=== PATIENT | female | born 1950 | race Hispanic/Latino ===

== ENCOUNTER 2021-04-21 19:59 | Inpatient (IN) | payer MEDICARE ==
[2021-04-21] MEDS ORDERED: dexAMETHasone 4 MG/ML VIAL IV ONE (21:23)
[2021-04-21] MEDS ORDERED: SODIUM CHLORIDE 0.9% 500 ML 500 ML IV ONE (21:23)
--- NOTE | 2021-04-21 21:27 | Emergency Department Report ---
ED General Adult HPI - General Chief complaint: Weakness Stated complaint: SYNCOPE PUI?: Yes Time Seen by Provider: 04/21/21 21:23 Source: patient, EMS (Verbal report received from emergency medical services. EMS documentation not available at time of chart dictation ), RN notes reviewed, old records reviewed Mode of arrival: Stretcher Limitations: Physical Limitation - History of Present Illness Initial comments: The patient was evaluated in the emergency department for symptoms described in the history of present illness. He/she was evaluated in the context of the global COVID-19 pandemic, which necessitated consideration that the patient might be at risk for infection with the virus that causes COVID-19. [facility] protocols and algorithms that pertain to the evaluation of patients at risk for COVID-19 are in a state of rapid change based on information released by regulatory bodies including the CDC and federal and state organizations. These policies and algorithms were followed during the patient's care in the emergency department. Please note that these policies, procedures and recommendations changed on a rapid basis. Past medical history: Diabetes, hypertension, high cholesterol The patient is a 70-year-old female who is not COVID-19 vaccinated. She is brought to the hospital by emergency medical services with an EMS articulated complaint of weakness, syncope, tachypnea, and hypoxia. EMS reports that they were called for the patient having an episode of weakness, and passing out. The patient denies physical pain. The patient admits to loss of taste and smell. Patient reports that significant other/partner has recently been diagnosed with COVID. Patient denies headache, neck pain, chest pain, abdominal pain, hematemesis and bright red blood per rectum. She feels short of breath. EMS reports the patient was hypoxic in the field to 90%, and they started her on 3 L of supple mental oxygen. EMS also notes that the patient is tachypneic. Patient corroborates that she feels tachypnea -: Gradual, hour(s) Consistency: constant Improves with: none Worsens with: none - Related Data Home Medications Medication Instructions Recorded Confirmed Last Taken Insulin NPH/Regular [NovoLIN 70/30] 20 unit SQ BID 12/15/12 12/15/12 12/05/12 Tramadol HCl [Ultram ER] 100 mg PO BID 12/15/12 12/15/12 12/14/12 lisinopriL [Zestril TAB] 5 mg PO QDAY 12/15/12 12/15/12 12/14/12 metFORMIN [Glucophage] 500 mg PO BID 12/15/12 12/15/12 12/04/12 Previous Rx's Medication Instructions Recorded Last Taken Type levoFLOXacin [Levaquin TAB] 500 mg PO Q24HR #7 tablet 12/17/12 Unknown Rx Allergies Allergy/AdvReac Type Severity Reaction Status Date / Time promethazine HCl AdvReac Unknown Verified 12/15/12 09:33 [From Phenergan] ED Review of Systems ROS: Stated complaint: SYNCOPE Other details as noted in HPI Constitutional: malaise, weakness ENT: other Respiratory: shortness of breath Cardiovascular: syncope. denies: chest pain Gastrointestinal: denies: abdominal pain, hematemesis, melena, hematochezia Neurological: weakness Hematological/Lymphatic: denies: easy bleeding ED Past Medical Hx - Past Medical History Hx Congestive Heart Failure: No Hx Diabetes: Yes Hx Asthma: No Hx COPD: No Additional medical history: fibromialgia, neuropathy, - Surgical History Additional Surgical History: galbladder x 25 yrs femur fx, tubal ligation - Social History Smoking Status: Never Smoker - Medications Home Medications: Home Medications Medication Instructions Recorded Confirmed Last Taken Type Insulin NPH/Regular [NovoLIN 70/30] 20 unit SQ BID 12/15/12 12/15/12 12/05/12 History Tramadol HCl [Ultram ER] 100 mg PO BID 12/15/12 12/15/12 12/14/12 History lisinopriL [Zestril TAB] 5 mg PO QDAY 12/15/12 12/15/12 12/14/12 History metFORMIN [Glucophage] 500 mg PO BID 12/15/12 12/15/12 12/04/12 History levoFLOXacin [Levaquin TAB] 500 mg PO Q24HR #7 tablet 12/17/12 Unknown Rx ED Physical Exam - General Limitations: Physical Limitation General appearance: alert, anxious, in distress, obese - Head Head exam: Present: atraumatic, normocephalic - Eye Eye exam: Present: normal appearance, EOMI - ENT ENT exam: Present: normal exam, normal orophraynx, mucous membranes moist, normal external ear exam - Neck Neck exam: Present: normal inspection, full ROM. Absent: tenderness, meningismus - Respiratory Respiratory exam: Present: respiratory distress, stridor, other (Tachypnea is noted. Pulmonary auscultation not performed secondary to lack of disposable steps) - Cardiovascular Cardiovascular Exam: Present: regular rate (Seen on EKG. Cardiac auscultation not performed secondary to lack of disposable stethoscope), normal rhythm - GI/Abdominal GI/Abdominal exam: Present: soft. Absent: distended, tenderness, guarding, rebound, rigid, pulsatile mass - Extremities Exam Extremities exam: Present: normal inspection, full ROM, other (2+ pulses noted in the bilateral upper and lower extremities. There is no palpable cord. negative Homans sign. Muscular compartments are soft. The pelvis is stable.). Absent: pedal edema, calf tenderness - Back Exam Back exam: Present: normal inspection. Absent: tenderness, CVA tenderness (R), CVA tenderness (L), paraspinal tenderness, vertebral tenderness - Neurological Exam Neurological exam: Present: alert, other (No facial droop. Tongue midline. Extraocular movements intact bilaterally. Facial sensation intact to light touch in V1, V2, V3 distribution bilaterally. 5 and a 5 strength in 4 extremities. Sensation intact to light touch in 4 extremities.) - Psychiatric Psychiatric exam: Present: anxious - Skin Skin exam: Present: warm, dry, intact, normal color. Absent: rash ED Course Vital Signs 04/22/21 01:06 Temperature 97.9 F Pulse Rate 90 Respiratory 20 Rate Blood Pressure 149/62 O2 Sat by Pulse 98 Oximetry - Reevaluation(s) Reevaluation #1: 04/21/21 22:06 Differential diagnosis, including but not limited to: Hypoxic respiratory failure, COVID-19, pulmonary embolism, dehydration, electrolyte derangement Assessment and plan: 70-year-old female presenting during the COVID-19 pandemic, who is not COVID-19 vaccinated, presenting with multiple for typical COVID symptoms, and syncope. She is currently awake, alert, oriented, sober and of sound mind. As per EMS reports she did not fall or hit her head, her caught her. Given advanced age, medical comorbidities, place patient on threat monitoring analyst, continue 3 L of supplemental oxygen, obtain EKG, appropriate laboratory studies, CT scan of the brain given history of syncope, CT angiogram chest given history of syncope and suspicion for COVID/pulmonary embolism, start patient on Decadron, antibiotics, admit the patient to the medical service once initial diagnostics have resulted. I discussed this plan of care with the patient. She is agreeable to this plan of care. Reassess after initial data points. Anticipate admission. 04/21/21 23:07 Laboratory studies are reviewed and appreciated. Patient found to be hyperglycemic with anion gap acidosis. Arterial blood gas ordered to further delineate. Insulin ordered. CT scan is pending. 04/21/21 23:42 Arterial blood gas demonstrates normal pH, but metabolic acidosis, with respiratory compensation. This may be secondary to diabetes/hyperglycemia, COVID-19, or both 04/21/21 23:52 Received verbal report from radiologist that patient has multi lobar pneumonia which is likely COVID-pneumonia, right-sided pulmonary emboli, segmental, and subsegmental, without evidence of right heart strain. CT scan of the brain is negative. Patient reports that she weighs 200 pounds, this is approximately 90 kg. Lovenox is ordered. Patient is updated on diagnoses and plan of care. Hospital physician, Dr. Oneil to admit to [facility] ED Medical Decision Making - Lab Data Result diagrams: 04/21/21 21:39 04/21/21 21:39 Lab Results 04/21/21 04/21/21 04/21/21 Range/Units 21:39 21:39 21:39 WBC (4.5-11.0) K/mm3 RBC (3.65-5.03) M/mm3 Hgb (10.1-14.3) gm/dl Hct (30.3-42.9) % MCV (79-97) fl MCH (28-32) pg MCHC (30-34) % RDW (13.2-15.2) % Plt Count (140-440) K/mm3 Seg Neutrophils % PT 15.5 H (12.2-14.9) Sec. INR 1.11 (0.87-1.13) D-Dimer > 76926 H (0-234) ng/mlDDU Sodium (137-145) mmol/L Potassium (3.6-5.0) mmol/L Chloride (98-107) mmol/L Carbon Dioxide (22-30) mmol/L Anion Gap mmol/L BUN (7-17) mg/dL Creatinine (0.6-1.2) mg/dL Estimated GFR ml/min BUN/Creatinine Ratio % Glucose 439 H (65-100) mg/dL Lactic Acid (0.7-2.0) mmol/L Calcium (8.4-10.2) mg/dL Magnesium (1.7-2.3) mg/dL Ferritin 399.4 H (10.0-200.0) ng/mL Total Bilirubin (0.1-1.2) mg/dL AST (5-40) units/L ALT (7-56) units/L Alkaline Phosphatase (35-129) units/L Lactate Dehydrogenase 509 H (91-180) units/L Troponin T (0.00-0.029) ng/mL C-Reactive Protein 19.00 H (0.00-1.30) mg/dL Total Protein (6.3-8.2) g/dL Albumin (3.9-5) g/dL Albumin/Globulin Ratio % 04/21/21 04/21/21 04/21/21 Range/Units 21:39 21:39 21:39 WBC 10.2 (4.5-11.0) K/mm3 RBC 4.13 (3.65-5.03) M/mm3 Hgb 11.8 (10.1-14.3) gm/dl Hct 36.6 (30.3-42.9) % MCV 89 (79-97) fl MCH 29 (28-32) pg MCHC 32 (30-34) % RDW 13.7 (13.2-15.2) % Plt Count 219 (140-440) K/mm3 Seg Neutrophils % Plan Checker PT (12.2-14.9) Sec. INR (0.87-1.13) D-Dimer (0-234) ng/mlDDU Sodium 134 L (137-145) mmol/L Potassium 4.9 (3.6-5.0) mmol/L Chloride 93.8 L (98-107) mmol/L Carbon Dioxide 16 L (22-30) mmol/L Anion Gap 29 mmol/L BUN 20 H (7-17) mg/dL Creatinine 0.7 (0.6-1.2) mg/dL Estimated GFR > 60 ml/min BUN/Creatinine Ratio 29 % Glucose 430 H 428 H (65-100) mg/dL Lactic Acid (0.7-2.0) mmol/L Calcium 9.3 (8.4-10.2) mg/dL Magnesium 1.70 (1.7-2.3) mg/dL Ferritin (10.0-200.0) ng/mL Total Bilirubin 0.90 (0.1-1.2) mg/dL AST 25 (5-40) units/L ALT 18 (7-56) units/L Alkaline Phosphatase 114 (35-129) units/L Lactate Dehydrogenase 498 H (91-180) units/L Troponin T < 0.010 (0.00-0.029) ng/mL C-Reactive Protein 18.70 H (0.00-1.30) mg/dL Total Protein 7.6 (6.3-8.2) g/dL Albumin 3.5 L (3.9-5) g/dL Albumin/Globulin Ratio 0.9 % 04/21/21 Range/Units 21:39 WBC (4.5-11.0) K/mm3 RBC (3.65-5.03) M/mm3 Hgb (10.1-14.3) gm/dl Hct (30.3-42.9) % MCV (79-97) fl MCH (28-32) pg MCHC (30-34) % RDW (13.2-15.2) % Plt Count (140-440) K/mm3 Seg Neutrophils % PT (12.2-14.9) Sec. INR (0.87-1.13) D-Dimer (0-234) ng/mlDDU Sodium (137-145) mmol/L Potassium (3.6-5.0) mmol/L Chloride (98-107) mmol/L Carbon Dioxide (22-30) mmol/L Anion Gap mmol/L BUN (7-17) mg/dL Creatinine (0.6-1.2) mg/dL Estimated GFR ml/min BUN/Creatinine Ratio % Glucose (65-100) mg/dL Lactic Acid 1.80 (0.7-2.0) mmol/L Calcium (8.4-10.2) mg/dL Magnesium (1.7-2.3) mg/dL Ferritin (10.0-200.0) ng/mL Total Bilirubin (0.1-1.2) mg/dL AST (5-40) units/L ALT (7-56) units/L Alkaline Phosphatase (35-129) units/L Lactate Dehydrogenase (91-180) units/L Troponin T (0.00-0.029) ng/mL C-Reactive Protein (0.00-1.30) mg/dL Total Protein (6.3-8.2) g/dL Albumin (3.9-5) g/dL Albumin/Globulin Ratio % Lab Results 04/21/21 04/21/21 04/21/21 Range/Units 21:39 21:39 21:39 WBC (4.5-11.0) K/mm3 RBC (3.65-5.03) M/mm3 Hgb (10.1-14.3) gm/dl Hct (30.3-42.9) % MCV (79-97) fl MCH (28-32) pg MCHC (30-34) % RDW (13.2-15.2) % Plt Count (140-440) K/mm3 Seg Neutrophils % PT 15.5 H (12.2-14.9) Sec. INR 1.11 (0.87-1.13) D-Dimer > 81174 H (0-234) ng/mlDDU ABG pH (7.350-7.450) pH Units ABG pCO2 mm Hg ABG pO2 (80.0-90.0) mm Hg ABG HCO3 (20.0-26.0) mmol/L ABG O2 Saturation (95.0-99.0) % ABG O2 Content (0.0-44) ABG Base Excess (-2.0-3.0) mmol/L ABG Hemoglobin (12.0-16.0) gm/dl ABG Carboxyhemoglobin (0.0-5.0) % ABG Methemoglobin (0.0-1.5) % Oxyhemoglobin (95.0-99.0) % FiO2 % Sodium (137-145) mmol/L Potassium (3.6-5.0) mmol/L Chloride (98-107) mmol/L Carbon Dioxide (22-30) mmol/L Anion Gap mmol/L BUN (7-17) mg/dL Creatinine (0.6-1.2) mg/dL Estimated GFR ml/min BUN/Creatinine Ratio % Glucose 439 H (65-100) mg/dL Lactic Acid (0.7-2.0) mmol/L Calcium (8.4-10.2) mg/dL Magnesium (1.7-2.3) mg/dL Ferritin 399.4 H (10.0-200.0) ng/mL Total Bilirubin (0.1-1.2) mg/dL AST (5-40) units/L ALT (7-56) units/L Alkaline Phosphatase (35-129) units/L Lactate Dehydrogenase 509 H (91-180) units/L Troponin T (0.00-0.029) ng/mL C-Reactive Protein 19.00 H (0.00-1.30) mg/dL Total Protein (6.3-8.2) g/dL Albumin (3.9-5) g/dL Albumin/Globulin Ratio % 04/21/21 04/21/21 04/21/21 Range/Units 21:39 21:39 21:39 WBC 10.2 (4.5-11.0) K/mm3 RBC 4.13 (3.65-5.03) M/mm3 Hgb 11.8 (10.1-14.3) gm/dl Hct 36.6 (30.3-42.9) % MCV 89 (79-97) fl MCH 29 (28-32) pg MCHC 32 (30-34) % RDW 13.7 (13.2-15.2) % Plt Count 219 (140-440) K/mm3 Seg Neutrophils % Plan Checker PT (12.2-14.9) Sec. INR (0.87-1.13) D-Dimer (0-234) ng/mlDDU ABG pH (7.350-7.450) pH Units ABG pCO2 mm Hg ABG pO2 (80.0-90.0) mm Hg ABG HCO3 (20.0-26.0) mmol/L ABG O2 Saturation (95.0-99.0) % ABG O2 Content (0.0-44) ABG Base Excess (-2.0-3.0) mmol/L ABG Hemoglobin (12.0-16.0) gm/dl ABG Carboxyhemoglobin (0.0-5.0) % ABG Methemoglobin (0.0-1.5) % Oxyhemoglobin (95.0-99.0) % FiO2 % Sodium 134 L (137-145) mmol/L Potassium 4.9 (3.6-5.0) mmol/L Chloride 93.8 L (98-107) mmol/L Carbon Dioxide 16 L (22-30) mmol/L Anion Gap 29 mmol/L BUN 20 H (7-17) mg/dL Creatinine 0.7 (0.6-1.2) mg/dL Estimated GFR > 60 ml/min BUN/Creatinine Ratio 29 % Glucose 430 H 428 H (65-100) mg/dL Lactic Acid (0.7-2.0) mmol/L Calcium 9.3 (8.4-10.2) mg/dL Magnesium 1.70 (1.7-2.3) mg/dL Ferritin (10.0-200.0) ng/mL Total Bilirubin 0.90 (0.1-1.2) mg/dL AST 25 (5-40) units/L ALT 18 (7-56) units/L Alkaline Phosphatase 114 (35-129) units/L Lactate Dehydrogenase 498 H (91-180) units/L Troponin T < 0.010 (0.00-0.029) ng/mL C-Reactive Protein 18.70 H (0.00-1.30) mg/dL Total Protein 7.6 (6.3-8.2) g/dL Albumin 3.5 L (3.9-5) g/dL Albumin/Globulin Ratio 0.9 % 04/21/21 04/21/21 Range/Units 21:39 23:23 WBC (4.5-11.0) K/mm3 RBC (3.65-5.03) M/mm3 Hgb (10.1-14.3) gm/dl Hct (30.3-42.9) % MCV (79-97) fl MCH (28-32) pg MCHC (30-34) % RDW (13.2-15.2) % Plt Count (140-440) K/mm3 Seg Neutrophils % PT (12.2-14.9) Sec. INR (0.87-1.13) D-Dimer (0-234) ng/mlDDU ABG pH 7.358 (7.350-7.450) pH Units ABG pCO2 25.4 mm Hg ABG pO2 79.4 L (80.0-90.0) mm Hg ABG HCO3 14.0 L (20.0-26.0) mmol/L ABG O2 Saturation 95.6 (95.0-99.0) % ABG O2 Content 14.9 (0.0-44) ABG Base Excess -10.0 L (-2.0-3.0) mmol/L ABG Hemoglobin 11.2 L (12.0-16.0) gm/dl ABG Carboxyhemoglobin 0.8 (0.0-5.0) % ABG Methemoglobin 0.4 (0.0-1.5) % Oxyhemoglobin 94.4 L (95.0-99.0) % FiO2 36 % Sodium (137-145) mmol/L Potassium (3.6-5.0) mmol/L Chloride (98-107) mmol/L Carbon Dioxide (22-30) mmol/L Anion Gap mmol/L BUN (7-17) mg/dL Creatinine (0.6-1.2) mg/dL Estimated GFR ml/min BUN/Creatinine Ratio % Glucose (65-100) mg/dL Lactic Acid 1.80 (0.7-2.0) mmol/L Calcium (8.4-10.2) mg/dL Magnesium (1.7-2.3) mg/dL Ferritin (10.0-200.0) ng/mL Total Bilirubin (0.1-1.2) mg/dL AST (5-40) units/L ALT (7-56) units/L Alkaline Phosphatase (35-129) units/L Lactate Dehydrogenase (91-180) units/L Troponin T (0.00-0.029) ng/mL C-Reactive Protein (0.00-1.30) mg/dL Total Protein (6.3-8.2) g/dL Albumin (3.9-5) g/dL Albumin/Globulin Ratio % Vital Signs 04/22/21 01:06 Temperature 97.9 F Pulse Rate 90 Respiratory 20 Rate Blood Pressure 149/62 O2 Sat by Pulse 98 Oximetry - EKG Data -: EKG Interpreted by Ga EKG shows normal: sinus rhythm Rate: normal - EKG Data 04/21/21 22:05 The EKG is interpreted at 21: 32 Motion artifact. Sinus rhythm. 91 bpm. Normal axis, borderline normal P wave axis, poor R wave progression, and QTC 4 7 0 ms. Abnormal EKG. Not a STEMI. - Radiology Data Radiology results: pending, report reviewed, image reviewed interpreted by me: Portable 1 view chest x-ray, interpreted by myself, shows multilobar infiltrates, no pneumothorax, unremarkable bony anatomy. CHEST 1 VIEW 04/21/2021 9:27 PM INDICATION / CLINICAL INFORMATION: COVID-19, hypoxia, syncope. COMPARISON: One view of the chest from 12/15/2012. FINDINGS: SUPPORT DEVICES: None. HEART / MEDIASTINUM: No significant abnormality. LUNGS / PLEURA: There are multifocal bilateral airspace opacities, left greater than right. No significant pleural effusion. No pneumothorax. ADDITIONAL FINDINGS: No significant additional findings. IMPRESSION: Suspected bilateral pneumonia. Signer Name: Ras Brady MD Signed: 04/21/2021 9:[address] head without contrast INDICATION : Hypoxia, Syncope, suspected Covid. TECHNIQUE: Axial imaging performed from the skull apex through the skull base without the use of contrast. All CT scans at this location are performed using CT dose reduction for ALARA by means of automated exposure control. COMPARISON: None FINDINGS: Parenchyma: No acute intracranial hemorrhage or parenchymal abnormality. Periventricular and deep white matter hypodensities are present which most likely reflect changes of microangiopathy. Ventricles: Ventricles are normal in size and appear symmetric. Soft tissues: Soft tissues including the orbits appear normal. Bones: No acute osseous abnormality. Sinuses: Sinuses and mastoid air cells are clear. IMPRESSION: No acute abnormality. Signer Name: Tal Hopkins MD Signed: 04/21/2021 10:36 PM Workstation Name: [id number] CTA chest with contrast INDICATION : Covid suspected, Hypoxia, Syncope. TECHNIQUE: Axial imaging performed through the chest, with contrast bolus timing set to maximize opacification of the pulmonary arteries. 3-plane MIP reformatted images were obtained. All CT scans at this location are performed using CT dose reduction for ALARA by means of automated exposure control. 100 mL of intr avenous contrast administered. COMPARISON: None FINDINGS: Bolus/PTE: Contrast bolus timing is adequate. There is a tiny marginal segmental thrombus in the right upper lobe and a tiny subsegmental thrombus in the right lower lobe. Mediastinum: Normal heart size with moderate atherosclerotic disease in the coronary arteries. Several shoddy mediastinal lymph nodes are present. Lungs: There is moderate patchy multifocal groundglass airspace disease. No effusion. Upper abdomen: Limited imaging of the upper abdomen shows nothing acute. Bones: Degenerative changes in the spine with nothing acute. IMPRESSION: 1. Positive for PTE as above. 2. Findings of moderate Covid pneumonia. COMMUNICATION: Time of Communication (PUMP SERVICER HELPER/CDT): 10:46 PM Licensed Practitioner Receiving Report: Dr. Simmons Signer Name: Tal Hopkins MD Signed: 04/21/2021 10:48 PM Workstation Name: [id number] Critical Care Time: Yes Critical care time in (mins) excluding proc time.: 45 Critical care attestation.: If time is entered above; I have spent that time in minutes in the direct care of this critically ill patient, excluding procedure time. ED Disposition Clinical Impression: Acute respiratory failure with hypoxia, Syncope, Suspected COVID-19 virus infection, Hyperglycemia, Metabolic acidosis, Pulmonary emboli Disposition: ADMITTED INPATIENT Is pt being admited?: Yes Does the pt Need Aspirin: No Condition: Fair
[2021-04-21] MEDS ORDERED: cefTRIAXone/NS 1 GM/50 ML 1 GM/50 ML BAG IV ONE (22:02)
[2021-04-21] MEDS ORDERED: AZITHROMYCIN/NS 500 MG/250 ML 500 MG/250 ML BAG IV ONE (22:02)
--- NOTE | 2021-04-21 22:07 | XRay Report ---
CHEST 1 VIEW 04/21/2021 9:27 PM INDICATION / CLINICAL INFORMATION: COVID-19, hypoxia, syncope. COMPARISON: One view of the chest from 12/15/2012. FINDINGS: SUPPORT DEVICES: None. HEART / MEDIASTINUM: No significant abnormality. LUNGS / PLEURA: There are multifocal bilateral airspace opacities, left greater than right. No signif icant pleural effusion. No pneumothorax. ADDITIONAL FINDINGS: No significant additional findings. IMPRESSION: Suspected bilateral pneumonia. Signer Name: Ras Brady MD Signed: 04/21/2021 10:03 PM Workstation Name: [id number]
[2021-04-21 22:27] LABS: Hematocrit 36.6 % (30.3-42.9); Hemoglobin 11.8 gm/dl (10.1-14.3); Mean Corpuscular HGB Conc 32 % (30-34); Mean Corpuscular Volume 89 fl (79-97); Platelet Count 219 K/mm3 (140-440); Red Blood Count 4.13 M/mm3 (3.65-5.03); Red Cell Distribution Width 13.7 % (13.2-15.2)
[2021-04-21 22:28] LABS: Alanine Aminotransferase 18 units/L (7-56); Albumin 3.5 g/dL (3.9-5); Blood Urea Nitrogen 20 mg/dL (7-17); Calcium 9.3 mg/dL (8.4-10.2); Hemolysis Index 5
[2021-04-21 22:29] LABS: C-Reactive Protein 18.7 mg/dL (0.00-1.30)
[2021-04-21 22:35] LABS: INR 1.11 (0.87-1.13)
[2021-04-21 22:41] LABS: BUN/Creatinine Ratio 29
[2021-04-21] MEDS ORDERED: INSULIN REGULAR, HUMAN 100 UNITS/1 ML IV ONE (23:06)
[2021-04-21 23:39] LABS: ABG Methemoglobin 0.4 % (0.0-1.5); ABG Oxygen Saturation 95.6 % (95.0-99.0); ABG PCO2 25.4 mm Hg; ABG PH 7.358 pH Units (7.350-7.450); ABG PO2 79.4 mm Hg (80.0-90.0)
--- NOTE | 2021-04-21 23:40 | Cat Scan Report ---
CT head without contrast INDICATION : Hypoxia, Syncope, suspected Covid. TECHNIQUE: Axial imaging performed from the skull apex through the skull base without the use of con trast. All CT scans at this location are performed using CT dose reduction for ALARA by means of aut omated exposure control. COMPARISON: None FINDINGS: Parenchyma: No acute intracranial hemorrhage or parenchymal abnormality. Periventricular and deep wh ite matter hypodensities are present which most likely reflect changes of microangiopathy. Ventricles: Ventricles are normal in size and appear symmetric. Soft tissues: Soft tissues including the orbits appear normal. Bones: No acute osseous abnormality. Sinuses: Sinuses and mastoid air cells are clear. IMPRESSION: No acute abnormality. Signer Name: Tal Hopkins MD Signed: 04/21/2021 11:36 PM Workstation Name: [id number]
[2021-04-21] MEDS ORDERED: ENOXAPARIN 100 MG/1 ML INJ SUB-Q STA (23:50)
--- NOTE | 2021-04-21 23:52 | Cat Scan Report ---
CTA chest with contrast INDICATION : Covid suspected, Hypoxia, Syncope. TECHNIQUE: Axial imaging performed through the chest, with contrast bolus timing set to maximize opa cification of the pulmonary arteries. 3-plane MIP reformatted images were obtained. All CT scans at this location are performed using CT dose reduction for ALARA by means of automated exposure control. 100 mL of intravenous contrast administered. COMPARISON: None FINDINGS: Bolus/PTE: Contrast bolus timing is adequate. There is a tiny marginal segmental thrombus in the ri ght upper lobe and a tiny subsegmental thrombus in the right lower lobe. Mediastinum: Normal heart size with moderate atherosclerotic disease in the coronary arteries. Desiree ral shoddy mediastinal lymph nodes are present. Lungs: There is moderate patchy multifocal groundglass airspace disease. No effusion. Upper abdomen: Limited imaging of the upper abdomen shows nothing acute. Bones: Degenerative changes in the spine with nothing acute. IMPRESSION: 1. Positive for PTE as above. 2. Findings of moderate Covid pneumonia. COMMUNICATION: Time of Communication (BUNDLE SORTER/CDT): 10:46 PM Licensed Practitioner Receiving Report: Dr. Simmons Signer Name: Tal Hopkins MD Signed: 04/21/2021 11:48 PM Workstation Name: [id number]
[2021-04-22 00:51] LABS: Anisocytosis 1+; Basophils % (Manual) 0 % (0.0-1.8); Eosinophils % (Manual) 0 % (0.0-4.3); Total Cells Counted 100
[2021-04-22] MEDS ORDERED: DEXTROSE 50% IN WATER (25GM) 50 ML SYRINGE IV PRN (01:39)
[2021-04-22] MEDS ORDERED: MORPHINE 2 MG/1 ML INJ IV PRN (01:39)
[2021-04-22] MEDS ORDERED: ACETAMINOPHEN 325 MG TAB PO PRN (01:39)
[2021-04-22] MEDS ORDERED: HYDROmorphone 1 MG/1 ML INJ IV PRN (01:39)
[2021-04-22] MEDS ORDERED: ALBUTEROL 2.5 MG/3 ML NEBU IH PRN (01:39)
[2021-04-22] MEDS ORDERED: ONDANSETRON 4 MG/2 ML INJ IV PRN (01:39)
[2021-04-22] MEDS ORDERED: hydrALAZINE 20 MG/1 ML INJ IV PRN (01:42)
--- NOTE | 2021-04-22 01:49 | History and Physical Report ---
History of Present Illness Date of examination: 04/22/21 Date of admission: 04/21/21 23:53 Chief complaint: Weakness Syncope History of present illness: 70-year-old female with past medical history of hypertension, diabetes, hyperlipidemia, not vaccinated against COVID was brought to the emergency room by EMS because of weakness, syncope, tachypnea, and hypoxia. EMS reports that they were called for the patient having an episode of weakness, and passing out. The patient denies physical pain. The patient admits to loss of taste and smell. Patient reports that significant other/partner has recently been diagnosed with COVID. Patient denies headache, neck pain, chest pain, abdominal pain, hematemesis and bright red blood per rectum. She feels short of breath. EMS reports the patient was hypoxic in the field to 90%, and they started her on 3 L of supp lemental oxygen. EMS also notes that the patient is tachypneic. Patient corroborates that she feels tachypnea In the emergency room patient has a CT scan of the chest which shows there is a tiny marginal segmental thrombus in the right upper lobe and a tiny segmental thrombus in the right lower lobe. There is moderate patchy multifocal groundglass airspace disease. No effusion. We are going to admit the patient with the diagnosis of COVID-pneumonia and pulmonary embolism and respiratory fa ilure. We will consult infectious disease as well as pulmonary for evaluation Past History Past Medical History: diabetes, hypertension, hyperlipidemia, other (Fibromyalgia) Medications and Allergies Allergies Allergy/AdvReac Type Severity Reaction Status Date / Time promethazine HCl AdvReac Unknown Verified 12/15/12 09:33 [From Phenergan] Home Medications Medication Instructions Recorded Confirmed Last Taken Type Insulin NPH/Regular [NovoLIN 70/30] 20 unit SQ BID 12/15/12 12/15/12 12/05/12 History Tramadol HCl [Ultram ER] 100 mg PO BID 12/15/12 12/15/12 12/14/12 History lisinopriL [Zestril TAB] 5 mg PO QDAY 12/15/12 12/15/12 12/14/12 History metFORMIN [Glucophage] 500 mg PO BID 12/15/12 12/15/12 12/04/12 History levoFLOXacin [Levaquin TAB] 500 mg PO Q24HR #7 tablet 12/17/12 Unknown Rx Active Meds: Active Medications Dexamethasone (Dexamethasone 4 Mg/Ml Vial) 6 mg IV ONCE ONE Stop: 04/22/21 02:31 Azithromycin (Zithromax/Ns) 500 mg in 250 mls @ 250 mls/hr IV ONCE ONE; Protocol Stop: 04/22/21 03:29 Ceftriaxone Sodium (Rocephin/Ns 1 Gm/50 Ml) 1 gm in 50 mls @ 100 mls/hr IV ONCE ONE; Protocol Stop: 04/22/21 02:59 Sodium Chloride (Nacl 0.9% 500 Ml) 500 mls @ 999 mls/hr IV ONCE ONE Stop: 04/22/21 03:10 Insulin Human Regular (Insulin Regular, Human 100 Units/1 Ml) 6 units IV ONCE ONE Stop: 04/22/21 02:41 Review of Systems Constitutional: weakness, malaise Cardiovascular: syncope, shortness of breath, dyspnea on exertion Respiratory: shortness of breath, dyspnea on exertion Exam - Constitutional Vitals: Temp Pulse Resp BP Pulse Ox 97.9 F 90 20 149/62 98 04/22/21 01:06 04/22/21 01:06 04/22/21 01:06 04/22/21 01:06 04/22/21 01:06 General appearance: Present: no acute distress, well-nourished - EENT Eyes: Present: PERRL ENT: hearing intact, clear oral mucosa - Neck Neck: Present: supple, normal ROM - Respiratory Respiratory effort: normal Respiratory: bilateral: diminished - Cardiovascular Heart Sounds: Present: S1 & S2. Absent: rub, click - Extremities Extremities: pulses symmetrical, No edema Peripheral Pulses: within normal limits - Abdominal General gastrointestinal: Present: soft, non-tender, non-distended, normal bowel sounds Female genitourinary: Present: normal - Integumentary Integumentary: Present: clear, warm, dry - Musculoskeletal Musculoskeletal: gait normal, strength equal bilaterally - Psychiatric Psychiatric: appropriate mood/affect, intact judgment & insight - Neurologic Neurologic: CNII-XII intact, moves all extremities HEART Score - HEART Score Troponin: Troponin T < 0.010 ng/mL (0.00-0.029) 04/21/21 21:39 Results - Labs CBC & Chem 7: 04/21/21 21:39 04/21/21 21:39 Labs: Laboratory Last Values WBC 10.2 K/mm3 (4.5-11.0) 04/21/21 21:39 RBC 4.13 M/mm3 (3.65-5.03) 04/21/21 21:39 Hgb 11.8 gm/dl (10.1-14.3) 04/21/21 21:39 Hct 36.6 % (30.3-42.9) 04/21/21 21:39 MCV 89 fl (79-97) 04/21/21 21:39 MCH 29 pg (28-32) 04/21/21 21:39 MCHC 32 % (30-34) 04/21/21 21:39 RDW 13.7 % (13.2-15.2) 04/21/21 21:39 Plt Count 219 K/mm3 (140-440) 04/21/21 21:39 Add Manual Diff Complete 04/21/21 21:39 Total Counted 100 04/21/21 21:39 Seg Neutrophils % Bookkeepers Supervisor 04/21/21 21:39 Seg Neuts % (Manual) 89.0 % (40.0-70.0) H 04/21/21 21:39 Band Neutrophils % 0 % 04/21/21 21:39 Lymphocytes % (Manual) 8.0 % (13.4-35.0) L 04/21/21 21:39 Reactive Lymphs % (Man) 0 % 04/21/21 21:39 Monocytes % (Manual) 3.0 % (0.0-7.3) 04/21/21 21:39 Eosinophils % (Manual) 0 % (0.0-4.3) 04/21/21 21:39 Basophils % (Manual) 0 % (0.0-1.8) 04/21/21 21:39 Metamyelocytes % 0 % 04/21/21 21:39 Myelocytes % 0 % 04/21/21 21:39 Promyelocytes % 0 % 04/21/21 21:39 Blast Cells % 0 % 04/21/21 21:39 Nucleated RBC % Not Reportable 04/21/21 21:39 Seg Neutrophils # Man 9.1 K/mm3 (1.8-7.7) H 04/21/21 21:39 Band Neutrophils # 0.0 K/mm3 04/21/21 21:39 Lymphocytes # (Manual) 0.8 K/mm3 (1.2-5.4) L 04/21/21 21:39 Abs React Lymphs (Man) 0.0 K/mm3 04/21/21 21:39 Monocytes # (Manual) 0.3 K/mm3 (0.0-0.8) 04/21/21 21:39 Eosinophils # (Manual) 0.0 K/mm3 (0.0-0.4) 04/21/21 21:39 Basophils # (Manual) 0.0 K/mm3 (0.0-0.1) 04/21/21 21:39 Metamyelocytes # 0.0 K/mm3 04/21/21 21:39 Myelocytes # 0.0 K/mm3 04/21/21 21:39 Promyelocytes # 0.0 K/mm3 04/21/21 21:39 Blast Cells # 0.0 K/mm3 04/21/21 21:39 WBC Morphology Not Reportable 04/21/21 21:39 Hypersegmented Neuts Not Reportable 04/21/21 21:39 Hyposegmented Neuts Not Reportable 04/21/21 21:39 Hypogranular Neuts Not Reportable 04/21/21 21:39 Smudge Cells Not Reportable 04/21/21 21:39 Toxic Granulation Not Reportable 04/21/21 21:39 Toxic Vacuolation Not Reportable 04/21/21 21:39 Dohle Bodies Not Reportable 04/21/21 21:39 Pelger-Huet Anomaly Not Reportable 04/21/21 21:39 Florentino Rods Not Reportable 04/21/21 21:39 Platelet Estimate Not Reportable 04/21/21 21:39 Clumped Platelets Not Reportable 04/21/21 21:39 Plt Clumps, EDTA Not Reportable 04/21/21 21:39 Large Platelets Not Reportable 04/21/21 21:39 Giant Platelets Not Reportable 04/21/21 21:39 Platelet Satelliting Not Reportable 04/21/21 21:39 Plt Morphology Comment Not Reportable 04/21/21 21:39 RBC Morphology Not Reportable 04/21/21 21:39 Dimorphic RBCs Not Reportable 04/21/21 21:39 Polychromasia Not Reportable 04/21/21 21:39 Hypochromasia Not Reportable 04/21/21 21:39 Poikilocytosis Not Reportable 04/21/21 21:39 Anisocytosis 1+ 04/21/21 21:39 Microcytosis Not Reportable 04/21/21 21:39 Macrocytosis Not Reportable 04/21/21 21:39 Spherocytes Not Reportable 04/21/21 21:39 Pappenheimer Bodies Not Reportable 04/21/21 21:39 Sickle Cells Not Reportable 04/21/21 21:39 Target Cells Not Reportable 04/21/21 21:39 Tear Drop Cells Not Reportable 04/21/21 21:39 Ovalocytes Not Reportable 04/21/21 21:39 Helmet Cells Not Reportable 04/21/21 21:39 [place] Bodies Not Reportable 04/21/21 21:39 [place] Rings Not Reportable 04/21/21 21:39 [place] Cells Not Reportable 04/21/21 21:39 Bite Cells Not Reportable 04/21/21 21:39 Crenated Cell Not Reportable 04/21/21 21:39 Elliptocytes Not Reportable 04/21/21 21:39 Acanthocytes (Spur) Not Reportable 04/21/21 21:39 Rouleaux Not Reportable 04/21/21 21:39 Hemoglobin C Crystals Not Reportable 04/21/21 21:39 Schistocytes Not Reportable 04/21/21 21:39 Malaria parasites Not Reportable 04/21/21 21:39 Alex Bodies Not Reportable 04/21/21 21:39 Hem Pathologist Commnt No 04/21/21 21:39 PT 15.5 Sec. (12.2-14.9) H 04/21/21 21:39 INR 1.11 (0.87-1.13) 04/21/21 21:39 D-Dimer > 59037 ng/mlDDU (0-234) H 04/21/21 21:39 ABG pH 7.358 pH Units (7.350-7.450) 04/21/21 23:23 ABG pCO2 25.4 mm Hg 04/21/21 23:23 ABG pO2 79.4 mm Hg (80.0-90.0) L 04/21/21 23:23 ABG HCO3 14.0 mmol/L (20.0-26.0) L 04/21/21 23:23 ABG O2 Saturation 95.6 % (95.0-99.0) 04/21/21 23:23 ABG O2 Content 14.9 (0.0-44) 04/21/21 23:23 ABG Base Excess -10.0 mmol/L (-2.0-3.0) L 04/21/21 23:23 ABG Hemoglobin 11.2 gm/dl (12.0-16.0) L 04/21/21 23: ABG Carboxyhemoglobin 0.8 % (0.0-5.0) 04/21/21 23: ABG Methemoglobin 0.4 % (0.0-1.5) 04/21/21 23: Oxyhemoglobin 94.4 % (95.0-99.0) L 04/21/21 23: FiO2 36 % 04/21/21 23:23 Sodium 134 mmol/L (137-145) L 04/21/21 21:39 Potassium 4.9 mmol/L (3.6-5.0) 04/21/21 21:39 Chloride 93.8 mmol/L (98-107) L 04/21/21 21:39 Carbon Dioxide 16 mmol/L (22-30) L 04/21/21 21:39 Anion Gap 29 mmol/L 04/21/21 21:39 BUN 20 mg/dL (7-17) H 04/21/21 21:39 Creatinine 0.7 mg/dL (0.6-1.2) 04/21/21 21:39 Estimated GFR > 60 ml/min 04/21/21 21:39 BUN/Creatinine Ratio 29 % 04/21/21 21:39 Glucose 428 mg/dL (65-100) H 04/21/21 21:39 Glucose 430 mg/dL (65-100) H 04/21/21 21:39 Glucose 439 mg/dL (65-100) H 04/21/21 21:39 Lactic Acid 1.80 mmol/L (0.7-2.0) 04/21/21 21:39 Calcium 9.3 mg/dL (8.4-10.2) 04/21/21 21:39 Magnesium 1.70 mg/dL (1.7-2.3) 04/21/21 21:39 Ferritin 399.4 ng/mL (10.0-200.0) H 04/21/21 21:39 Total Bilirubin 0.90 mg/dL (0.1-1.2) 04/21/21 21:39 AST 25 units/L (5-40) 04/21/21 21:39 ALT 18 units/L (7-56) 04/21/21 21:39 Alkaline Phosphatase 114 units/L (35-129) 04/21/21 21:39 Lactate Dehydrogenase 498 units/L (91-180) H 04/21/21 21:39 Lactate Dehydrogenase 509 units/L (91-180) H 04/21/21 21:39 Troponin T < 0.010 ng/mL (0.00-0.029) 04/21/21 21:39 C-Reactive Protein 18.70 mg/dL (0.00-1.30) H 04/21/21 21:39 C-Reactive Protein 19.00 mg/dL (0.00-1.30) H 04/21/21 21:39 Total Protein 7.6 g/dL (6.3-8.2) 04/21/21 21:39 Albumin 3.5 g/dL (3.9-5) L 04/21/21 21:39 Albumin/Globulin Ratio 0.9 % 04/21/21 21:39 Urine RBC (Auto) 3.0 /HPF (0.0-6.0) 04/22/21 01:15 U Epithel Cells (Auto) 2.0 /HPF (0-13.0) 04/22/21 01:15 - Imaging and Cardiology Chest x-ray: report reviewed CT scan - chest: report reviewed Assessment and Plan VTE prophylaxis?: Chemical Plan of care discussed with patient/family: Yes - Patient Problems (1) Acute respiratory failure with hypoxia Current Visit: Yes Status: Acute Plan to address problem: Admit the patient to the medical floor. Oxygen via nasal cannula 3 to permit. DuoNeb nebulizer every 4 hours. Albuterol via nebulizer every 4 hours as needed. Rocephin 2 g IV daily. Zithromax 500 mg IV daily. Decadron 6 mg IV daily. We will do the blood cultures and sputum culture. We sent COVID PCR. Follow COVID inflammatory marker. We will consult pulmonary as well as infectious disease evaluation (2) Suspected COVID-19 virus infection Current Visit: Yes Status: Acute Plan to address problem: Oxygen via nasal cannula 3 to permit. DuoNeb nebulizer every 4 hours. Albuterol via nebulizer every 4 hours as needed. Rocephin 2 g IV daily. Zithromax 500 mg IV daily. Decadron 6 mg IV daily. We will do the blood cul tures and sputum culture. We sent COVID PCR. Follow COVID inflammatory marker. We will consult pulmonary as well as infectious disease evaluation (3) Diabetes Current Visit: Yes Status: Acute Plan to address problem: 1800 kcal ADA diet. Humalog sliding scale moderate dose with Accu-Chek before meals and at bedtime. Diabetic education (4) Hypertension Current Visit: Yes Status: Acute Plan to address problem: Hydralazine 10 mg IV every 6 hours as needed. We continue the home medication. We monitor the blood pressure closely (5) Hyperlipidemia Current Visit: Yes Status: Acute Plan to address problem: Stable. We continue the home medication (6) Metabolic acidosis Current Visit: Yes Status: Acute Plan to address problem: Half-normal saline at the rate of 100 cc/h. Recheck BMP in the morning (7) Pulmonary emboli Current Visit: Yes Status: Acute Plan to address problem: Lovenox 1 mg/kg subcu every 12 hours. Oxygen by nasal catheter per minute. We consult pulmonary for evaluation (8) Syncope Current Visit: Yes Status: Acute Plan to address problem: Initial cardiac enzyme is negative troponin is 0.010. We will follow the echocardiogram. Consult cardiology if needed (9) DVT prophylaxis Current Visit: Yes Status: Acute Plan to address problem: Lovenox 1 mg/kg subcu every 12 hours for DVT prophylaxis. Pepcid 20 mg p.o. twice daily for GI prophylaxis. Patient is a full code
[2021-04-22] MEDS ORDERED: AZITHROMYCIN/NS 500 MG/250 ML 500 MG/250 ML BAG IV ONE (02:30)
[2021-04-22] MEDS ORDERED: dexAMETHasone 4 MG/ML VIAL IV ONE (02:30)
[2021-04-22] MEDS ORDERED: cefTRIAXone/NS 1 GM/50 ML 1 GM/50 ML BAG IV ONE (02:30)
[2021-04-22] MEDS ORDERED: INSULIN REGULAR, HUMAN 100 UNITS/1 ML IV ONE (02:40)
[2021-04-22] MEDS ORDERED: SODIUM CHLORIDE 0.9% 500 ML 500 ML IV ONE (02:40)
[2021-04-22 02:57] LABS: Bacteria,Urine 3+ /HPF (Negative); Bilirubin,Urine NEG (Negative); Blood,Urine NEG (Negative); Color,Urine Yellow (Yellow); Urobilinogen,Urine < 2.0 mg/dL (<2.0)
[2021-04-22] MEDS: IPRATROPIUM/ALBUTEROL SULFATE 3 ML AMPUL.NEB IH SCH ×4 (04:14→20:27)
[2021-04-22] MEDS: metFORMIN 500 MG TAB PO SCH ×2 (09:08→16:40)
[2021-04-22] MEDS ORDERED: dexAMETHasone 4 MG/ML VIAL IV SCH (10:00)
[2021-04-22] MEDS ORDERED: ENOXAPARIN 100 MG/1 ML INJ SUB-Q SCH (10:00)
[2021-04-22] MEDS ORDERED: AZITHROMYCIN/NS 500 MG/250 ML 500 MG/250 ML BAG IV SCH (10:00)
[2021-04-22] MEDS: INSULIN LISPRO 100 UNIT/ML SUB-Q SCH ×4 (10:02→23:02)
--- NOTE | 2021-04-22 10:59 | Electrocardiograph Report ---
[facility] Test Date: 2021-04-21 Test Time: 21:32:25 Pat Name: IRMA JAFFE Department: Room: [place] [address] Gender: F Doubler Operator: YULISSA : 1950 Requested By: RIKKI MOCTEZUMA Order Number: [id number] Reading MD: Ziyad Mazariegos Measurements Intervals [place] Rate: 91 P: 79 [place]: 164 QRS: 31 QRSD: 86 T: 45 QT: 382 QTc: 470 Interpretive Statements Sinus rhythm Low voltage, precordial leads Consider anteroseptal infarct No previous ECG available for comparison Electronically Signed On 04-22-2021 10:58:42 EST by Ziyad Mazariegos
--- NOTE | 2021-04-22 11:50 | Consultation ---
History of Present Illness Consult date: 04/22/21 Requesting physician: ALYSON CLEMENT Reason for consult: pneumonia (COVID-19 infection) History of present illness: PULMONARY/CCM CONSULT NOTE (Full dictation # ) Please see dictated notes for full details Past History Past Medical History: diabetes, hypertension, hyperlipidemia, other (Fibromyalgia) Medications and Allergies Allergies Allergy/AdvReac Type Severity Reaction Status Date / Time promethazine HCl AdvReac Unknown Verified 12/15/12 09:33 [From Phenergan] Home Medications Medication Instructions Recorded Confirmed Last Taken Type Insulin NPH/Regular [NovoLIN 70/30] 20 unit SQ BID 12/15/12 12/15/12 12/05/12 History Tramadol HCl [Ultram ER] 100 mg PO BID 12/15/12 12/15/12 12/14/12 History lisinopriL [Zestril TAB] 5 mg PO QDAY 12/15/12 12/15/12 12/14/12 History metFORMIN [Glucophage] 500 mg PO BID 12/15/12 12/15/12 12/04/12 History levoFLOXacin [Levaquin TAB] 500 mg PO Q24HR #7 tablet 12/17/12 Unknown Rx Active Meds: Active Medications Acetaminophen (Acetaminophen 325 Mg Tab) 650 mg PO Q4H PRN PRN Reason: Pain MILD(1-3)/Fever >100.5/YUSUF Albuterol (Albuterol 2.5 Mg/3 Ml Nebu) 2.5 mg IH Q4HRT PRN PRN Reason: Shortness Of Breath Albuterol/Ipratropium (Ipratropium/Albuterol Sulfate 3 Ml Ampul.Neb) 1 ampul IH Q6HRT [facility] Last Admin: 04/22/21 09:49 Dose: Not Given Azithromycin (Azithromycin 250 Mg Tab) 500 mg PO QHS [facility] Stop: 04/25/21 22:01 Dexamethasone (Dexamethasone 4 Mg/Ml Vial) 6 mg IV DAILY [facility] Stop: 05/01/21 10:01 Dextrose (Dextrose 50% In Water (25gm) 50 Ml Syringe) 0 ml IV Q30MIN PRN; Protocol PRN Reason: Hypoglycemia Enoxaparin Sodium (Enoxaparin 100 Mg/1 Ml Inj) 100 mg SUB-Q Q12HR [facility]; Protocol Famotidine (Famotidine 20 Mg Tab) 20 mg PO BID [facility] Hydralazine HCl (Hydralazine 20 Mg/1 Ml Inj) 10 mg IV Q6H PRN PRN Reason: Blood Pressure Hydromorphone HCl (Hydromorphone 1 Mg/1 Ml Inj) 0.5 mg IV Q3H PRN PRN Reason: Pain , Severe (7-10) Ceftriaxone Sodium (Rocephin/Ns 2 Gm/100 Ml) 2 gm in 100 mls @ 200 mls/hr IV Q24HR@2200 [facility]; Protocol Stop: 04/25/21 22:29 Insulin Human Lispro (Insulin Lispro 100 Unit/Ml) 0 unit SUB-Q ACHS [facility]; Protocol Last Admin: 04/22/21 10:02 Dose: 8 unit Lisinopril (Lisinopril 5 Mg Tab) 5 mg PO QDAY [facility] Metformin HCl (Metformin 500 Mg Tab) 500 mg PO BIDDIAB [facility] Last Admin: 04/22/21 09:08 Dose: Not Given Morphine Sulfate (Morphine 2 Mg/1 Ml Inj) 2 mg IV Q4H PRN PRN Reason: Pain, Moderate (4-6) Ondansetron HCl (Ondansetron 4 Mg/2 Ml Inj) 4 mg IV Q8H PRN PRN Reason: Nausea And Vomiting Sodium Chloride (Sodium Chloride 0.9% 10 Ml Flush Syringe) 10 ml IV BID [facility] Sodium Chloride (Sodium Chloride 0.9% 10 Ml Flush Syringe) 10 ml IV PRN PRN PRN Reason: LINE FLUSH Physical Examination Vital signs: Vital Signs Temp Pulse Resp BP Pulse Ox 97.9 F 90 20 149/62 98 04/22/21 01:06 04/22/21 01:06 04/22/21 01:06 04/22/21 01:06 04/22/21 01:06 Results - Laboratory Findings CBC and BMP: 04/21/21 21:39 04/21/21 21:39 ABG ABG pH 7.358 pH Units (7.350-7.450) 04/21/21 23:23 ABG pCO2 25.4 mm Hg 04/21/21 23:23 ABG pO2 79.4 mm Hg (80.0-90.0) L 04/21/21 23:23 ABG O2 Saturation 95.6 % (95.0-99.0) 04/21/21 23:23 PT/INR, D-dimer PT 15.5 Sec. (12.2-14.9) H 04/21/21 21:39 INR 1.11 (0.87-1.13) 04/21/21 21:39 D-Dimer > 22744 ng/mlDDU (0-234) H 04/21/21 21:39 Abnormal lab findings: Abnormal Labs 04/21/21 04/21/21 04/21/21 21:39 21:39 21:39 Seg Neuts % (Manual) Lymphocytes % (Manual) Seg Neutrophils # Man Lymphocytes # (Manual) PT 15.5 H D-Dimer > 48066 H ABG pO2 ABG HCO3 ABG Base Excess ABG Hemoglobin Oxyhemoglobin Sodium Chloride Carbon Dioxide BUN Glucose 439 H POC Glucose Ferritin 399.4 H Lactate Dehydrogenase 509 H C-Reactive Protein 19.00 H Albumin Ur Specific [place] Urine WBC (Auto) 04/21/21 04/21/21 04/21/21 21:39 21:39 21:39 Seg Neuts % (Manual) 89.0 H Lymphocytes % (Manual) 8.0 L Seg Neutrophils # Man 9.1 H Lymphocytes # (Manual) 0.8 L PT D-Dimer ABG pO2 ABG HCO3 ABG Base Excess ABG Hemoglobin Oxyhemoglobin Sodium 134 L Chloride 93.8 L Carbon Dioxide 16 L BUN 20 H Glucose 430 H 428 H POC Glucose Ferritin Lactate Dehydrogenase 498 H C-Reactive Protein 18.70 H Albumin 3.5 L Ur Specific [place] Urine WBC (Auto) 04/21/21 04/22/21 04/22/21 23:23 01:15 09:16 Seg Neuts % (Manual) Lymphocytes % (Manual) Seg Neutrophils # Man Lymphocytes # (Manual) PT D-Dimer ABG pO2 79.4 L ABG HCO3 14.0 L ABG Base Excess -10.0 L ABG Hemoglobin 11.2 L Oxyhemoglobin 94.4 L Sodium Chloride Carbon Dioxide BUN Glucose POC Glucose 532 H Ferritin Lactate Dehydrogenase C-Reactive Protein Albumin Ur Specific [place] 1.054 H Urine WBC (Auto) 20.0 H
[2021-04-22] MEDS ORDERED: SODIUM CHLORIDE 0.9% 1000 ML 1,000 ML IV ONE ×2 (12:30→14:00)
[2021-04-22 13:30] LABS: Calcium 8.6 mg/dL (8.4-10.2)
[2021-04-22] MEDS ORDERED: REMDESIVIR 200 MG in SODIUM CHLORIDE 0.9% 250ML 250 ML IV ONE (14:24)
--- NOTE | 2021-04-22 14:24 | Consultation ---
History of Present Illness - Reason for Consult Consult date: 04/22/21 COVID-19 Requesting physician: ALYSON CLEMENT - History of Present Illness The patient is a 70-year-old female with hypertension, diabetes, hyperlipidemia, unvaccinated against COVID-19 was admitted with weakness, syncope, shortness of breath. She recently had a known COVID exposure. CT scan of her chest revealed pulmonary embolism, patient was noted to be hypoxic requiring supplemental oxygen. Afebrile. Currently on nasal cannula. Ferritin 399, LDH 498, CRP 18.7. COVID-19 PCR is pending. Review of Systems: reviewed in the chart, unable to obtain, minimize risk of transmission Past History Past Medical History: diabetes, hypertension, hyperlipidemia, other (Fibromyalgia) Medications and Allergies Allergies Allergy/AdvReac Type Severity Reaction Status Date / Time promethazine HCl AdvReac Unknown Verified 12/15/12 09:33 [From Phenergan] Home Medications Medication Instructions Recorded Confirmed Last Taken Type Insulin NPH/Regular [NovoLIN 70/30] 20 unit SQ BID 12/15/12 12/15/12 12/05/12 History Tramadol HCl [Ultram ER] 100 mg PO BID 12/15/12 12/15/12 12/14/12 History lisinopriL [Zestril TAB] 5 mg PO QDAY 12/15/12 12/15/12 12/14/12 History metFORMIN [Glucophage] 500 mg PO BID 12/15/12 12/15/12 12/04/12 History levoFLOXacin [Levaquin TAB] 500 mg PO Q24HR #7 tablet 12/17/12 Unknown Rx Active Meds: Active Medications Acetaminophen (Acetaminophen 325 Mg Tab) 650 mg PO Q4H PRN PRN Reason: Pain MILD(1-3)/Fever >100.5/YUSUF Albuterol (Albuterol 2.5 Mg/3 Ml Nebu) 2.5 mg IH Q4HRT PRN PRN Reason: Shortness Of Breath Albuterol/Ipratropium (Ipratropium/Albuterol Sulfate 3 Ml Ampul.Neb) 1 ampul IH Q6HRT TRAY Last Admin: 04/22/21 09:49 Dose: Not Given Azithromycin (Azithromycin 250 Mg Tab) 500 mg PO QHS TRAY Stop: 04/25/21 22:01 Dexamethasone (Dexamethasone 4 Mg/Ml Vial) 6 mg IV DAILY [facility] Stop: 05/01/21 10:01 Dextrose (Dextrose 50% In Water (25gm) 50 Ml Syringe) 0 ml IV Q30MIN PRN; Protocol PRN Reason: Hypoglycemia Enoxaparin Sodium (Enoxaparin 100 Mg/1 Ml Inj) 100 mg SUB-Q Q12HR [facility]; Protocol Famotidine (Famotidine 20 Mg Tab) 20 mg PO BID [facility] Hydralazine HCl (Hydralazine 20 Mg/1 Ml Inj) 10 mg IV Q6H PRN PRN Reason: Blood Pressure Hydromorphone HCl (Hydromorphone 1 Mg/1 Ml Inj) 0.5 mg IV Q3H PRN PRN Reason: Pain , Severe (7-10) Ceftriaxone Sodium (Rocephin/Ns 2 Gm/100 Ml) 2 gm in 100 mls @ 200 mls/hr IV Q24HR@2200 [facility]; Protocol Stop: 04/25/21 22:29 Insulin Human Regular 100 (units/ Sodium Chloride) 100 mls @ 1 mls/hr IV TITR S ; Protocol Potassium Chloride (Kcl 10meq/100ml) 10 meq in 100 mls @ 100 mls/hr IV Q1H [facility] Stop: 04/22/21 16:59 Potassium Chloride (Kcl 20meq/100ml) 20 meq in 100 mls @ 100 mls/hr IV Q1H [facility] Stop: 04/22/21 14:59 Potassium Chloride (Kcl 10meq/100ml) 10 meq in 100 mls @ 100 mls/hr IV Q1H [facility] Stop: 04/22/21 18:59 Potassium Chloride (Kcl 20meq/100ml) 20 meq in 100 mls @ 100 mls/hr IV Q1H [facility] Stop: 04/22/21 15:59 Sodium Chloride (Nacl 0.9% 1000 Ml) 1,000 mls @ 999 mls/hr IV BOLUS ONE Stop: 04/22/21 15:00 Insulin Human Lispro (Insulin Lispro 100 Unit/Ml) 0 unit SUB-Q ACHS [facility]; Protocol Last Admin: 04/22/21 10:02 Dose: 8 unit Lisinopril (Lisinopril 5 Mg Tab) 5 mg PO QDAY [facility] Metformin HCl (Metformin 500 Mg Tab) 500 mg PO BIDDIAB [facility] Last Admin: 04/22/21 09:08 Dose: Not Given Morphine Sulfate (Morphine 2 Mg/1 Ml Inj) 2 mg IV Q4H PRN PRN Reason: Pain, Moderate (4-6) Ondansetron HCl (Ondansetron 4 Mg/2 Ml Inj) 4 mg IV Q8H PRN PRN Reason: Nausea And Vomiting Sodium Chloride (Sodium Chloride 0.9% 10 Ml Flush Syringe) 10 ml IV BID TRAY Sodium Chloride (Sodium Chloride 0.9% 10 Ml Flush Syringe) 10 ml IV PRN PRN PRN Reason: LINE FLUSH Physical Examination - Physical Exam Narrative exam: Physical Exam (reviewed in chart to minimize risk of transmission) Constitutional: deferred Head, Ears, Nose: deferred Eyes: deferred Neck: deferred Oral: deferred Cardiovascular: deferred Respiratory: deferred GI: deferred Musculoskeletal: deferred Skin: deferred Hem/Lymphatic: deferred Psych: deferred Neurological: deferred - Constitutional Vitals: Vital Signs Temp Pulse Resp BP Pulse Ox 97.9 F 87 20 145/67 98 04/22/21 05:00 04/22/21 05:00 04/22/21 05:00 04/22/21 05:00 04/22/21 05:00 Temperature -Last 24 Hours Temperature 97.9 F Temperature 97.9 F Results - Labs CBC & Chem 7: 04/21/21 21:39 04/22/21 13:05 Labs: Abnormal lab results 04/21/21 04/21/21 04/21/21 Range/Units 21:39 21:39 21:39 Seg Neuts % (Manual) (40.0-70.0) % Lymphocytes % (Manual) (13.4-35.0) % Seg Neutrophils # Man (1.8-7.7) K/mm3 Lymphocytes # (Manual) (1.2-5.4) K/mm3 PT 15.5 H (12.2-14.9) Sec. D-Dimer > 36094 H (0-234) ng/mlDDU ABG pO2 (80.0-90.0) mm Hg ABG HCO3 (20.0-26.0) mmol/L ABG Base Excess (-2.0-3.0) mmol/L ABG Hemoglobin (12.0-16.0) gm/dl Oxyhemoglobin (95.0-99.0) % Sodium (137-145) mmol/L Chloride (98-107) mmol/L Carbon Dioxide (22-30) mmol/L BUN (7-17) mg/dL Glucose 439 H (65-100) mg/dL POC Glucose (70-105) mg/dL Hemoglobin A1c (4-6) % Ferritin 399.4 H (10.0-200.0) ng/mL Lactate Dehydrogenase 509 H (91-180) units/L C-Reactive Protein 19.00 H (0.00-1.30) mg/dL Albumin (3.9-5) g/dL Ur Specific [place] (1.003-1.030) Urine WBC (Auto) (0.0-6.0) /HPF 04/21/21 04/21/21 04/21/21 Range/Units 21:39 21:39 21:39 Seg Neuts % (Manual) 89.0 H (40.0-70.0) % Lymphocytes % (Manual) 8.0 L (13.4-35.0) % Seg Neutrophils # Man 9.1 H (1.8-7.7) K/mm3 Lymphocytes # (Manual) 0.8 L (1.2-5.4) K/mm3 PT (12.2-14.9) Sec. D-Dimer (0-234) ng/mlDDU ABG pO2 (80.0-90.0) mm Hg ABG HCO3 (20.0-26.0) mmol/L ABG Base Excess (-2.0-3.0) mmol/L ABG Hemoglobin (12.0-16.0) gm/dl Oxyhemoglobin (95.0-99.0) % Sodium 134 L (137-145) mmol/L Chloride 93.8 L (98-107) mmol/L Carbon Dioxide 16 L (22-30) mmol/L BUN 20 H (7-17) mg/dL Glucose 430 H 428 H (65-100) mg/dL POC Glucose (70-105) mg/dL Hemoglobin A1c (4-6) % Ferritin (10.0-200.0) ng/mL Lactate Dehydrogenase 498 H (91-180) units/L C-Reactive Protein 18.70 H (0.00-1.30) mg/dL Albumin 3.5 L (3.9-5) g/dL Ur Specific [place] (1.003-1.030) Urine WBC (Auto) (0.0-6.0) /HPF 04/21/21 04/22/21 04/22/21 Range/Units 23:23 01:15 09:16 Seg Neuts % (Manual) (40.0-70.0) % Lymphocytes % (Manual) (13.4-35.0) % Seg Neutrophils # Man (1.8-7.7) K/mm3 Lymphocytes # (Manual) (1.2-5.4) K/mm3 PT (12.2-14.9) Sec. D-Dimer (0-234) ng/mlDDU ABG pO2 79.4 L (80.0-90.0) mm Hg ABG HCO3 14.0 L (20.0-26.0) mmol/L ABG Base Excess -10.0 L (-2.0-3.0) mmol/L ABG Hemoglobin 11.2 L (12.0-16.0) gm/dl Oxyhemoglobin 94.4 L (95.0-99.0) % Sodium (137-145) mmol/L Chloride (98-107) mmol/L Carbon Dioxide (22-30) mmol/L BUN (7-17) mg/dL Glucose (65-100) mg/dL POC Glucose 532 H (70-105) mg/dL Hemoglobin A1c (4-6) % Ferritin (10.0-200.0) ng/mL Lactate Dehydrogenase (91-180) units/L C-Reactive Protein (0.00-1.30) mg/dL Albumin (3.9-5) g/dL Ur Specific [place] 1.054 H (1.003-1.030) Urine WBC (Auto) 20.0 H (0.0-6.0) /HPF 04/22/21 04/22/21 04/22/21 Range/Units 12:07 13:05 13:05 Seg Neuts % (Manual) (40.0-70.0) % Lymphocytes % (Manual) (13.4-35.0) % Seg Neutrophils # Man (1.8-7.7) K/mm3 Lymphocytes # (Manual) (1.2-5.4) K/mm3 PT (12.2-14.9) Sec. D-Dimer (0-234) ng/mlDDU ABG pO2 (80.0-90.0) mm Hg ABG HCO3 (20.0-26.0) mmol/L ABG Base Excess (-2.0-3.0) mmol/L ABG Hemoglobin (12.0-16.0) gm/dl Oxyhemoglobin (95.0-99.0) % Sodium 132 L (137-145) mmol/L Chloride 92.7 L (98-107) mmol/L Carbon Dioxide 8 L* D (22-30) mmol/L BUN 28 H (7-17) mg/dL Glucose 624 H* (65-100) mg/dL POC Glucose > 600 H (70-105) mg/dL Hemoglobin A1c 9.7 H (4-6) % Ferritin (10.0-200.0) ng/mL Lactate Dehydrogenase (91-180) units/L C-Reactive Protein (0.00-1.30) mg/dL Albumin (3.9-5) g/dL Ur Specific [place] (1.003-1.030) Urine WBC (Auto) (0.0-6.0) /HPF - Imaging and Cardiology Chest x-ray: report reviewed, image reviewed (b/l pna) CT scan - chest: report reviewed Assessment and Plan Cultures: SARS CoV2 PCR: Pending 04/21/2021 blood culture: In process A/P: 70-year-old female with hypertension, diabetes, hyperlipidemia, unvaccinated against COVID-19 was admitted with weakness, syncope, shortness of breath: #Bilateral pneumonia: High suspicion for COVID-19. Elevated inflammatory markers. Procalcitonin 0.08. #Acute pulmonary embolism: On anticoagulation. #Acute hypoxic respiratory failure: On nasal cannula. Likely secondary to above #Diabetes, uncontrolled #Obesity Recs: -IV/PO Dexamethasone x 10 days -IV remdesivir x 5 days -if requiring HFNC >30 L/min, CRP >7.5, candidate for Actemra (depending on availability) -Anticoagulation for PE -procalcitonin is low, abx not needed -trend ferritin, d-dimer, CRP every 2-3 days Baldomero Hong MD, FACP, [facility] ([facility] O: [phone] F: [phone]
[2021-04-22 15:43] LABS: Albumin 3.2 g/dL (3.9-5)
[2021-04-22] MEDS: INSULIN REGULAR, HUMAN 100 UNITS in SODIUM CHLORIDE 0.9% 99 ML IV SCH (16:30)
--- NOTE | 2021-04-22 16:33 | Event Note ---
Date: 04/22/21 The patient was evaluated this morning and found to be hemodynamically stable. She was saturating at 94% on nonrebreather 15L. The patient was found to be COVID-19 negative. As a result, remdesivir and steroids were discontinued. The patient was restarted on IV azithromycin 500mg daily and ceftriaxone 2g daily for presumed community acquired pneumonia. The patient was also found to have a poc glucose >600 x2. This prompted the initiation of DKA protocol.
[2021-04-22] MEDS: LISINOPRIL 5 MG TAB PO SCH (16:39)
[2021-04-22] MEDS: FAMOTIDINE 20 MG TAB PO SCH (16:39)
--- NOTE | 2021-04-22 17:40 | Event Note ---
Date: 04/22/21 Came bye to see patient in consult GWEN ERICKSON-19 unfortunately she is now in DKA on IV insulin and needs ICU admission. She is hemodynamically stable, A&O X 3 and I have discussed care plan with attending
[2021-04-22 18:33] LABS: Calcium 8.7 mg/dL (8.4-10.2)
[2021-04-22] MEDS ORDERED: SODIUM CHLORIDE 0.9% 50 ML IVPB IV SCH (21:00)
[2021-04-22] MEDS ORDERED: AZITHROMYCIN 250 MG TAB PO SCH (22:00)
[2021-04-22] MEDS ORDERED: cefTRIAXone/NS 2 GM/100 ML 2 GM/100 ML BAG IV SCH (22:00)
[2021-04-22] MEDS: ENOXAPARIN 100 MG/1 ML INJ SUB-Q SCH (22:58)
[2021-04-22 23:47] LABS: Blood Urea Nitrogen 24 mg/dL (7-17); Calcium 8.6 mg/dL (8.4-10.2); Hemolysis Index 0
[2021-04-22 23:48] LABS: BUN/Creatinine Ratio 34
[2021-04-23] MEDS ORDERED: cefTRIAXone/NS 2 GM/100 ML 2 GM/100 ML BAG IV SCH (02:30)
[2021-04-23] MEDS ORDERED: AZITHROMYCIN/NS 500 MG/250 ML 500 MG/250 ML BAG IV SCH (02:30)
[2021-04-23] MEDS: IPRATROPIUM/ALBUTEROL SULFATE 3 ML AMPUL.NEB IH SCH ×4 (04:42→20:06)
[2021-04-23 05:59] LABS: Hematocrit 35.6 % (30.3-42.9); Hemoglobin 11.1 gm/dl (10.1-14.3); Mean Corpuscular HGB Conc 31 % (30-34); Mean Corpuscular Volume 88 fl (79-97); Platelet Count 274 K/mm3 (140-440); Red Blood Count 4.05 M/mm3 (3.65-5.03); Red Cell Distribution Width 13.7 % (13.2-15.2)
[2021-04-23 06:20] LABS: Alanine Aminotransferase 14 units/L (7-56); Albumin 3.2 g/dL (3.9-5); Blood Urea Nitrogen 23 mg/dL (7-17); Calcium 8.9 mg/dL (8.4-10.2); Hemolysis Index 3
[2021-04-23 06:22] LABS: BUN/Creatinine Ratio 38
[2021-04-23] MEDS: POTASSIUM CHLORIDE 10 MEQ 10 MEQ/100 ML BAG IV SCH ×4 (07:51→07:53)
[2021-04-23] MEDS: POTASSIUM CHLORIDE 20 MEQ 20 MEQ/100 ML BAG IV SCH ×2 (07:53)
[2021-04-23] MEDS: FAMOTIDINE 20 MG TAB PO SCH ×3 (07:54→23:37)
[2021-04-23] MEDS: INSULIN REGULAR, HUMAN 100 UNITS in SODIUM CHLORIDE 0.9% 99 ML IV SCH (08:51)
[2021-04-23] MEDS: INSULIN LISPRO 100 UNIT/ML SUB-Q SCH ×4 (11:35→23:02)
--- NOTE | 2021-04-23 13:20 | Progress Note ---
Assessment and Plan Assessment and plan: #Acute respiratory failure with hypoxia Multifactorial between pulmonary embolism and suspected COVID-19 pneumonia -COVID PCR re ordered -CTA chest demonstrates pulmonary embolism, patchy multifocal infiltrates noted. Currently on supplemental oxygen nasal cannula 4 L/min PCCM consulted ID consulted #Pulmonary embolism -No prior history of VTE. Possibly due to underlying COVID disease process -Anticoagulation with therapeutic Lovenox -Supplemental oxygen #Bilateral Pneumonia - CTA findings as above - suspect viral etiology with high suspicion for covid - hold off on abx for now due to low procal - supplemental O2 as above - may restart decadron and consider experimental therapies if repeat covid is negative as well. - pulm consulted - ID consulted #Severe sepsis - bcx/ucx/scx - empiric abx for cap coverage d/c due to normal procal. - decadron d/c, will resume if repeat covid + - ID consulted on admission #Person under investigation for COVID 19 PNA -elevated inflammatory markers -CTA chest highly suspicious for findings consistent with COVID-19 pneumonia COVID-19 RT-PCR negative on 04/22, suspect this was a false negative. repeat covid 19 rt pcr ordered #Diabetic ketoacidosis -Likely precipitated by Decadron/underlying infection - gap: 17 -Currently on insulin gtt. - Fluids with d5-1/2 NS - serial bmp q4hr. - CCM consult #Type 2 diabetes with hyperglycemia -home regimen: 20 units insulin N qAM, INsulin R 10 units with meals +SSI. patient makes adjustments based on CGM readings - A1c: 9.7 - management as above. May need adjustment of PM insulin due to elevated BG in evenings. - can recommend optimization of home regimen on discharge. #Syncope -Could be explained by pulmonary embolism, initial cardiac troponin 0.01 -echocardiogram pending -Cardiology was consulted on admission Dispo: ICU. Can likely be stepped down to floor once anion gap closed and BG under better controlled. The high probability of a clinically significant, sudden or life threatening d eterioration of the [multi] system(s) required my full and direct attention, intervention and personal management. The aggregate critical care time was [60] minutes. This time is in addition to time spent performing reported procedures but includes the following: [x] Data Review and interpretation [x] Patient assessment and monitoring of vital signs [x] Documentation [x] Medication orders and management History Interval history: Patient is resting comfortably on encounter. She has no new complaints today. She states that she has been a longstanding diabetic and has been taking insulin N 20 units in the morning as well as insulin R 10 units with meals as well as sliding scale. She has a CGM implant and her device showed fasting AM sugars in 150's typically with higher readings in the evening in 250's. Hospitalist Physical - Physical exam Narrative exam: Physical Exam: VITAL SIGNS: Reviewed. GENERAL: The patient appears normally developed, Vital signs as documented. NAD, on 4l/min nc HEAD: No signs of head trauma. EYES: Pupils are equal. Extraocular motions intact. EARS: Hearing grossly intact. MOUTH: Oropharynx is normal. NECK: No adenopathy, no JVD. CHEST: bl rhonchi CARDIAC: Regular rate and rhythm. S1 and S2, without murmurs, gallops, or rubs. VASCULAR: No Edema. Peripheral pulses normal and equal in all extremities. ABDOMEN: Soft, non tender and non distended. No rebound or guarding, and no masses palpated. Bowel Sounds normal. MUSCULOSKELETAL: Good range of motion of all major joints. Extremities without clubbing, cyanosis or edema. NEUROLOGIC EXAM: Alert and oriented x 4. no focal sensory or strength deficits. PSYCHIATRIC: Mood normal. SKIN: Left arm cgm implant. detail exam as documented in skin assessment - Constitutional Vitals: Temp Pulse Resp BP Pulse Ox 98.7 F 96 H 22 153/59 98 04/23/21 00:05 04/23/21 11:00 04/23/21 11:28 04/23/21 11:16 04/23/21 11:28 General appearance: Present: no acute distress, well-nourished HEART Score - HEART Score Troponin: Troponin T < 0.010 ng/mL (0.00-0.029) 04/21/21 21:39 Results - Labs CBC & Chem 7: 04/23/21 05:18 04/23/21 05:18 Labs: Laboratory Last Values WBC 10.6 K/mm3 (4.5-11.0) 04/23/21 05:18 RBC 4.05 M/mm3 (3.65-5.03) 04/23/21 05:18 Hgb 11.1 gm/dl (10.1-14.3) 04/23/21 05:18 Hct 35.6 % (30.3-42.9) 04/23/21 05:18 MCV 88 fl (79-97) 04/23/21 05:18 MCH 27 pg (28-32) L 04/23/21 05:18 MCHC 31 % (30-34) 04/23/21 05:18 RDW 13.7 % (13.2-15.2) 04/23/21 05:18 Plt Count 274 K/mm3 (140-440) 04/23/21 05:18 Add Manual Diff Complete 04/21/21 21:39 Total Counted 100 04/21/21 21:39 Seg Neutrophils % [place] [employer] 04/23/21 05:18 Seg Neuts % (Manual) 89.0 % (40.0-70.0) H 04/21/21 21:39 Band Neutrophils % 0 % 04/21/21 21:39 Lymphocytes % (Manual) 8.0 % (13.4-35.0) L 04/21/21 21:39 Reactive Lymphs % (Man) 0 % 04/21/21 21:39 Monocytes % (Manual) 3.0 % (0.0-7.3) 04/21/21 21:39 Eosinophils % (Manual) 0 % (0.0-4.3) 04/21/21 21:39 Basophils % (Manual) 0 % (0.0-1.8) 04/21/21 21:39 Metamyelocytes % 0 % 04/21/21 21:39 Myelocytes % 0 % 04/21/21 21:39 Promyelocytes % 0 % 04/21/21 21:39 Blast Cells % 0 % 04/21/21 21:39 Nucleated RBC % Not Reportable 04/21/21 21:39 Seg Neutrophils # Man 9.1 K/mm3 (1.8-7.7) H 04/21/21 21:39 Band Neutrophils # 0.0 K/mm3 04/21/21 21:39 Lymphocytes # (Manual) 0.8 K/mm3 (1.2-5.4) L 04/21/21 21:39 Abs React Lymphs (Man) 0.0 K/mm3 04/21/21 21:39 Monocytes # (Manual) 0.3 K/mm3 (0.0-0.8) 04/21/21 21:39 Eosinophils # (Manual) 0.0 K/mm3 (0.0-0.4) 04/21/21 21:39 Basophils # (Manual) 0.0 K/mm3 (0.0-0.1) 04/21/21 21:39 Metamyelocytes # 0.0 K/mm3 04/21/21 21:39 Myelocytes # 0.0 K/mm3 04/21/21 21:39 Promyelocytes # 0.0 K/mm3 04/21/21 21:39 Blast Cells # 0.0 K/mm3 04/21/21 21:39 WBC Morphology Not Reportable 04/21/21 21:39 Hypersegmented Neuts Not Reportable 04/21/21 21:39 Hyposegmented Neuts Not Reportable 04/21/21 21:39 Hypogranular Neuts Not Reportable 04/21/21 21:39 Smudge Cells Not Reportable 04/21/21 21:39 Toxic Granulation Not Reportable 04/21/21 21:39 Toxic Vacuolation Not Reportable 04/21/21 21:39 Dohle Bodies Not Reportable 04/21/21 21:39 Pelger-Huet Anomaly Not Reportable 04/21/21 21:39 Florentino Rods Not Reportable 04/21/21 21:39 Platelet Estimate Not Reportable 04/21/21 21:39 Clumped Platelets Not Reportable 04/21/21 21:39 Plt Clumps, EDTA Not Reportable 04/21/21 21:39 Large Platelets Not Reportable 04/21/21 21:39 Giant Platelets Not Reportable 04/21/21 21:39 Platelet Satelliting Not Reportable 04/21/21 21:39 Plt Morphology Comment Not Reportable 04/21/21 21:39 RBC Morphology Not Reportable 04/21/21 21:39 Dimorphic RBCs Not Reportable 04/21/21 21:39 Polychromasia Not Reportable 04/21/21 21:39 Hypochromasia Not Reportable 04/21/21 21:39 Poikilocytosis Not Reportable 04/21/21 21:39 Anisocytosis 1+ 04/21/21 21:39 Microcytosis Not Reportable 04/21/21 21:39 Macrocytosis Not Reportable 04/21/21 21:39 Spherocytes Not Reportable 04/21/21 21:39 Pappenheimer Bodies Not Reportable 04/21/21 21:39 Sickle Cells Not Reportable 04/21/21 21:39 Target Cells Not Reportable 04/21/21 21:39 Tear Drop Cells Not Reportable 04/21/21 21:39 Ovalocytes Not Reportable 04/21/21 21:39 Helmet Cells Not Reportable 04/21/21 21:39 [place] Bodies Not Reportable 04/21/21 21:39 [place] Rings Not Reportable 04/21/21 21:39 [place] Cells Not Reportable 04/21/21 21:39 Bite Cells Not Reportable 04/21/21 21:39 Crenated Cell Not Reportable 04/21/21 21:39 Elliptocytes Not Reportable 04/21/21 21:39 Acanthocytes (Spur) Not Reportable 04/21/21 21:39 Rouleaux Not Reportable 04/21/21 21:39 Hemoglobin C Crystals Not Reportable 04/21/21 21:39 Schistocytes Not Reportable 04/21/21 21:39 Malaria parasites Not Reportable 04/21/21 21:39 Alex Bodies Not Reportable 04/21/21 21:39 Hem Pathologist Commnt No 04/21/21 21:39 PT 15.5 Sec. (12.2-14.9) H 04/21/21 21:39 INR 1.11 (0.87-1.13) 04/21/21 21:39 D-Dimer > 40178 ng/mlDDU (0-234) H 04/21/21 21:39 ABG pH 7.358 pH Units (7.350-7.450) 04/21/21 23: ABG pCO2 25.4 mm Hg 04/21/21 23: ABG pO2 79.4 mm Hg (80.0-90.0) L 04/21/21 23: ABG HCO3 14.0 mmol/L (20.0-26.0) L 04/21/21 23: ABG O2 Saturation 95.6 % (95.0-99.0) 04/21/21 23: ABG O2 Content 14.9 (0.0-44) 04/21/21 23: ABG Base Excess -10.0 mmol/L (-2.0-3.0) L 04/21/21 23:23 ABG Hemoglobin 11.2 gm/dl (12.0-16.0) L 04/21/21 23:23 ABG Carboxyhemoglobin 0.8 % (0.0-5.0) 04/21/21 23:23 ABG Methemoglobin 0.4 % (0.0-1.5) 04/21/21 23:23 Oxyhemoglobin 94.4 % (95.0-99.0) L 04/21/21 23:23 FiO2 36 % 04/21/21 23:23 Sodium 141 mmol/L (137-145) 04/23/21 05:18 Potassium 4.6 mmol/L (3.6-5.0) 04/23/21 05:18 Chloride 106.6 mmol/L (98-107) 04/23/21 05:18 Carbon Dioxide 17 mmol/L (22-30) L 04/23/21 05:18 Anion Gap 22 mmol/L 04/23/21 05:18 BUN 23 mg/dL (7-17) H 04/23/21 05:18 Creatinine 0.6 mg/dL (0.6-1.2) 04/23/21 05:18 Estimated GFR > 60 ml/min 04/23/21 05:18 BUN/Creatinine Ratio 38 % 04/23/21 05:18 Glucose 240 mg/dL (65-100) H 04/23/21 05:18 POC Glucose 324 mg/dL (70-105) H 04/23/21 11:26 Hemoglobin A1c 9.7 % (4-6) H 04/22/21 13:05 Lactic Acid 1.80 mmol/L (0.7-2.0) 04/21/21 21:39 Calcium 8.9 mg/dL (8.4-10.2) 04/23/21 05:18 Phosphorus 4.20 mg/dL (2.5-4.5) 04/22/21 13:05 Magnesium 1.90 mg/dL (1.7-2.3) 04/22/21 13:05 Ferritin 399.4 ng/mL (10.0-200.0) H 04/21/21 21:39 Total Bilirubin 0.40 mg/dL (0.1-1.2) 04/23/21 05:18 AST 16 units/L (5-40) 04/23/21 05:18 ALT 14 units/L (7-56) 04/23/21 05:18 Alkaline Phosphatase 101 units/L (35-129) 04/23/21 05:18 Lactate Dehydrogenase 498 units/L (91-180) H 04/21/21 21:39 Lactate Dehydrogenase 509 units/L (91-180) H 04/21/21 21:39 Troponin T < 0.010 ng/mL (0.00-0.029) 04/21/21 21:39 C-Reactive Protein 18.70 mg/dL (0.00-1.30) H 04/21/21 21:39 C-Reactive Protein 19.00 mg/dL (0.00-1.30) H 04/21/21 21:39 Total Protein 6.6 g/dL (6.3-8.2) 04/23/21 05:18 Albumin 3.2 g/dL (3.9-5) L 04/23/21 05:18 Albumin/Globulin Ratio 0.9 % 04/23/21 05:18 Procalcitonin 0.08 ng/mL (<0.15) 04/21/21 21:39 Urine Color Yellow (Yellow) 04/22/21 01:15 Urine Turbidity Clear (Clear) 04/22/21 01:15 Urine pH 5.0 (5.0-7.0) 04/22/21 01:15 Ur Specific [place] 1.054 (1.003-1.030) H 04/22/21 01:15 Urine Protein 30 mg/dl mg/dL (Negative) 04/22/21 01:15 Urine Glucose (UA) >=500 mg/dL (Negative) 04/22/21 01:15 Urine Ketones 80 mg/dL (Negative) 04/22/21 01:15 Urine Blood Neg (Negative) 04/22/21 01:15 Urine Nitrite Neg (Negative) 04/22/21 01:15 Ur Reducing Substances Not Reportable 04/22/21 01:15 Urine Bilirubin Neg (Negative) 04/22/21 01:15 Urine Ictotest Not Reportable 04/22/21 01:15 Urine Urobilinogen < 2.0 mg/dL (<2.0) 04/22/21 01:15 Ur Leukocyte Esterase Sm (Negative) 04/22/21 01:15 Urine WBC (Auto) 20.0 /HPF (0.0-6.0) H 04/22/21 01:15 Urine RBC (Auto) 4.0 /HPF (0.0-6.0) 04/22/21 01:15 U Epithel Cells (Auto) 2.0 /HPF (0-13.0) 04/22/21 01:15 Urine Bacteria (Auto) 3+ /HPF (Negative) 04/22/21 01:15 Urine Yeast (Budding) Few /HPF 04/22/21 01:15 Coronavirus (PCR) Negative (Negative) 04/22/21 08:00 Microbiology: Microbiology 04/21/21 21:39 Peripheral/Venous Blood Culture - Preliminary NO GROWTH AFTER 24 HOURS 04/21/21 21:54 Peripheral/Venous Blood Culture - Preliminary NO GROWTH AFTER 24 HOURS Active Medications - Current Medications Current Medications: Generic Name Dose Route Start Last Admin Trade Name Freq PRN Reason Stop Dose Admin Acetaminophen 650 mg 04/22/21 01:39 Acetaminophen 325 Mg Tab PO Q4H PRN Pain MILD(1-3)/Fever >100.5/YUSUF Albuterol 2.5 mg 04/22/21 01:39 Albuterol 2.5 Mg/3 Ml Nebu IH Q4HRT PRN Shortness Of Breath Albuterol/Ipratropium 1 ampul 04/22/21 02:00 04/23/21 10:00 Ipratropium/Albuterol Sulfate 3 Ml Ampul.Neb IH 1 ampul Q6HRT TRAY Administration Dextrose 0 ml 04/22/21 01:39 Dextrose 50% In Water (25gm) 50 Ml Syringe IV Q30MIN PRN Hypoglycemia Protocol Enoxaparin Sodium 90 mg 04/22/21 20:00 04/22/21 22:58 Enoxaparin 100 Mg/1 Ml Inj SUB-Q 90 mg Q12H TRAY Administration Protocol Famotidine 20 mg 04/22/21 10:00 04/23/21 07:54 Famotidine 20 Mg Tab PO Not Given BID TRAY Hydralazine HCl 10 mg 04/22/21 01:42 Hydralazine 20 Mg/1 Ml Inj IV Q6H PRN Blood Pressure Hydromorphone HCl 0.5 mg 04/22/21 01:39 Hydromorphone 1 Mg/1 Ml Inj IV Q3H PRN Pain , Severe (7-10) Insulin Human Regular 100 100 mls @ 1 mls/hr 04/22/21 14:00 04/23/21 08:51 units/ Sodium Chloride IV 6 units/hr TITR TRAY 6 mls/hr Administration Protocol 1 UNITS/HR Insulin Human Lispro 0 unit 04/22/21 07:30 04/23/21 11:35 Insulin Lispro 100 Unit/Ml SUB-Q Not Given ACHS TRAY Protocol Lisinopril 5 mg 04/22/21 10:00 04/22/21 16:39 Lisinopril 5 Mg Tab PO 5 mg QDAY TRAY Administration Morphine Sulfate 2 mg 04/22/21 01:39 Morphine 2 Mg/1 Ml Inj IV Q4H PRN Pain, Moderate (4-6) Ondansetron HCl 4 mg 04/22/21 01:39 Ondansetron 4 Mg/2 Ml Inj IV Q8H PRN Nausea And Vomiting Sodium Chloride 10 ml 04/22/21 10:00 04/23/21 07:54 Sodium Chloride 0.9% 10 Ml Flush Syringe IV Not Given BID TRAY Sodium Chloride 10 ml 04/22/21 01:39 Sodium Chloride 0.9% 10 Ml Flush Syringe IV PRN PRN LINE FLUSH Nutrition/Malnutrition Assess - Dietary Evaluation Nutrition/Malnutrition Findings: Nutrition Notes Start: 04/22/21 08:44 Freq: Status: Active Protocol: Document 04/22/21 08:44 JOSE (Rec: 04/22/21 08:48 JOSE [id number]) Nutrition Notes Need for Assessment generated from: MD Order,Education Initial or Follow up Brief Note Current Diet Cardiac/Consistent Carbohydrates Diet (since B ). Height 5 ft 6 in Weight 90.718 kg [place] Body Weight (kg) 59.09 BMI 32.3 Weight change and time frame None reported at admission. Weight Status Obese Subjective/Other Information RD consult for Nutrition Education. Pt still on ED, not a candidate for Nutrition Education at the time, will assess feasibility on F/U. Percent of energy/protein needs met: Prescribed Cardiac/Consistent Carbohydrates Diet provides for energy/protein needs (1, 977 Kcal/86 g) during LOS. Nutrition Intervention Follow-Up By: 04/29/21 Additional Comments Nutrition education will be provided on F/U if feasible. Continue monitoring food tolerance, %PO intake of meals , and BM.
[2021-04-23] MEDS: LISINOPRIL 5 MG TAB PO SCH (13:28)
[2021-04-23] MEDS: ENOXAPARIN 100 MG/1 ML INJ SUB-Q SCH ×2 (13:29→23:35)
[2021-04-23] MEDS: metFORMIN 500 MG TAB PO SCH (13:58)
--- NOTE | 2021-04-23 14:42 | Progress Note ---
Assessment and Plan Cultures: SARS CoV2 PCR: negative 04/21/2021 blood culture: no growth A/P: 70-year-old female with hypertension, diabetes, hyperlipidemia, unvaccinated against COVID-19 was admitted with weakness, syncope, shortness of breath: #Bilateral pneumonia: High suspicion for COVID-19. Elevated inflammatory markers. Procalcitonin 0.08. #Acute pulmonary embolism: On anticoagulation. #Acute hypoxic respiratory failure: On nasal cannula. Likely secondary to above #Diabetes, uncontrolled, DKA #Obesity Recs: -given high suspicion, repeat COVID-19 PCR -Anticoagulation for PE -procalcitonin is low, if COVID PCR comes back positive, d/c abx and restart steroids + remdesivir. Baldomero Hong MD, FACP, [facility] ([facility]) O: [phone] F: [phone] Subjective Date of service: 04/23/21 Interval history: No fever. COVID-19 PCR came back negative. On 2 L nasal cannula. Objective - Exam Narrative Exam: Physical Exam (reviewed in chart to minimize risk of transmission) Constitutional: deferred Head, Ears, Nose: deferred Eyes: deferred Neck: deferred Oral: deferred Cardiovascular: deferred Respiratory: deferred GI: deferred Musculoskeletal: deferred Skin: deferred Hem/Lymphatic: deferred Psych: deferred Neurological: deferred - Constitutional Vitals: Vital Signs Temp Pulse Resp BP Pulse Ox 98.4 F 96 H 24 162/68 97 04/23/21 13:26 04/23/21 13:28 04/23/21 13:26 04/23/21 13:28 04/23/21 13:26 Temperature -Last 24 Hours Temperature 98.4 F Temperature 98.7 F Temperature 98.1 F - Labs CBC & Chem 7: 04/23/21 05:18 04/23/21 05:18 Labs: Abnormal lab results 04/22/21 04/22/21 04/22/21 Range/Units 15:01 17:59 20:10 MCH (28-32) pg Sodium 131 L 136 L (137-145) mmol/L Chloride 95.8 L (98-107) mmol/L Carbon Dioxide 9 L* 11 L (22-30) mmol/L BUN 27 H 24 H (7-17) mg/dL Glucose 558 H* 435 H (65-100) mg/dL POC Glucose 317 H (70-105) mg/dL Albumin 3.2 L (3.9-5) g/dL 04/22/21 04/23/21 04/23/21 Range/Units 23:16 02:32 05:18 MCH 27 L (28-32) pg Sodium (137-145) mmol/L Chloride (98-107) mmol/L Carbon Dioxide 18 L D (22-30) mmol/L BUN 24 H (7-17) mg/dL Glucose 252 H (65-100) mg/dL POC Glucose 131 H (70-105) mg/dL Albumin (3.9-5) g/dL 04/23/21 04/23/21 04/23/21 Range/Units 05:18 06:18 07:38 MCH (28-32) pg Sodium (137-145) mmol/L Chloride (98-107) mmol/L Carbon Dioxide 17 L (22-30) mmol/L BUN 23 H (7-17) mg/dL Glucose 240 H (65-100) mg/dL POC Glucose 285 H 325 H (70-105) mg/dL Albumin 3.2 L (3.9-5) g/dL 04/23/21 04/23/21 04/23/21 Range/Units 09:51 11:26 13:23 MCH (28-32) pg Sodium (137-145) mmol/L Chloride (98-107) mmol/L Carbon Dioxide (22-30) mmol/L BUN (7-17) mg/dL Glucose (65-100) mg/dL POC Glucose 348 H 324 H 257 H (70-105) mg/dL Albumin (3.9-5) g/dL 04/23/21 Range/Units 14:31 MCH (28-32) pg Sodium (137-145) mmol/L Chloride (98-107) mmol/L Carbon Dioxide (22-30) mmol/L BUN (7-17) mg/dL Glucose (65-100) mg/dL POC Glucose 220 H (70-105) mg/dL Albumin (3.9-5) g/dL
[2021-04-23 15:35] LABS: Basophils % (Manual) 0 % (0.0-1.8); Eosinophils % (Manual) 0 % (0.0-4.3); Platelet Estimate Consistent w Auto; RBC Morphology Normal; Total Cells Counted 100
[2021-04-23] MEDS ORDERED: D5W/0.45% NACL 1,000 ML IV SCH ×3 (16:00)
[2021-04-23 16:08] LABS: Blood Urea Nitrogen 25 mg/dL (7-17); Calcium 8.6 mg/dL (8.4-10.2); Hemolysis Index 2
[2021-04-23 16:10] LABS: BUN/Creatinine Ratio 42
--- NOTE | 2021-04-23 17:51 | Consultation ---
History of Present Illness Consult date: 04/23/21 Requesting physician: CLAY PUENTES Reason for consult: hypoxemia History of present illness: 70 y/o female with acute respiratory failure and DKA. DKA now resolved and on 3 liters NC. Found to have pulmonary embolism, exact etiology unknown. First COVID was negative but a repeat test is pending. Past History Past Medical History: diabetes, hypertension, hyperlipidemia, other (Fibromyalgia) Medications and Allergies Allergies Allergy/AdvReac Type Severity Reaction Status Date / Time promethazine HCl AdvReac Unknown Verified 12/15/12 09:33 [From Phenergan] Home Medications Medication Instructions Recorded Confirmed Last Taken Type Insulin NPH/Regular [NovoLIN 70/30] 20 unit SQ DAILY 12/15/12 04/23/21 12/05/12 History Insulin Regular, Human [HumuLIN R] 10 unit SUB-Q ONCE 04/23/21 04/23/21 Unknown History Insulin Regular, Human [Novolin R See Protocol SQ DAILY 04/23/21 04/23/21 Unknown History Flexpen] Levothyroxine [Synthroid] 125 mcg PO DAILY 04/23/21 04/23/21 Unknown History Losartan [Cozaar] 25 mg PO DAILY 04/23/21 04/23/21 Unknown History Metoclopramide [Reglan TAB] 10 mg PO BID 04/23/21 04/23/21 Unknown History Potassium 99 mg PO DAILY 04/23/21 04/23/21 Unknown History Pravastatin [Pravachol] 40 mg PO QHS 04/23/21 04/23/21 Unknown History amLODIPine [Norvasc] 5 mg PO DAILY 04/23/21 04/23/21 Unknown History Active Meds: Active Medications Acetaminophen (Acetaminophen 325 Mg Tab) 650 mg PO Q4H PRN PRN Reason: Pain MILD(1-3)/Fever >100.5/YUSUF Albuterol (Albuterol 2.5 Mg/3 Ml Nebu) 2.5 mg IH Q4HRT PRN PRN Reason: Shortness Of Breath Albuterol/Ipratropium (Ipratropium/Albuterol Sulfate 3 Ml Ampul.Neb) 1 ampul IH Q6HRT TRAY Last Admin: 04/23/21 15:09 Dose: 1 ampul Dextrose (Dextrose 50% In Water (25gm) 50 Ml Syringe) 0 ml IV Q30MIN PRN; Protocol PRN Reason: Hypoglycemia Enoxaparin Sodium (Enoxaparin 100 Mg/1 Ml Inj) 90 mg SUB-Q Q12H [facility]; Protocol Last Admin: 04/23/21 13:29 Dose: 90 mg Famotidine (Famotidine 20 Mg Tab) 20 mg PO BID [facility] Last Admin: 04/23/21 13:29 Dose: 20 mg Hydralazine HCl (Hydralazine 20 Mg/1 Ml Inj) 10 mg IV Q6H PRN PRN Reason: Blood Pressure Hydromorphone HCl (Hydromorphone 1 Mg/1 Ml Inj) 0.5 mg IV Q3H PRN PRN Reason: Pain , Severe (7-10) Insulin Human Regular 100 (units/ Sodium Chloride) 100 mls @ 1 mls/hr IV TITR [facility]; Protocol Last Titration: 04/23/21 16:19 Dose: 3 units/hr, 3 mls/hr Dextrose/Sodium Chloride (D5/0.45ns) 1,000 mls @ 125 mls/hr IV DIRECT TRAY Last Admin: 04/23/21 15:45 Dose: 125 mls/hr Insulin Human Lispro (Insulin Lispro 100 Unit/Ml) 0 unit SUB-Q ACHS [facility]; Protocol Last Admin: 04/23/21 16:21 Dose: Not Given Lisinopril (Lisinopril 5 Mg Tab) 5 mg PO QDAY [facility] Last Admin: 04/23/21 13:28 Dose: 5 mg Morphine Sulfate (Morphine 2 Mg/1 Ml Inj) 2 mg IV Q4H PRN PRN Reason: Pain, Moderate (4-6) Ondansetron HCl (Ondansetron 4 Mg/2 Ml Inj) 4 mg IV Q8H PRN PRN Reason: Nausea And Vomiting Sodium Chloride (Sodium Chloride 0.9% 10 Ml Flush Syringe) 10 ml IV BID [facility] Last Admin: 04/23/21 13:29 Dose: 10 ml Sodium Chloride (Sodium Chloride 0.9% 10 Ml Flush Syringe) 10 ml IV PRN PRN PRN Reason: LINE FLUSH Review of Systems All systems: negative Physical Examination Vital signs: Vital Signs Temp Pulse Resp BP Pulse Ox 97.9 F 90 20 149/62 98 04/22/21 01:06 04/22/21 01:06 04/22/21 01:06 04/22/21 01:06 04/22/21 01:06 Results - Laboratory Findings CBC and BMP: 04/23/21 05:18 04/23/21 15:27 ABG ABG pH 7.358 pH Units (7.350-7.450) 04/21/21 23:23 ABG pCO2 25.4 mm Hg 04/21/21 23:23 ABG pO2 79.4 mm Hg (80.0-90.0) L 04/21/21 23:23 ABG O2 Saturation 95.6 % (95.0-99.0) 04/21/21 23:23 PT/INR, D-dimer PT 15.5 Sec. (12.2-14.9) H 04/21/21 21:39 INR 1.11 (0.87-1.13) 04/21/21 21:39 D-Dimer > 69007 ng/mlDDU (0-234) H 04/21/21 21:39 Abnormal lab findings: Abnormal Labs 04/21/21 04/21/21 04/21/21 21:39 21:39 21:39 MCH Seg Neuts % (Manual) Lymphocytes % (Manual) Seg Neutrophils # Man Lymphocytes # (Manual) PT 15.5 H D-Dimer > 99336 H ABG pO2 ABG HCO3 ABG Base Excess ABG Hemoglobin Oxyhemoglobin Sodium Chloride Carbon Dioxide BUN Glucose 439 H POC Glucose Hemoglobin A1c Ferritin 399.4 H Lactate Dehydrogenase 509 H C-Reactive Protein 19.00 H Albumin Ur Specific [place] Urine WBC (Auto) 04/21/21 04/21/21 04/21/21 21:39 21:39 21:39 MCH Seg Neuts % (Manual) 89.0 H Lymphocytes % (Manual) 8.0 L Seg Neutrophils # Man 9.1 H Lymphocytes # (Manual) 0.8 L PT D-Dimer ABG pO2 ABG HCO3 ABG Base Excess ABG Hemoglobin Oxyhemoglobin Sodium 134 L Chloride 93.8 L Carbon Dioxide 16 L BUN 20 H Glucose 430 H 428 H POC Glucose Hemoglobin A1c Ferritin Lactate Dehydrogenase 498 H C-Reactive Protein 18.70 H Albumin 3.5 L Ur Specific [place] Urine WBC (Auto) 04/21/21 04/22/21 04/22/21 23:23 01:15 09:16 MCH Seg Neuts % (Manual) Lymphocytes % (Manual) Seg Neutrophils # Man Lymphocytes # (Manual) PT D-Dimer ABG pO2 79.4 L ABG HCO3 14.0 L ABG Base Excess -10.0 L ABG Hemoglobin 11.2 L Oxyhemoglobin 94.4 L Sodium Chloride Carbon Dioxide BUN Glucose POC Glucose 532 H Hemoglobin A1c Ferritin Lactate Dehydrogenase C-Reactive Protein Albumin Ur Specific [place] 1.054 H Urine WBC (Auto) 20.0 H 04/22/21 04/22/21 04/22/21 12:07 13:05 13:05 MCH Seg Neuts % (Manual) Lymphocytes % (Manual) Seg Neutrophils # Man Lymphocytes # (Manual) PT D-Dimer ABG pO2 ABG HCO3 ABG Base Excess ABG Hemoglobin Oxyhemoglobin Sodium 132 L Chloride 92.7 L Carbon Dioxide 8 L* D BUN 28 H Glucose 624 H* POC Glucose > 600 H Hemoglobin A1c 9.7 H Ferritin Lactate Dehydrogenase C-Reactive Protein Albumin Ur Specific [place] Urine WBC (Auto) 04/22/21 04/22/21 04/22/21 15:01 17:59 20:10 MCH Seg Neuts % (Manual) Lymphocytes % (Manual) Seg Neutrophils # Man Lymphocytes # (Manual) PT D-Dimer ABG pO2 ABG HCO3 ABG Base Excess ABG Hemoglobin Oxyhemoglobin Sodium 131 L 136 L Chloride 95.8 L Carbon Dioxide 9 L* 11 L BUN 27 H 24 H Glucose 558 H* 435 H POC Glucose 317 H Hemoglobin A1c Ferritin Lactate Dehydrogenase C-Reactive Protein Albumin 3.2 L Ur Specific [place] Urine WBC (Auto) 04/22/21 04/23/21 04/23/21 23:16 02:32 05:18 MCH 27 L Seg Neuts % (Manual) 99.0 H Lymphocytes % (Manual) 0 L Seg Neutrophils # Man 10.5 H Lymphocytes # (Manual) 0.0 L PT D-Dimer ABG pO2 ABG HCO3 ABG Base Excess ABG Hemoglobin Oxyhemoglobin Sodium Chloride Carbon Dioxide 18 L D BUN 24 H Glucose 252 H POC Glucose 131 H Hemoglobin A1c Ferritin Lactate Dehydrogenase C-Reactive Protein Albumin Ur Specific [place] Urine WBC (Auto) 04/23/21 04/23/21 04/23/21 05:18 06:18 07:38 MCH Seg Neuts % (Manual) Lymphocytes % (Manual) Seg Neutrophils # Man Lymphocytes # (Manual) PT D-Dimer ABG pO2 ABG HCO3 ABG Base Excess ABG Hemoglobin Oxyhemoglobin Sodium Chloride Carbon Dioxide 17 L BUN 23 H Glucose 240 H POC Glucose 285 H 325 H Hemoglobin A1c Ferritin Lactate Dehydrogenase C-Reactive Protein Albumin 3.2 L Ur Specific [place] Urine WBC (Auto) 04/23/21 04/23/21 04/23/21 09:51 11:26 13:23 MCH Seg Neuts % (Manual) Lymphocytes % (Manual) Seg Neutrophils # Man Lymphocytes # (Manual) PT D-Dimer ABG pO2 ABG HCO3 ABG Base Excess ABG Hemoglobin Oxyhemoglobin Sodium Chloride Carbon Dioxide BUN Glucose POC Glucose 348 H 324 H 257 H Hemoglobin A1c Ferritin Lactate Dehydrogenase C-Reactive Protein Albumin Ur Specific [place] Urine WBC (Auto) 04/23/21 04/23/21 04/23/21 14:31 15:27 16:18 MCH Seg Neuts % (Manual) Lymphocytes % (Manual) Seg Neutrophils # Man Lymphocytes # (Manual) PT D-Dimer ABG pO2 ABG HCO3 ABG Base Excess ABG Hemoglobin Oxyhemoglobin Sodium Chloride 107.3 H Carbon Dioxide 20 L BUN 25 H Glucose 214 H POC Glucose 220 H 203 H Hemoglobin A1c Ferritin Lactate Dehydrogenase C-Reactive Protein Albumin Ur Specific [place] Urine WBC (Auto) Assessment and Plan 70 y/o female with acute respiratory failure secondary to pulmonary embolism and DKA resolved. Gap is 20 measured and 16 when calculated. Anticoagulation for PE. If COVID negative needs hypercoag work up. LE dopplers Should be able to downgrade to floor, which one pending COVID testing.
[2021-04-23] MEDS: D5W/0.45% NACL/KCL 20 MEQ 20 MEQ/1,000 ML BAG IV SCH (19:04)
[2021-04-23 19:17] LABS: BUN/Creatinine Ratio 42; Blood Urea Nitrogen 25 mg/dL (7-17); Calcium 8.5 mg/dL (8.4-10.2); Hemolysis Index 1
[2021-04-23] MEDS ORDERED: REMDESIVIR 100 MG in SODIUM CHLORIDE 0.9% 250ML 250 ML IV SCH (21:00)
[2021-04-24 00:27] LABS: Blood Urea Nitrogen 24 mg/dL (7-17); Calcium 8.3 mg/dL (8.4-10.2); Hemolysis Index 3
[2021-04-24 00:29] LABS: BUN/Creatinine Ratio 48
[2021-04-24 05:34] LABS: Alanine Aminotransferase 14 units/L (7-56); Albumin 3.1 g/dL (3.9-5); Blood Urea Nitrogen 22 mg/dL (7-17); Calcium 8.4 mg/dL (8.4-10.2); Hemolysis Index 8
[2021-04-24 05:35] LABS: BUN/Creatinine Ratio 37
--- NOTE | 2021-04-24 08:57 | Progress Note ---
Assessment and Plan Assessment and plan: History of present illness: 70-year-old female with past medical history of hypertension, diabetes, hyp erlipidemia, not vaccinated against COVID was brought to the emergency room by EMS because of weakness, syncope, tachypnea, and hypoxia. EMS reports that they were called for the patient having an episode of weakness, and passing out. The patient denies physical pain. The patient admits to loss of taste and smell. Patient reports that significant other/partner has recently been diagnosed with COVID. Patient denies headache, neck pain, chest pain, abdominal pain, hematemesis and bright red blood per rectum. She feels short of breath. EMS reports the patient was hypoxic in the field to 90%, and they started her on 3 L of supplemental oxygen. EMS also notes that the patient is tachypneic. Patient corroborates that she feels tachypnea Hospital Course: 04/23/2021: Continue insulin gtt, high suspicion for covid, repeat rt-pcr. 04/24/2021: Lantus 10 subq qhs once. Will start on basal bolus regimen. Start diabetic diet. Transfer to med/surg floor bed. Awaiting rpt covid pcr. Assessment and Plan #Acute respiratory failure with hypoxia Multifactorial between pulmonary embolism and suspected COVID-19 pneumonia -COVID PCR re ordered -CTA chest demonstrates pulmonary embolism, patchy multifocal infiltrates noted. Currently on supplemental oxygen nasal cannula 4 L/min PCCM consulted ID consulted #Pulmonary embolism -No prior history of VTE. Possibly due to underlying COVID disease process -Anticoagulation with therapeutic Lovenox -Supplemental oxygen #Bilateral Pneumonia - CTA findings as above - suspect viral etiology with high suspicion for covid - hold off on abx for now due to low procal - supplemental O2 as above - may restart decadron and consider experimental therapies if repeat covid is negative as well. - pulm consulted - ID consulted #Severe sepsis - bcx/ucx/scx - empiric abx for cap coverage d/c due to normal procal. - decadron d/c, will resume if repeat covid + - ID consulted on admission #Person under investigation for COVID 19 PNA -elevated inflammatory markers -CTA chest highly suspicious for findings consistent with COVID-19 pneumonia COVID-19 RT-PCR negative on 04/22, suspect this was a false negative. repeat covid 19 rt pcr ordered #Diabetic ketoacidosis -Likely precipitated by Decadron/underlying infection - gap: 17 -Currently on insulin gtt. - Fluids with d5-1/2 NS - serial bmp q4hr. - CCM consult #Type 2 diabetes with hyperglycemia -home regimen: 20 units insulin N qAM, INsulin R 10 units with meals +SSI. patient makes adjustments based on CGM readings - A1c: 9.7 - management as above. May need adjustment of PM insulin due to elevated BG in evenings. - can recommend optimization of home regimen on discharge. #Syncope -Could be explained by pulmonary embolism, initial cardiac troponin 0.01 Dispo: ICU. Can likely be stepped down to floor once anion gap closed and BG under better controlled. The high probability of a clinically significant, sudden or life threatening deterioration of the [multi] system(s) required my full and direct attention, intervention and personal management. The aggregate critical care time was [60] minutes. This time is in addition to time spent performing reported procedures but includes the following: [x] Data Review and interpretation [x] Patient assessment and monitoring of vital signs [x] Documentation [x] Medication orders and management History Interval history: No acute complaints on encounter. on 2 l/min nc. Hospitalist Physical - Physical exam Narrative exam: Physical Exam: VITAL SIGNS: Reviewed. GENERAL: The patient appears normally developed, Vital signs as documented. NAD, on 4l/min nc HEAD: No signs of head trauma. EYES: Pupils are equal. Extraocular motions intact. EARS: Hearing grossly intact. MOUTH: Oropharynx is normal. NECK: No adenopathy, no JVD. CHEST: bl rhonchi CARDIAC: Regular rate and rhythm. S1 and S2, without murmurs, gallops, or rubs. VASCULAR: No Edema. Peripheral pulses normal and equal in all extremities. ABDOMEN: Soft, non tender and non distended. No rebound or guarding, and no masses palpated. Bowel Sounds normal. MUSCULOSKELETAL: Good range of motion of all major joints. Extremities without clubbing, cyanosis or edema. NEUROLOGIC EXAM: Alert and oriented x 4. no focal sensory or strength deficits. PSYCHIATRIC: Mood normal. SKIN: Left arm cgm implant. detail exam as documented in skin assessment - Constitutional Vitals: Temp Pulse Resp BP Pulse Ox 97.9 F 82 19 158/81 94 04/23/21 20:20 04/24/21 06:46 04/24/21 06:46 04/24/21 06:46 04/24/21 06:46 General appearance: Present: no acute distress, well-nourished HEART Score - HEART Score Troponin: Troponin T < 0.010 ng/mL (0.00-0.029) 04/21/21 21:39 Results - Labs CBC & Chem 7: 04/23/21 05:18 04/24/21 11:53 Labs: Laboratory Last Values WBC 10.6 K/mm3 (4.5-11.0) 04/23/21 05:18 RBC 4.05 M/mm3 (3.65-5.03) 04/23/21 05:18 Hgb 11.1 gm/dl (10.1-14.3) 04/23/21 05:18 Hct 35.6 % (30.3-42.9) 04/23/21 05:18 MCV 88 fl (79-97) 04/23/21 05:18 MCH 27 pg (28-32) L 04/23/21 05:18 MCHC 31 % (30-34) 04/23/21 05:18 RDW 13.7 % (13.2-15.2) 04/23/21 05:18 Plt Count 274 K/mm3 (140-440) 04/23/21 05:18 Add Manual Diff Complete 04/23/21 05:18 Total Counted 100 04/23/21 05:18 Seg Neutrophils % Crossing Tender 04/23/21 05:18 Seg Neuts % (Manual) 99.0 % (40.0-70.0) H 04/23/21 05:18 Band Neutrophils % 0 % 04/23/21 05:18 Lymphocytes % (Manual) 0 % (13.4-35.0) L 04/23/21 05:18 Reactive Lymphs % (Man) 0 % 04/23/21 05:18 Monocytes % (Manual) 1.0 % (0.0-7.3) 04/23/21 05:18 Eosinophils % (Manual) 0 % (0.0-4.3) 04/23/21 05:18 Basophils % (Manual) 0 % (0.0-1.8) 04/23/21 05:18 Metamyelocytes % 0 % 04/23/21 05:18 Myelocytes % 0 % 04/23/21 05:18 Promyelocytes % 0 % 04/23/21 05:18 Blast Cells % 0 % 04/23/21 05:18 Nucleated RBC % Not Reportable 04/23/21 05:18 Seg Neutrophils # Man 10.5 K/mm3 (1.8-7.7) H 04/23/21 05:18 Band Neutrophils # 0.0 K/mm3 04/23/21 05:18 Lymphocytes # (Manual) 0.0 K/mm3 (1.2-5.4) L 04/23/21 05:18 Abs React Lymphs (Man) 0.0 K/mm3 04/23/21 05:18 Monocytes # (Manual) 0.1 K/mm3 (0.0-0.8) 04/23/21 05:18 Eosinophils # (Manual) 0.0 K/mm3 (0.0-0.4) 04/23/21 05:18 Basophils # (Manual) 0.0 K/mm3 (0.0-0.1) 04/23/21 05:18 Metamyelocytes # 0.0 K/mm3 04/23/21 05:18 Myelocytes # 0.0 K/mm3 04/23/21 05:18 Promyelocytes # 0.0 K/mm3 04/23/21 05:18 Blast Cells # 0.0 K/mm3 04/23/21 05:18 WBC Morphology Not Reportable 04/23/21 05:18 Hypersegmented Neuts Not Reportable 04/23/21 05:18 Hyposegmented Neuts Not Reportable 04/23/21 05:18 Hypogranular Neuts Not Reportable 04/23/21 05:18 Smudge Cells Not Reportable 04/23/21 05:18 Toxic Granulation Not Reportable 04/23/21 05:18 Toxic Vacuolation Not Reportable 04/23/21 05:18 Dohle Bodies Not Reportable 04/23/21 05:18 Pelger-Huet Anomaly Not Reportable 04/23/21 05:18 Florentino Rods Not Reportable 04/23/21 05:18 Platelet Estimate Consistent w auto 04/23/21 05:18 Clumped Platelets Not Reportable 04/23/21 05:18 Plt Clumps, EDTA Not Reportable 04/23/21 05:18 Large Platelets Not Reportable 04/23/21 05:18 Giant Platelets Not Reportable 04/23/21 05:18 Platelet Satelliting Not Reportable 04/23/21 05:18 Plt Morphology Comment Not Reportable 04/23/21 05:18 RBC Morphology Normal 04/23/21 05:18 Dimorphic RBCs Not Reportable 04/23/21 05:18 Polychromasia Not Reportable 04/23/21 05:18 Hypochromasia Not Reportable 04/23/21 05:18 Poikilocytosis Not Reportable 04/23/21 05:18 Anisocytosis Not Reportable 04/23/21 05:18 Microcytosis Not Reportable 04/23/21 05:18 Macrocytosis Not Reportable 04/23/21 05:18 Spherocytes Not Reportable 04/23/21 05:18 Pappenheimer Bodies Not Reportable 04/23/21 05:18 Sickle Cells Not Reportable 04/23/21 05:18 Target Cells Not Reportable 04/23/21 05:18 Tear Drop Cells Not Reportable 04/23/21 05:18 Ovalocytes Not Reportable 04/23/21 05:18 Helmet Cells Not Reportable 04/23/21 05:18 [place] Bodies Not Reportable 04/23/21 05:18 [place] Rings Not Reportable 04/23/21 05:18 Tr[place]ble Cells Not Reportable 04/23/21 05:18 Bite Cells Not Reportable 04/23/21 05:18 Crenated Cell Not Reportable 04/23/21 05:18 Elliptocytes Not Reportable 04/23/21 05:18 Acanthocytes (Spur) Not Reportable 04/23/21 05:18 Rouleaux Not Reportable 04/23/21 05:18 Hemoglobin C Crystals Not Reportable 04/23/21 05:18 Schistocytes Not Reportable 04/23/21 05:18 Malaria parasites Not Reportable 04/23/21 05:18 Alex Bodies Not Reportable 04/23/21 05:18 Hem Pathologist Commnt No 04/23/21 05:18 PT 15.5 Sec. (12.2-14.9) H 04/21/21 21:39 INR 1.11 (0.87-1.13) 04/21/21 21:39 D-Dimer > 99684 ng/mlDDU (0-234) H 04/21/21 21:39 ABG pH 7.358 pH Units (7.350-7.450) 04/21/21 23:23 ABG pCO2 25.4 mm Hg 04/21/21 23:23 ABG pO2 79.4 mm Hg (80.0-90.0) L 04/21/21 23:23 ABG HCO3 14.0 mmol/L (20.0-26.0) L 04/21/21 23:23 ABG O2 Saturation 95.6 % (95.0-99.0) 04/21/21 23: ABG O2 Content 14.9 (0.0-44) 04/21/21 23: ABG Base Excess -10.0 mmol/L (-2.0-3.0) L 04/21/21 23: ABG Hemoglobin 11.2 gm/dl (12.0-16.0) L 04/21/21 23: ABG Carboxyhemoglobin 0.8 % (0.0-5.0) 04/21/21 23: ABG Methemoglobin 0.4 % (0.0-1.5) 04/21/21 23: Oxyhemoglobin 94.4 % (95.0-99.0) L 04/21/21 23: FiO2 36 % 04/21/21 23:23 Sodium 144 mmol/L (137-145) 04/24/21 04:08 Potassium 3.9 mmol/L (3.6-5.0) 04/24/21 04:08 Chloride 108.9 mmol/L (98-107) H 04/24/21 04:08 Carbon Dioxide 21 mmol/L (22-30) L 04/24/21 04:08 Anion Gap 18 mmol/L 04/24/21 04:08 BUN 22 mg/dL (7-17) H 04/24/21 04:08 Creatinine 0.6 mg/dL (0.6-1.2) 04/24/21 04:08 Estimated GFR > 60 ml/min 04/24/21 04:08 BUN/Creatinine Ratio 37 % 04/24/21 04:08 Glucose 114 mg/dL (65-100) H 04/24/21 04:08 POC Glucose 129 mg/dL (70-105) H 04/24/21 06:28 Hemoglobin A1c 9.7 % (4-6) H 04/22/21 13:05 Lactic Acid 1.80 mmol/L (0.7-2.0) 04/21/21 21:39 Calcium 8.4 mg/dL (8.4-10.2) 04/24/21 04:08 Phosphorus 4.20 mg/dL (2.5-4.5) 04/22/21 13:05 Magnesium 1.90 mg/dL (1.7-2.3) 04/22/21 13:05 Ferritin 399.4 ng/mL (10.0-200.0) H 04/21/21 21:39 Total Bilirubin 0.50 mg/dL (0.1-1.2) 04/24/21 04:08 AST 22 units/L (5-40) 04/24/21 04:08 ALT 14 units/L (7-56) 04/24/21 04:08 Alkaline Phosphatase 97 units/L (35-129) 04/24/21 04:08 Lactate Dehydrogenase 498 units/L (91-180) H 04/21/21 21:39 Lactate Dehydrogenase 509 units/L (91-180) H 04/21/21 21:39 Troponin T < 0.010 ng/mL (0.00-0.029) 04/21/21 21:39 C-Reactive Protein 18.70 mg/dL (0.00-1.30) H 04/21/21 21:39 C-Reactive Protein 19.00 mg/dL (0.00-1.30) H 04/21/21 21:39 Total Protein 5.9 g/dL (6.3-8.2) L 04/24/21 04:08 Albumin 3.1 g/dL (3.9-5) L 04/24/21 04:08 Albumin/Globulin Ratio 1.1 % 04/24/21 04:08 Procalcitonin 0.08 ng/mL (<0.15) 04/21/21 21:39 Urine Color Yellow (Yellow) 04/22/21 01:15 Urine Turbidity Clear (Clear) 04/22/21 01:15 Urine pH 5.0 (5.0-7.0) 04/22/21 01:15 Ur Specific [place] 1.054 (1.003-1.030) H 04/22/21 01:15 Urine Protein 30 mg/dl mg/dL (Negative) 04/22/21 01:15 Urine Glucose (UA) >=500 mg/dL (Negative) 04/22/21 01:15 Urine Ketones 80 mg/dL (Negative) 04/22/21 01:15 Urine Blood Neg (Negative) 04/22/21 01:15 Urine Nitrite Neg (Negative) 04/22/21 01:15 Ur Reducing Substances Not Reportable 04/22/21 01:15 Urine Bilirubin Neg (Negative) 04/22/21 01:15 Urine Ictotest Not Reportable 04/22/21 01:15 Urine Urobilinogen < 2.0 mg/dL (<2.0) 04/22/21 01:15 Ur Leukocyte Esterase Sm (Negative) 04/22/21 01:15 Urine WBC (Auto) 20.0 /HPF (0.0-6.0) H 04/22/21 01:15 Urine RBC (Auto) 4.0 /HPF (0.0-6.0) 04/22/21 01:15 U Epithel Cells (Auto) 2.0 /HPF (0-13.0) 04/22/21 01:15 Urine Bacteria (Auto) 3+ /HPF (Negative) 04/22/21 01:15 Urine Yeast (Budding) Few /HPF 04/22/21 01:15 Coronavirus (PCR) Negative (Negative) 04/22/21 08:00 Microbiology: Microbiology 04/21/21 21:39 Peripheral/Venous Blood Culture - Preliminary NO GROWTH AFTER 48 HOURS 04/21/21 21:54 Peripheral/Venous Blood Culture - Preliminary NO GROWTH AFTER 48 HOURS 04/22/21 01:15 Urine,Clean Catch Urine Culture - Preliminary Active Medications - Current Medications Current Medications: Generic Name Dose Route Start Last Admin Trade Name Freq PRN Reason Stop Dose Admin Acetaminophen 650 mg 04/22/21 01:39 Acetaminophen 325 Mg Tab PO Q4H PRN Pain MILD(1-3)/Fever >100.5/YUSUF Albuterol 2.5 mg 04/22/21 01:39 Albuterol 2.5 Mg/3 Ml Nebu IH Q4HRT PRN Shortness Of Breath Albuterol/Ipratropium 1 ampul 04/24/21 08:00 Ipratropium/Albuterol Sulfate 3 Ml Ampul.Neb IH TIDRT TRAY Dextrose 0 ml 04/22/21 01:39 Dextrose 50% In Water (25gm) 50 Ml Syringe IV Q30MIN PRN Hypoglycemia Protocol Enoxaparin Sodium 90 mg 04/22/21 20:00 04/23/21 23:35 Enoxaparin 100 Mg/1 Ml Inj SUB-Q 90 mg Q12H TRAY Administration Protocol Famotidine 20 mg 04/22/21 10:00 04/23/21 23:37 Famotidine 20 Mg Tab PO Not Given BID TRAY Hydralazine HCl 10 mg 04/22/21 01:42 Hydralazine 20 Mg/1 Ml Inj IV Q6H PRN Blood Pressure Hydromorphone HCl 0.5 mg 04/22/21 01:39 Hydromorphone 1 Mg/1 Ml Inj IV Q3H PRN Pain , Severe (7-10) Insulin Human Regular 100 100 mls @ 1 mls/hr 04/22/21 14:00 04/24/21 06:35 units/ Sodium Chloride IV 1.5 units/hr TITR TRAY 1.5 mls/hr Titration Protocol 1 UNITS/HR Potassium Chloride/Dextrose/Sod Cl 20 meq in 1,000 mls @ 125 mls/hr 04/23/21 19:00 04/23/21 19:04 D5w/0.45% Nacl/Kcl 20 Meq IV 125 mls/hr DIRECT TRAY Administration Insulin Human Lispro 0 unit 04/22/21 07:30 04/23/21 23:02 Insulin Lispro 100 Unit/Ml SUB-Q Not Given A[facility]S [facility] Protocol Lisinopril 5 mg 04/22/21 10:00 04/23/21 13:28 Lisinopril 5 Mg Tab PO 5 mg QDAY TRAY Administration Morphine Sulfate 2 mg 04/22/21 01:39 Morphine 2 Mg/1 Ml Inj IV Q4H PRN Pain, Moderate (4-6) Ondansetron HCl 4 mg 04/22/21 01:39 Ondansetron 4 Mg/2 Ml Inj IV Q8H PRN Nausea And Vomiting Sodium Chloride 10 ml 04/22/21 10:00 04/23/21 23:02 Sodium Chloride 0.9% 10 Ml Flush Syringe IV 10 ml BID TRAY Administration Sodium Chloride 10 ml 04/22/21 01:39 Sodium Chloride 0.9% 10 Ml Flush Syringe IV PRN PRN LINE FLUSH Nutrition/Malnutrition Assess - Dietary Evaluation Nutrition/Malnutrition Findings: Nutrition Notes Start: 04/22/21 08:44 Freq: Status: Active Protocol: Document 04/22/21 08:44 JOSE (Rec: 04/22/21 08:48 JOSE [id number]) Nutrition Notes Need for Assessment generated from: MD Order,Education Initial or Follow up Brief Note Current Diet Cardiac/Consistent Carbohydrates Diet (since B ). Height 5 ft 6 in Weight 90.718 kg [place] Body Weight (kg) 59.09 BMI 32.3 Weight change and time frame None reported at admission. Weight Status Obese Subjective/Other Information RD consult for Nutrition Education. Pt still on ED, not a candidate for Nutrition Education at the time, will assess feasibility on F/U. Percent of energy/protein needs met: Prescribed Cardiac/Consistent Carbohydrates Diet provides for energy/protein needs (1, 977 Kcal/86 g) during LOS. Nutrition Intervention Follow-Up By: 04/29/21 Additional Comments Nutrition education will be provided on F/U if feasible. Continue monitoring food tolerance, %PO intake of meals , and BM.
--- NOTE | 2021-04-24 09:23 | Progress Note ---
Assessment and Plan 70 y/o female with acute respiratory failure secondary to pulmonary embolism and DKA resolved. 04/24/21: If not repeat covid testing needs hypercoaguable work up. Suggest sending the following now: Anti thrombin 3, Prothombin gene mutation, factor V leiden and homocysteine levels. Cannot send Protein C and S during acute VTE. Also need to make sure she has had the proper FISHER TRAP and age appropriate related health screening for malignancy (pap, colonoscopy, mammogram, etc). Wean FiO2 as tolerated for sats >88%. Will need ambulatory test prior to discharge. Will continue to follow. Gap is 20 measured and 16 when calculated. Anticoagulation for PE. If COVID negative needs hypercoag work up. LE dopplers Should be able to downgrade to floor, which one pending COVID testing. Subjective Date of service: 04/24/21 Interval history: Off insulin drip. Pulm status is stable to improving. On BID lovenox. I only see one covid test completed. Objective Vital Signs - 12hr 04/23/21 04/23/21 04/23/21 21:30 21:46 22:00 Pulse Rate 83 90 95 H Respiratory 20 23 19 Rate Blood Pressure 155/59 155/59 137/68 O2 Sat by Pulse 96 96 97 Oximetry 04/23/21 04/23/21 04/23/21 22:16 22:30 22:46 Pulse Rate 82 83 81 Respiratory 20 21 20 Rate Blood Pressure 137/68 137/68 137/68 O2 Sat by Pulse 98 97 98 Oximetry 04/23/21 04/24/21 04/24/21 23:00 01:00 01:16 Pulse Rate 81 82 89 Respiratory 20 13 15 Rate Blood Pressure 137/68 137/60 144/60 O2 Sat by Pulse 98 96 94 Oximetry 04/24/21 04/24/21 04/24/21 01:30 01:46 02:00 Pulse Rate 86 82 81 Respiratory 25 H 22 20 Rate Blood Pressure 143/64 143/64 168/76 O2 Sat by Pulse 94 98 97 Oximetry 04/24/21 04/24/21 04/24/21 02:16 02:30 02:46 Pulse Rate 84 82 82 Respiratory 23 20 21 Rate Blood Pressure 168/76 150/61 150/61 O2 Sat by Pulse 97 98 96 Oximetry 04/24/21 04/24/21 04/24/21 03:00 03:16 03:30 Pulse Rate 82 79 80 Respiratory 21 22 14 Rate Blood Pressure 150/69 150/69 161/82 O2 Sat by Pulse 96 97 98 Oximetry 04/24/21 04/24/21 04/24/21 03:46 04:00 04:16 Pulse Rate 75 83 82 Respiratory 17 20 19 Rate Blood Pressure 161/82 160/76 160/76 O2 Sat by Pulse 97 98 98 Oximetry 04/24/21 04/24/21 04/24/21 04:30 04:46 05:00 Pulse Rate 79 77 82 Respiratory 10 L 11 L 16 Rate Blood Pressure 160/76 160/76 160/76 O2 Sat by Pulse 97 98 98 Oximetry 04/24/21 04/24/21 04/24/21 05:16 05:30 05:46 Pulse Rate 83 79 80 Respiratory 21 21 18 Rate Blood Pressure 160/76 160/76 160/76 O2 Sat by Pulse 96 97 95 Oximetry 04/24/21 04/24/21 04/24/21 06:00 06:16 06:30 Pulse Rate 79 73 81 Respiratory 19 19 21 Rate Blood Pressure 160/76 160/76 158/81 O2 Sat by Pulse 96 97 97 Oximetry 04/24/21 06:46 Pulse Rate 82 Respiratory 19 Rate Blood Pressure 158/81 O2 Sat by Pulse 94 Oximetry CBC and BMP: 04/23/21 05:18 04/24/21 04:08 ABG, PT/INR, D-dimer: ABG ABG pH 7.358 pH Units (7.350-7.450) 04/21/21 23:23 ABG pCO2 25.4 mm Hg 04/21/21 23:23 ABG pO2 79.4 mm Hg (80.0-90.0) L 04/21/21 23:23 ABG O2 Saturation 95.6 % (95.0-99.0) 04/21/21 23:23 PT/INR, D-dimer PT 15.5 Sec. (12.2-14.9) H 04/21/21 21:39 INR 1.11 (0.87-1.13) 04/21/21 21:39 D-Dimer > 05755 ng/mlDDU (0-234) H 04/21/21 21:39 Abnormal lab findings: Abnormal Labs 04/21/21 04/21/2104/21/22 21:39 21:39 21:39 MCH Seg Neuts % (Manual) Lymphocytes % (Manual) Seg Neutrophils # Man Lymphocytes # (Manual) PT 15.5 H D-Dimer > 24871 H ABG pO2 ABG HCO3 ABG Base Excess ABG Hemoglobin Oxyhemoglobin Sodium Chloride Carbon Dioxide BUN Creatinine Glucose 439 H POC Glucose Hemoglobin A1c Calcium Ferritin 399.4 H Lactate Dehydrogenase 509 H C-Reactive Protein 19.00 H Total Protein Albumin Ur Specific [place] Urine WBC (Auto) 04/21/21 04/21/21 04/21/21 21:39 21:39 21:39 MCH Seg Neuts % (Manual) 89.0 H Lymphocytes % (Manual) 8.0 L Seg Neutrophils # Man 9.1 H Lymphocytes # (Manual) 0.8 L PT D-Dimer ABG pO2 ABG HCO3 ABG Base Excess ABG Hemoglobin Oxyhemoglobin Sodium 134 L Chloride 93.8 L Carbon Dioxide 16 L BUN 20 H Creatinine Glucose 430 H 428 H POC Glucose Hemoglobin A1c Calcium Ferritin Lactate Dehydrogenase 498 H C-Reactive Protein 18.70 H Total Protein Albumin 3.5 L Ur Specific [place] Urine WBC (Auto) 04/21/21 04/22/21 04/22/21 23:23 01:15 09:16 MCH Seg Neuts % (Manual) Lymphocytes % (Manual) Seg Neutrophils # Man Lymphocytes # (Manual) PT D-Dimer ABG pO2 79.4 L ABG HCO3 14.0 L ABG Base Excess -10.0 L ABG Hemoglobin 11.2 L Oxyhemoglobin 94.4 L Sodium Chloride Carbon Dioxide BUN Creatinine Glucose POC Glucose 532 H Hemoglobin A1c Calcium Ferritin Lactate Dehydrogenase C-Reactive Protein Total Protein Albumin Ur Specific [place] 1.054 H Urine WBC (Auto) 20.0 H 04/22/21 04/22/21 04/22/21 12:07 13:05 13:05 MCH Seg Neuts % (Manual) Lymphocytes % (Manual) Seg Neutrophils # Man Lymphocytes # (Manual) PT D-Dimer ABG pO2 ABG HCO3 ABG Base Excess ABG Hemoglobin Oxyhemoglobin Sodium 132 L Chloride 92.7 L Carbon Dioxide 8 L* D BUN 28 H Creatinine Glucose 624 H* POC Glucose > 600 H Hemoglobin A1c 9.7 H Calcium Ferritin Lactate Dehydrogenase C-Reactive Protein Total Protein Albumin Ur Specific [place] Urine WBC (Auto) 04/22/21 04/22/2104/22/22 15:01 17:59 20:10 MCH Seg Neuts % (Manual) Lymphocytes % (Manual) Seg Neutrophils # Man Lymphocytes # (Manual) PT D-Dimer ABG pO2 ABG HCO3 ABG Base Excess ABG Hemoglobin Oxyhemoglobin Sodium 131 L 136 L Chloride 95.8 L Carbon Dioxide 9 L* 11 L BUN 27 H 24 H Creatinine Glucose 558 H* 435 H POC Glucose 317 H Hemoglobin A1c Calcium Ferritin Lactate Dehydrogenase C-Reactive Protein Total Protein Albumin 3.2 L Ur Specific [place] Urine WBC (Auto) 04/22/21 04/23/21 04/23/21 23:16 02:32 05:18 MCH 27 L Seg Neuts % (Manual) 99.0 H Lymphocytes % (Manual) 0 L Seg Neutrophils # Man 10.5 H Lymphocytes # (Manual) 0.0 L PT D-Dimer ABG pO2 ABG HCO3 ABG Base Excess ABG Hemoglobin Oxyhemoglobin Sodium Chloride Carbon Dioxide 18 L D BUN 24 H Creatinine Glucose 252 H POC Glucose 131 H Hemoglobin A1c Calcium Ferritin Lactate Dehydrogenase C-Reactive Protein Total Protein Albumin Ur Specific [place] Urine WBC (Auto) 04/23/21 04/23/21 04/23/21 05:18 06:18 07:38 MCH Seg Neuts % (Manual) Lymphocytes % (Manual) Seg Neutrophils # Man Lymphocytes # (Manual) PT D-Dimer ABG pO2 ABG HCO3 ABG Base Excess ABG Hemoglobin Oxyhemoglobin Sodium Chloride Carbon Dioxide 17 L BUN 23 H Creatinine Glucose 240 H POC Glucose 285 H 325 H Hemoglobin A1c Calcium Ferritin Lactate Dehydrogenase C-Reactive Protein Total Protein Albumin 3.2 L Ur Specific [place] Urine WBC (Auto) 04/23/21 04/23/21 04/23/21 09:51 11:26 13:23 MCH Seg Neuts % (Manual) Lymphocytes % (Manual) Seg Neutrophils # Man Lymphocytes # (Manual) PT D-Dimer ABG pO2 ABG HCO3 ABG Base Excess ABG Hemoglobin Oxyhemoglobin Sodium Chloride Carbon Dioxide BUN Creatinine Glucose POC Glucose 348 H 324 H 257 H Hemoglobin A1c Calcium Ferritin Lactate Dehydrogenase C-Reactive Protein Total Protein Albumin Ur Specific [place] Urine WBC (Auto) 04/23/21 04/23/21 04/23/21 14:31 15:27 16:18 MCH Seg Neuts % (Manual) Lymphocytes % (Manual) Seg Neutrophils # Man Lymphocytes # (Manual) PT D-Dimer ABG pO2 ABG HCO3 ABG Base Excess ABG Hemoglobin Oxyhemoglobin Sodium Chloride 107.3 H Carbon Dioxide 20 L BUN 25 H Creatinine Glucose 214 H POC Glucose 220 H 203 H Hemoglobin A1c Calcium Ferritin Lactate Dehydrogenase C-Reactive Protein Total Protein Albumin Ur Specific [place] Urine WBC (Auto) 04/23/21 04/23/21 04/23/21 18:22 18:33 20:10 MCH Seg Neuts % (Manual) Lymphocytes % (Manual) Seg Neutrophils # Man Lymphocytes # (Manual) PT D-Dimer ABG pO2 ABG HCO3 ABG Base Excess ABG Hemoglobin Oxyhemoglobin Sodium Chloride 109.8 H Carbon Dioxide 20 L BUN 25 H Creatinine Glucose 215 H POC Glucose 178 H 211 H Hemoglobin A1c Calcium Ferritin Lactate Dehydrogenase C-Reactive Protein Total Protein Albumin Ur Specific [place] Urine WBC (Auto) 04/23/21 04/23/21 04/23/21 21:19 22:27 23:32 MCH Seg Neuts % (Manual) Lymphocytes % (Manual) Seg Neutrophils # Man Lymphocytes # (Manual) PT D-Dimer ABG pO2 ABG HCO3 ABG Base Excess ABG Hemoglobin Oxyhemoglobin Sodium Chloride Carbon Dioxide BUN Creatinine Glucose POC Glucose 215 H 186 H 152 H Hemoglobin A1c Calcium Ferritin Lactate Dehydrogenase C-Reactive Protein Total Protein Albumin Ur Specific [place] Urine WBC (Auto) 04/23/21 04/24/21 04/24/21 23:53 02:37 03:55 [facility] Seg Neuts % (Manual) Lymphocytes % (Manual) Seg Neutrophils # Man Lymphocytes # (Manual) PT D-Dimer ABG pO2 ABG HCO3 ABG Base Excess ABG Hemoglobin Oxyhemoglobin Sodium Chloride 111.0 H Carbon Dioxide 20 L BUN 24 H Creatinine 0.5 L Glucose 156 H POC Glucose 111 H 111 H Hemoglobin A1c Calcium 8.3 L Ferritin Lactate Dehydrogenase C-Reactive Protein Total Protein Albumin Ur Specific Avery Urine WBC (Auto) 04/24/21 04/24/21 04:08 06:28 [facility] Seg Neuts % (Manual) Lymphocytes % (Manual) Seg Neutrophils # Man Lymphocytes # (Manual) PT D-Dimer ABG pO2 ABG HCO3 ABG Base Excess ABG Hemoglobin Oxyhemoglobin Sodium Chloride 108.9 H Carbon Dioxide 21 L BUN 22 H Creatinine Glucose 114 H POC Glucose 129 H Hemoglobin A1c Calcium Ferritin Lactate Dehydrogenase C-Reactive Protein Total Protein 5.9 L Albumin 3.1 L Ur Specific Avery Urine WBC (Auto)
[2021-04-24] MEDS: ENOXAPARIN 100 MG/1 ML INJ SUB-Q SCH ×2 (09:34→20:00)
[2021-04-24] MEDS: INSULIN LISPRO 100 UNIT/ML SUB-Q SCH ×4 (09:43→22:43)
[2021-04-24 10:08] LABS: Blood Urea Nitrogen 19 mg/dL (7-17); Calcium 8.5 mg/dL (8.4-10.2); Hemolysis Index 4
[2021-04-24 10:11] LABS: BUN/Creatinine Ratio 38
[2021-04-24] MEDS: D5W/0.45% NACL/KCL 20 MEQ 20 MEQ/1,000 ML BAG IV SCH (10:27)
[2021-04-24] MEDS: FAMOTIDINE 20 MG TAB PO SCH ×2 (10:36→22:45)
[2021-04-24 12:35] LABS: Blood Urea Nitrogen 17 mg/dL (7-17); Calcium 8.3 mg/dL (8.4-10.2); Hemolysis Index 3
[2021-04-24 12:37] LABS: BUN/Creatinine Ratio 34
[2021-04-24] MEDS: LISINOPRIL 5 MG TAB PO SCH (13:02)
[2021-04-24] MEDS ORDERED: INSULIN GLARGINE 100 UNITS/ML SUB-Q ONE (13:30)
[2021-04-24 15:30] LABS: Blood Urea Nitrogen 17 mg/dL (7-17); Calcium 8.4 mg/dL (8.4-10.2); Hemolysis Index 2
[2021-04-24 15:31] LABS: BUN/Creatinine Ratio 34
[2021-04-24] MEDS: INSULIN REGULAR, HUMAN 100 UNITS/1 ML SUB-Q SCH ×2 (18:46→22:38)
[2021-04-24] MEDS: INSULIN GLARGINE 100 UNITS/ML SUB-Q SCH (22:00)
[2021-04-24] MEDS: IPRATROPIUM/ALBUTEROL SULFATE 3 ML AMPUL.NEB IH SCH (22:44)
[2021-04-25 05:33] LABS: Alanine Aminotransferase 17 units/L (7-56); Albumin 2.9 g/dL (3.9-5); Blood Urea Nitrogen 16 mg/dL (7-17); Calcium 8.6 mg/dL (8.4-10.2); Hemolysis Index 5
[2021-04-25 05:42] LABS: BUN/Creatinine Ratio 32
--- NOTE | 2021-04-25 07:46 | Progress Note ---
Assessment and Plan Assessment and plan: History of present illness: 70-year-old female with past medical history of hypertension, diabetes, hyp erlipidemia, not vaccinated against COVID was brought to the emergency room by EMS because of weakness, syncope, tachypnea, and hypoxia. EMS reports that they were called for the patient having an episode of weakness, and passing out. The patient denies physical pain. The patient admits to loss of taste and smell. Patient reports that significant other/partner has recently been diagnosed with COVID. Patient denies headache, neck pain, chest pain, abdominal pain, hematemesis and bright red blood per rectum. She feels short of breath. EMS reports the patient was hypoxic in the field to 90%, and they started her on 3 L of supplemental oxygen. EMS also notes that the patient is tachypneic. Patient corroborates that she feels tachypnea Hospital Course: 04/23/2021: Continue insulin gtt, high suspicion for covid, repeat rt-pcr. 04/24/2021: Lantus 10 subq qhs once. Will start on basal bolus regimen. Start diabetic diet. Transfer to med/surg floor bed. Awaiting rpt covid pcr. 04/25/2021: repeat covid test negative . AG is closed now. resumed subcutaneous insulin but apparently this was not given overnight. Blood sugars as a result were in 300's. Ordered additional lantus dose for today and instructed RN to admin. ok to start diabetic diet. CM consult for oxygen and Pt consulted to assess patient for weakness.Anticipate d/c in next 24-48 hrs. Assessment and Plan #Acute respiratory failure with hypoxia Multifactorial between pulmonary embolism and suspected COVID-19 pneumonia -COVID PCR re ordered -CTA chest demonstrates pulmonary embolism, patchy multifocal infiltrates noted. Currently on supplemental oxygen nasal cannula 4 L/min PCCM consulted ID consulted #Pulmonary embolism -No prior history of VTE. Possibly due to underlying COVID disease process -Anticoagulation with therapeutic Lovenox -Supplemental oxygen #Bilateral Pneumonia - CTA findings as above - suspect viral etiology with high suspicion for covid - hold off on abx for now due to low procal - supplemental O2 as above - may restart decadron and consider experimental therapies if repeat covid is negative as well. - pulm consulted - ID consulted #Severe sepsis - bcx/ucx/scx - empiric abx for cap coverage d/c due to normal procal. - decadron d/c, will resume if repeat covid + - ID consulted on admission #Person under investigation for COVID 19 PNA -elevated inflammatory markers -CTA chest highly suspicious for findings consistent with COVID-19 pneumonia COVID-19 RT-PCR negative on 04/22, suspect this was a false negative. repeat covid 19 rt pcr ordered #Diabetic ketoacidosis -Likely precipitated by Decadron/underlying infection - gap: 17 -Currently on insulin gtt. - Fluids with d5-1/2 NS - serial bmp q4hr. - CCM consult #Type 2 diabetes with hyperglycemia -home regimen: 20 units insulin N qAM, INsulin R 10 units with meals +SSI. patient makes adjustments based on CGM readings - A1c: 9.7 - management as above. May need adjustment of PM insulin due to elevated BG in evenings. - can recommend optimization of home regimen on discharge. #Syncope -Could be explained by pulmonary embolism, initial cardiac troponin 0.01 History Interval history: NO complaints. resting comfortably. Hospitalist Physical - Physical exam Narrative exam: Physical Exam: VITAL SIGNS: Reviewed. GENERAL: The patient appears normally developed, Vital signs as documented. NAD, on 4l/min nc HEAD: No signs of head trauma. EYES: Pupils are equal. Extraocular motions intact. EARS: Hearing grossly intact. MOUTH: Oropharynx is normal. NECK: No adenopathy, no JVD. CHEST: bl rhonchi CARDIAC: Regular rate and rhythm. S1 and S2, without murmurs, gallops, or rubs. VASCULAR: No Edema. Peripheral pulses normal and equal in all extremities. ABDOMEN: Soft, non tender and non distended. No rebound or guarding, and no masses palpated. Bowel Sounds normal. MUSCULOSKELETAL: Good range of motion of all major joints. Extremities without clubbing, cyanosis or edema. NEUROLOGIC EXAM: Alert and oriented x 4. no focal sensory or strength deficits. PSYCHIATRIC: Mood normal. SKIN: Left arm cgm implant. detail exam as documented in skin assessment - Constitutional Vitals: Temp Pulse Resp BP Pulse Ox 97.9 F 71 18 138/65 95 04/23/21 20:20 04/25/21 03:45 04/25/21 03:45 04/25/21 03:45 04/25/21 03:45 General appearance: Present: no acute distress, well-nourished HEART Score - HEART Score Troponin: Troponin T < 0.010 ng/mL (0.00-0.029) 04/21/21 21:39 Results - Labs CBC & Chem 7: 04/23/21 05:18 04/25/21 04:45 Labs: Laboratory Last Values WBC 10.6 K/mm3 (4.5-11.0) 04/23/21 05:18 RBC 4.05 M/mm3 (3.65-5.03) 04/23/21 05:18 Hgb 11.1 gm/dl (10.1-14.3) 04/23/21 05:18 Hct 35.6 % (30.3-42.9) 04/23/21 05:18 MCV 88 fl (79-97) 04/23/21 05:18 MCH 27 pg (28-32) L 04/23/21 05:18 MCHC 31 % (30-34) 04/23/21 05:18 RDW 13.7 % (13.2-15.2) 04/23/21 05:18 Plt Count 274 K/mm3 (140-440) 04/23/21 05:18 Add Manual Diff Complete 04/23/21 05:18 Total Counted 100 04/23/21 05:18 Seg Neutrophils % Cafe Attendant 04/23/21 05:18 Seg Neuts % (Manual) 99.0 % (40.0-70.0) H 04/23/21 05:18 Band Neutrophils % 0 % 04/23/21 05:18 Lymphocytes % (Manual) 0 % (13.4-35.0) L 04/23/21 05:18 Reactive Lymphs % (Man) 0 % 04/23/21 05:18 Monocytes % (Manual) 1.0 % (0.0-7.3) 04/23/21 05:18 Eosinophils % (Manual) 0 % (0.0-4.3) 04/23/21 05:18 Basophils % (Manual) 0 % (0.0-1.8) 04/23/21 05:18 Metamyelocytes % 0 % 04/23/21 05:18 Myelocytes % 0 % 04/23/21 05:18 Promyelocytes % 0 % 04/23/21 05:18 Blast Cells % 0 % 04/23/21 05:18 Nucleated RBC % Not Reportable 04/23/21 05:18 Seg Neutrophils # Man 10.5 K/mm3 (1.8-7.7) H 04/23/21 05:18 Band Neutrophils # 0.0 K/mm3 04/23/21 05:18 Lymphocytes # (Manual) 0.0 K/mm3 (1.2-5.4) L 04/23/21 05:18 Abs React Lymphs (Man) 0.0 K/mm3 04/23/21 05:18 Monocytes # (Manual) 0.1 K/mm3 (0.0-0.8) 04/23/21 05:18 Eosinophils # (Manual) 0.0 K/mm3 (0.0-0.4) 04/23/21 05:18 Basophils # (Manual) 0.0 K/mm3 (0.0-0.1) 04/23/21 05:18 Metamyelocytes # 0.0 K/mm3 04/23/21 05:18 Myelocytes # 0.0 K/mm3 04/23/21 05:18 Promyelocytes # 0.0 K/mm3 04/23/21 05:18 Blast Cells # 0.0 K/mm3 04/23/21 05:18 WBC Morphology Not Reportable 04/23/21 05:18 Hypersegmented Neuts Not Reportable 04/23/21 05:18 Hyposegmented Neuts Not Reportable 04/23/21 05:18 Hypogranular Neuts Not Reportable 04/23/21 05:18 Smudge Cells Not Reportable 04/23/21 05:18 Toxic Granulation Not Reportable 04/23/21 05:18 Toxic Vacuolation Not Reportable 04/23/21 05:18 Dohle Bodies Not Reportable 04/23/21 05:18 Pelger-Huet Anomaly Not Reportable 04/23/21 05:18 Florentino Rods Not Reportable 04/23/21 05:18 Platelet Estimate Consistent w auto 04/23/21 05:18 Clumped Platelets Not Reportable 04/23/21 05:18 Plt Clumps, EDTA Not Reportable 04/23/21 05:18 Large Platelets Not Reportable 04/23/21 05:18 Giant Platelets Not Reportable 04/23/21 05:18 Platelet Satelliting Not Reportable 04/23/21 05:18 Plt Morphology Comment Not Reportable 04/23/21 05:18 RBC Morphology Normal 04/23/21 05:18 Dimorphic RBCs Not Reportable 04/23/21 05:18 Polychromasia Not Reportable 04/23/21 05:18 Hypochromasia Not Reportable 04/23/21 05:18 Poikilocytosis Not Reportable 04/23/21 05:18 Anisocytosis Not Reportable 04/23/21 05:18 Microcytosis Not Reportable 04/23/21 05:18 Macrocytosis Not Reportable 04/23/21 05:18 Spherocytes Not Reportable 04/23/21 05:18 Pappenheimer Bodies Not Reportable 04/23/21 05:18 Sickle Cells Not Reportable 04/23/21 05:18 Target Cells Not Reportable 04/23/21 05:18 Tear Drop Cells Not Reportable 04/23/21 05:18 Ovalocytes Not Reportable 04/23/21 05:18 Helmet Cells Not Reportable 04/23/21 05:18 [place] Bodies Not Reportable 04/23/21 05:18 [place] Rings Not Reportable 04/23/21 05:18 Felipa Cells Not Reportable 04/23/21 05:18 Bite Cells Not Reportable 04/23/21 05:18 Crenated Cell Not Reportable 04/23/21 05:18 Elliptocytes Not Reportable 04/23/21 05:18 Acanthocytes (Spur) Not Reportable 04/23/21 05:18 Rouleaux Not Reportable 04/23/21 05:18 Hemoglobin C Crystals Not Reportable 04/23/21 05:18 Schistocytes Not Reportable 04/23/21 05:18 Malaria parasites Not Reportable 04/23/21 05:18 Alex Bodies Not Reportable 04/23/21 05:18 Hem Pathologist Commnt No 04/23/21 05:18 PT 15.5 Sec. (12.2-14.9) H 04/21/21 21:39 INR 1.11 (0.87-1.13) 04/21/21 21:39 D-Dimer > 46266 ng/mlDDU (0-234) H 04/21/21 21:39 ABG pH 7.358 pH Units (7.350-7.450) 04/21/21 23:23 ABG pCO2 25.4 mm Hg 04/21/21 23:23 ABG pO2 79.4 mm Hg (80.0-90.0) L 04/21/21 23:23 ABG HCO3 14.0 mmol/L (20.0-26.0) L 04/21/21 23:23 ABG O2 Saturation 95.6 % (95.0-99.0) 04/21/21 23: ABG O2 Content 14.9 (0.0-44) 04/21/21 23: ABG Base Excess -10.0 mmol/L (-2.0-3.0) L 04/21/21 23: ABG Hemoglobin 11.2 gm/dl (12.0-16.0) L 04/21/21 23: ABG Carboxyhemoglobin 0.8 % (0.0-5.0) 04/21/21 23: ABG Methemoglobin 0.4 % (0.0-1.5) 04/21/21 23: Oxyhemoglobin 94.4 % (95.0-99.0) L 04/21/21 23:23 FiO2 36 % 04/21/21 23:23 Sodium 140 mmol/L (137-145) 04/25/21 04:45 Potassium 4.2 mmol/L (3.6-5.0) 04/25/21 04:45 Chloride 105.2 mmol/L (98-107) 04/25/21 04:45 Carbon Dioxide 21 mmol/L (22-30) L 04/25/21 04:45 Anion Gap 18 mmol/L 04/25/21 04:45 BUN 16 mg/dL (7-17) 04/25/21 04:45 Creatinine 0.5 mg/dL (0.6-1.2) L 04/25/21 04:45 Estimated GFR > 60 ml/min 04/25/21 04:45 BUN/Creatinine Ratio 32 % 04/25/21 04:45 Glucose 322 mg/dL (65-100) H 04/25/21 04:45 POC Glucose 146 mg/dL (70-105) H 04/24/21 22:34 Hemoglobin A1c 9.7 % (4-6) H 04/22/21 13:05 Lactic Acid 1.80 mmol/L (0.7-2.0) 04/21/21 21:39 Calcium 8.6 mg/dL (8.4-10.2) 04/25/21 04:45 Phosphorus 4.20 mg/dL (2.5-4.5) 04/22/21 13:05 Magnesium 1.90 mg/dL (1.7-2.3) 04/22/21 13:05 Ferritin 399.4 ng/mL (10.0-200.0) H 04/21/21 21:39 Total Bilirubin 0.70 mg/dL (0.1-1.2) 04/25/21 04:45 AST 21 units/L (5-40) 04/25/21 04:45 ALT 17 units/L (7-56) 04/25/21 04:45 Alkaline Phosphatase 89 units/L (35-129) 04/25/21 04:45 Lactate Dehydrogenase 498 units/L (91-180) H 04/21/21 21:39 Lactate Dehydrogenase 509 units/L (91-180) H 04/21/21 21:39 Troponin T < 0.010 ng/mL (0.00-0.029) 04/21/21 21:39 C-Reactive Protein 18.70 mg/dL (0.00-1.30) H 04/21/21 21:39 C-Reactive Protein 19.00 mg/dL (0.00-1.30) H 04/21/21 21:39 Total Protein 6.0 g/dL (6.3-8.2) L 04/25/21 04:45 Albumin 2.9 g/dL (3.9-5) L 04/25/21 04:45 Albumin/Globulin Ratio 0.9 % 04/25/21 04:45 Procalcitonin 0.08 ng/mL (<0.15) 04/21/21 21:39 Urine Color Yellow (Yellow) 04/22/21 01:15 Urine Turbidity Clear (Clear) 04/22/21 01:15 Urine pH 5.0 (5.0-7.0) 04/22/21 01:15 Ur Specific [place] 1.054 (1.003-1.030) H 04/22/21 01:15 Urine Protein 30 mg/dl mg/dL (Negative) 04/22/21 01:15 Urine Glucose (UA) >=500 mg/dL (Negative) 04/22/21 01:15 Urine Ketones 80 mg/dL (Negative) 04/22/21 01:15 Urine Blood Neg (Negative) 04/22/21 01:15 Urine Nitrite Neg (Negative) 04/22/21 01:15 Ur Reducing Substances Not Reportable 04/22/21 01:15 Urine Bilirubin Neg (Negative) 04/22/21 01:15 Urine Ictotest Not Reportable 04/22/21 01:15 Urine Urobilinogen < 2.0 mg/dL (<2.0) 04/22/21 01:15 Ur Leukocyte Esterase Sm (Negative) 04/22/21 01:15 Urine WBC (Auto) 20.0 /HPF (0.0-6.0) H 04/22/21 01:15 Urine RBC (Auto) 4.0 /HPF (0.0-6.0) 04/22/21 01:15 U Epithel Cells (Auto) 2.0 /HPF (0-13.0) 04/22/21 01:15 Urine Bacteria (Auto) 3+ /HPF (Negative) 04/22/21 01:15 Urine Yeast (Budding) Few /HPF 04/22/21 01:15 Coronavirus (PCR) Negative (Negative) 04/24/21 09:25 Microbiology: Microbiology 04/21/21 21:39 Peripheral/Venous Blood Culture - Preliminary NO GROWTH AFTER 72 HOURS 04/21/21 21:54 Peripheral/Venous Blood Culture - Preliminary NO GROWTH AFTER 72 HOURS 04/22/21 01:15 Urine,Clean Catch Urine Culture - Final Active Medications - Current Medications Current Medications: Generic Name Dose Route Start Last Admin Trade Name Freq PRN Reason Stop Dose Admin Acetaminophen 650 mg 04/22/21 01:39 Acetaminophen 325 Mg Tab PO Q4H PRN Pain MILD(1-3)/Fever >100.5/YUSUF Albuterol 2.5 mg 04/22/21 01:39 Albuterol 2.5 Mg/3 Ml Nebu IH Q4HRT PRN Shortness Of Breath Albuterol/Ipratropium 1 ampul 04/24/21 08:00 04/24/21 22:44 Ipratropium/Albuterol Sulfate 3 Ml Ampul.Neb IH Not Given TIDRT TRAY Dextrose 0 ml 04/22/21 01:39 Dextrose 50% In Water (25gm) 50 Ml Syringe IV Q30MIN PRN Hypoglycemia Protocol Enoxaparin Sodium 90 mg 04/22/21 20:00 04/24/21 20:00 Enoxaparin 100 Mg/1 Ml Inj SUB-Q 90 mg Q12H TRAY Administration Protocol Famotidine 20 mg 04/22/21 10:00 04/24/21 22:45 Famotidine 20 Mg Tab PO Not Given BID [facility] Hydralazine HCl 10 mg 04/22/21 01:42 Hydralazine 20 Mg/1 Ml Inj IV Q6H PRN Blood Pressure Hydromorphone HCl 0.5 mg 04/22/21 01:39 Hydromorphone 1 Mg/1 Ml Inj IV Q3H PRN Pain , Severe (7-10) Insulin Human Regular 100 100 mls @ 1 mls/hr 04/22/21 14:00 04/24/21 10:37 units/ Sodium Chloride IV 2 units/hr TITR TRAY 2 mls/hr Titration Protocol 1 UNITS/HR Potassium Chloride/Dextrose/Sod Cl 20 meq in 1,000 mls @ 125 mls/hr 04/23/21 19:00 04/24/21 14:30 D5w/0.45% Nacl/Kcl 20 Meq IV 125 mls/hr DIRECT [facility] Infusion Insulin Glargine 10 units 04/24/21 22:00 04/24/21 22:00 Insulin Glargine 100 Units/Ml SUB-Q Not Given QHS [facility] Insulin Human Lispro 0 unit 04/22/21 07:30 04/24/21 22:43 Insulin Lispro 100 Unit/Ml SUB-Q Not Given ACHS [facility] Protocol Insulin Human Regular 5 units 04/24/21 16:30 04/24/21 22:38 Insulin Regular, Human 100 Units/1 Ml SUB-Q Not Given ACHS [facility] Lisinopril 5 mg 04/22/21 10:00 04/24/21 13:02 Lisinopril 5 Mg Tab PO 5 mg QDAY [facility] Administration Morphine Sulfate 2 mg 04/22/21 01:39 Morphine 2 Mg/1 Ml Inj IV Q4H PRN Pain, Moderate (4-6) Ondansetron HCl 4 mg 04/22/21 01:39 Ondansetron 4 Mg/2 Ml Inj IV Q8H PRN Nausea And Vomiting Sodium Chloride 10 ml 04/22/21 10:00 04/24/21 22:00 Sodium Chloride 0.9% 10 Ml Flush Syringe IV 10 ml BID TRAY Administration Sodium Chloride 10 ml 04/22/21 01:39 Sodium Chloride 0.9% 10 Ml Flush Syringe IV PRN PRN LINE FLUSH Nutrition/Malnutrition Assess - Dietary Evaluation Nutrition/Malnutrition Findings: Nutrition Notes Start: 04/22/21 08:44 Freq: Status: Active Protocol: Document 04/22/21 08:44 JOSE (Rec: 04/22/21 08:48 JOSE [id number]) Nutrition Notes Need for Assessment generated from: MD Order,Education Initial or Follow up Brief Note Current Diet Cardiac/Consistent Carbohydrates Diet (since B ). Height 5 ft 6 in Weight 90.718 kg [place] Body Weight (kg) 59.09 BMI 32.3 Weight change and time frame None reported at admission. Weight Status Obese Subjective/Other Information RD consult for Nutrition Education. Pt still on ED, not a candidate for Nutrition Education at the time, will assess feasibility on F/U. Percent of energy/protein needs met: Prescribed Cardiac/Consistent Carbohydrates Diet provides for energy/protein needs (1, 977 Kcal/86 g) during LOS. Nutrition Intervention Follow-Up By: 04/29/21 Additional Comments Nutrition education will be provided on F/U if feasible. Continue monitoring food tolerance, %PO intake of meals , and BM.
[2021-04-25] MEDS ORDERED: INSULIN GLARGINE 100 UNITS/ML SUB-Q ONE (08:30)
[2021-04-25] MEDS: IPRATROPIUM/ALBUTEROL SULFATE 3 ML AMPUL.NEB IH SCH ×5 (09:00→21:18)
--- NOTE | 2021-04-25 10:57 | Progress Note ---
Assessment and Plan 70 y/o female with acute respiratory failure secondary to pulmonary embolism and DKA resolved. 04/25/21: Per patient had been in a car for more than 4 hours. Denies pain or swelling in legs. Need to check doppler studies. If DVT present then this is likely the cause of PE and patient can have definitive time line for anticoagulation. If not, then see recs below from 04/24. Wean FiO2 as tolerated. 04/24/21: If not repeat covid testing needs hypercoaguable work up. Suggest sending the following now: Anti thrombin 3, Prothombin gene mutation, factor V leiden and homocysteine levels. Cannot send Protein C and S during acute VTE. Also need to make sure she has had the proper [employer]PUT[employer] SYSTEM[employer] INFORMATION [employer] and age appropriate related health screening for malignancy (pap, colonoscopy, mammogram, etc). Wean FiO2 as tolerated for sats >88%. Will need ambulatory test prior to discharge. Will continue to follow. Gap is 20 measured and 16 when calculated. Anticoagulation for PE. If COVID negative needs hypercoag work up. LE dopplers Should be able to downgrade to floor, which one pending COVID testing. Subjective Date of service: 04/25/21 Interval history: No acute events. Finally got a floor bed. Objective Vital Signs - 12hr 04/24/21 04/24/21 04/24/21 23:01 23:15 23:31 Pulse Rate 82 80 81 Pulse Rate [ Anterior] Respiratory 15 18 20 Rate Respiratory Rate [Anterior] Blood Pressure 149/77 149/77 149/77 O2 Sat by Pulse 97 99 99 Oximetry 04/24/21 04/25/21 04/25/21 23:45 00:01 00:15 Pulse Rate 80 78 79 Pulse Rate [ Anterior] Respiratory 16 18 24 Rate Respiratory Rate [Anterior] Blood Pressure 149/77 155/72 155/72 O2 Sat by Pulse 99 98 97 Oximetry 04/25/21 04/25/21 04/25/21 00:31 00:45 01:01 Pulse Rate 73 73 73 Pulse Rate [ Anterior] Respiratory 16 20 17 Rate Respiratory Rate [Anterior] Blood Pressure 155/72 155/72 168/78 O2 Sat by Pulse 99 98 98 Oximetry 04/25/21 04/25/21 04/25/21 01:15 01:31 01:45 Pulse Rate 70 71 71 Pulse Rate [ Anterior] Respiratory 18 20 19 Rate Respiratory Rate [Anterior] Blood Pressure 168/78 168/78 168/78 O2 Sat by Pulse 97 97 97 Oximetry 04/25/21 04/25/21 04/25/21 02:01 02:15 02:31 Pulse Rate 73 70 69 Pulse Rate [ Anterior] Respiratory 20 17 17 Rate Respiratory Rate [Anterior] Blood Pressure 151/69 151/69 151/69 O2 Sat by Pulse 97 97 97 Oximetry 04/25/21 04/25/21 04/25/21 02:45 03:01 03:15 Pulse Rate 68 67 69 Pulse Rate [ Anterior] Respiratory 17 17 17 Rate Respiratory Rate [Anterior] Blood Pressure 151/69 138/65 138/65 O2 Sat by Pulse 97 98 98 Oximetry 04/25/21 04/25/21 04/25/21 03:31 03:45 04:00 Pulse Rate 66 71 72 Pulse Rate [ Anterior] Respiratory 16 18 22 Rate Respiratory Rate [Anterior] Blood Pressure 138/65 138/65 182/83 O2 Sat by Pulse 97 95 95 Oximetry 04/25/21 04/25/21 04/25/21 06:00 06:15 06:31 Pulse Rate Pulse Rate [ Anterior] Respiratory Rate Respiratory Rate [Anterior] Blood Pressure 153/71 153/71 153/71 O2 Sat by Pulse 98 98 98 Oximetry 04/25/21 04/25/21 04/25/21 06:45 07:00 07:01 Pulse Rate Pulse Rate [ Anterior] Respiratory Rate Respiratory Rate [Anterior] Blood Pressure 153/71 155/80 O2 Sat by Pulse 98 98 98 Oximetry 04/25/21 04/25/21 04/25/21 07:15 07:31 07:45 Pulse Rate Pulse Rate [ Anterior] Respiratory Rate Respiratory Rate [Anterior] Blood Pressure 155/80 155/80 155/80 O2 Sat by Pulse 98 98 98 Oximetry 04/25/21 04/25/21 08:59 09:01 Pulse Rate Pulse Rate [ 83 Anterior] Respiratory Rate Respiratory 18 Rate [Anterior] Blood Pressure O2 Sat by Pulse 98 Oximetry CBC and BMP: 04/26/21 03:59 04/26/21 03:59 ABG, PT/INR, D-dimer: ABG ABG pH 7.358 pH Units (7.350-7.450) 04/21/21 23:23 ABG pCO2 25.4 mm Hg 04/21/21 23:23 ABG pO2 79.4 mm Hg (80.0-90.0) L 04/21/21 23:23 ABG O2 Saturation 95.6 % (95.0-99.0) 04/21/21 23:23 PT/INR, D-dimer PT 15.5 Sec. (12.2-14.9) H 04/21/21 21:39 INR 1.11 (0.87-1.13) 04/21/21 21:39 D-Dimer > 28075 ng/mlDDU (0-234) H 04/21/21 21:39 Abnormal lab findings: Abnormal Labs 04/21/21 04/21/21 04/21/21 21:39 21:39 21:39 MCH Seg Neuts % (Manual) Lymphocytes % (Manual) Seg Neutrophils # Man Lymphocytes # (Manual) PT 15.5 H D-Dimer > 37807 H ABG pO2 ABG HCO3 ABG Base Excess ABG Hemoglobin Oxyhemoglobin Sodium Chloride Carbon Dioxide BUN Creatinine Glucose 439 H POC Glucose Hemoglobin A1c Calcium Ferritin 399.4 H Lactate Dehydrogenase 509 H C-Reactive Protein 19.00 H Total Protein Albumin Ur Specific [place] Urine WBC (Auto) 04/21/21 04/21/21 04/21/21 21:39 21:39 21:39 MCH Seg Neuts % (Manual) 89.0 H Lymphocytes % (Manual) 8.0 L Seg Neutrophils # Man 9.1 H Lymphocytes # (Manual) 0.8 L PT D-Dimer ABG pO2 ABG HCO3 ABG Base Excess ABG Hemoglobin Oxyhemoglobin Sodium 134 L Chloride 93.8 L Carbon Dioxide 16 L BUN 20 H Creatinine Glucose 430 H 428 H POC Glucose Hemoglobin A1c Calcium Ferritin Lactate Dehydrogenase 498 H C-Reactive Protein 18.70 H Total Protein Albumin 3.5 L Ur Specific [place] Urine WBC (Auto) 04/21/21 04/22/21 04/22/21 23:23 01:15 09:16 MCH Seg Neuts % (Manual) Lymphocytes % (Manual) Seg Neutrophils # Man Lymphocytes # (Manual) PT D-Dimer ABG pO2 79.4 L ABG HCO3 14.0 L ABG Base Excess -10.0 L ABG Hemoglobin 11.2 L Oxyhemoglobin 94.4 L Sodium Chloride Carbon Dioxide BUN Creatinine Glucose POC Glucose 532 H Hemoglobin A1c Calcium Ferritin Lactate Dehydrogenase C-Reactive Protein Total Protein Albumin Ur Specific [place] 1.054 H Urine WBC (Auto) 20.0 H 04/22/21 04/22/21 04/22/21 12:07 13:05 13:05 MCH Seg Neuts % (Manual) Lymphocytes % (Manual) Seg Neutrophils # Man Lymphocytes # (Manual) PT D-Dimer ABG pO2 ABG HCO3 ABG Base Excess ABG Hemoglobin Oxyhemoglobin Sodium 132 L Chloride 92.7 L Carbon Dioxide 8 L* D BUN 28 H Creatinine Glucose 624 H* POC Glucose > 600 H Hemoglobin A1c 9.7 H Calcium Ferritin Lactate Dehydrogenase C-Reactive Protein Total Protein Albumin Ur Specific [place] Urine WBC (Auto) 04/22/21 04/22/21 04/22/21 15:01 17:59 20:10 MCH Seg Neuts % (Manual) Lymphocytes % (Manual) Seg Neutrophils # Man Lymphocytes # (Manual) PT D-Dimer ABG pO2 ABG HCO3 ABG Base Excess ABG Hemoglobin Oxyhemoglobin Sodium 131 L 136 L Chloride 95.8 L Carbon Dioxide 9 L* 11 L BUN 27 H 24 H Creatinine Glucose 558 H* 435 H POC Glucose 317 H Hemoglobin A1c Calcium Ferritin Lactate Dehydrogenase C-Reactive Protein Total Protein Albumin 3.2 L Ur Specific [place] Urine WBC (Auto) 04/22/21 04/23/21 04/23/21 23:16 02:32 05:18 MCH 27 L Seg Neuts % (Manual) 99.0 H Lymphocytes % (Manual) 0 L Seg Neutrophils # Man 10.5 H Lymphocytes # (Manual) 0.0 L PT D-Dimer ABG pO2 ABG HCO3 ABG Base Excess ABG Hemoglobin Oxyhemoglobin Sodium Chloride Carbon Dioxide 18 L D BUN 24 H Creatinine Glucose 252 H POC Glucose 131 H Hemoglobin A1c Calcium Ferritin Lactate Dehydrogenase C-Reactive Protein Total Protein Albumin Ur Specific [place] Urine WBC (Auto) 04/23/21 04/23/21 04/23/21 05:18 06:18 07:38 MCH Seg Neuts % (Manual) Lymphocytes % (Manual) Seg Neutrophils # Man Lymphocytes # (Manual) PT D-Dimer ABG pO2 ABG HCO3 ABG Base Excess ABG Hemoglobin Oxyhemoglobin Sodium Chloride Carbon Dioxide 17 L BUN 23 H Creatinine Glucose 240 H POC Glucose 285 H 325 H Hemoglobin A1c Calcium Ferritin Lactate Dehydrogenase C-Reactive Protein Total Protein Albumin 3.2 L Ur Specific [place] Urine WBC (Auto) 04/23/21 04/23/2104/23/22 09:51 11:26 13:23 MCH Seg Neuts % (Manual) Lymphocytes % (Manual) Seg Neutrophils # Man Lymphocytes # (Manual) PT D-Dimer ABG pO2 ABG HCO3 ABG Base Excess ABG Hemoglobin Oxyhemoglobin Sodium Chloride Carbon Dioxide BUN Creatinine Glucose POC Glucose 348 H 324 H 257 H Hemoglobin A1c Calcium Ferritin Lactate Dehydrogenase C-Reactive Protein Total Protein Albumin Ur Specific [place] Urine WBC (Auto) 04/23/21 04/23/21 04/23/21 14:31 15:27 16:18 MCH Seg Neuts % (Manual) Lymphocytes % (Manual) Seg Neutrophils # Man Lymphocytes # (Manual) PT D-Dimer ABG pO2 ABG HCO3 ABG Base Excess ABG Hemoglobin Oxyhemoglobin Sodium Chloride 107.3 H Carbon Dioxide 20 L BUN 25 H Creatinine Glucose 214 H POC Glucose 220 H 203 H Hemoglobin A1c Calcium Ferritin Lactate Dehydrogenase C-Reactive Protein Total Protein Albumin Ur Specific [place] Urine WBC (Auto) 04/23/21 04/23/21 04/23/21 18:22 18:33 20:10 MCH Seg Neuts % (Manual) Lymphocytes % (Manual) Seg Neutrophils # Man Lymphocytes # (Manual) PT D-Dimer ABG pO2 ABG HCO3 ABG Base Excess ABG Hemoglobin Oxyhemoglobin Sodium Chloride 109.8 H Carbon Dioxide 20 L BUN 25 H Creatinine Glucose 215 H POC Glucose 178 H 211 H Hemoglobin A1c Calcium Ferritin Lactate Dehydrogenase C-Reactive Protein Total Protein Albumin Ur Specific [place] Urine WBC (Auto) 04/23/21 04/23/21 04/23/21 21:19 22:27 23:32 MCH Seg Neuts % (Manual) Lymphocytes % (Manual) Seg Neutrophils # Man Lymphocytes # (Manual) PT D-Dimer ABG pO2 ABG HCO3 ABG Base Excess ABG Hemoglobin Oxyhemoglobin Sodium Chloride Carbon Dioxide BUN Creatinine Glucose POC Glucose 215 H 186 H 152 H Hemoglobin A1c Calcium Ferritin Lactate Dehydrogenase C-Reactive Protein Total Protein Albumin Ur Specific [place] Urine WBC (Auto) 04/23/21 04/24/21 04/24/21 23:53 02:37 03:55 MCH Seg Neuts % (Manual) Lymphocytes % (Manual) Seg Neutrophils # Man Lymphocytes # (Manual) PT D-Dimer ABG pO2 ABG HCO3 ABG Base Excess ABG Hemoglobin Oxyhemoglobin Sodium Chloride 111.0 H Carbon Dioxide 20 L BUN 24 H Creatinine 0.5 L Glucose 156 H POC Glucose 111 H 111 H Hemoglobin A1c Calcium 8.3 L Ferritin Lactate Dehydrogenase C-Reactive Protein Total Protein Albumin Ur Specific [place] Urine WBC (Auto) 04/24/21 04/24/21 04/24/21 04:08 06:28 09:16 MCH Seg Neuts % (Manual) Lymphocytes % (Manual) Seg Neutrophils # Man Lymphocytes # (Manual) PT D-Dimer ABG pO2 ABG HCO3 ABG Base Excess ABG Hemoglobin Oxyhemoglobin Sodium Chloride 108.9 H 111.1 H Carbon Dioxide 21 L BUN 22 H 19 H Creatinine 0.5 L Glucose 114 H 153 H POC Glucose 129 H Hemoglobin A1c Calcium Ferritin Lactate Dehydrogenase C-Reactive Protein Total Protein 5.9 L Albumin 3.1 L Ur Specific [place] Urine WBC (Auto) 04/24/21 04/24/21 04/24/21 09:36 10:30 11:53 MCH Seg Neuts % (Manual) Lymphocytes % (Manual) Seg Neutrophils # Man Lymphocytes # (Manual) PT D-Dimer ABG pO2 ABG HCO3 ABG Base Excess ABG Hemoglobin Oxyhemoglobin Sodium Chloride 111.0 H Carbon Dioxide 21 L BUN Creatinine 0.5 L Glucose 190 H POC Glucose 134 H 122 H Hemoglobin A1c Calcium 8.3 L Ferritin Lactate Dehydrogenase C-Reactive Protein Total Protein Albumin Ur Specific [place] Urine WBC (Auto) 04/24/21 04/24/21 04/24/21 12:43 14:34 18:30 MCH Seg Neuts % (Manual) Lymphocytes % (Manual) Seg Neutrophils # Man Lymphocytes # (Manual) PT D-Dimer ABG pO2 ABG HCO3 ABG Base Excess ABG Hemoglobin Oxyhemoglobin Sodium Chloride 107.7 H Carbon Dioxide BUN Creatinine 0.5 L Glucose 201 H POC Glucose 141 H 352 H Hemoglobin A1c Calcium Ferritin Lactate Dehydrogenase C-Reactive Protein Total Protein Albumin Ur Specific [place] Urine WBC (Auto) 04/24/21 04/25/21 04/25/21 22:34 04:45 10:16 MCH Seg Neuts % (Manual) Lymphocytes % (Manual) Seg Neutrophils # Man Lymphocytes # (Manual) PT D-Dimer ABG pO2 ABG HCO3 ABG Base Excess ABG Hemoglobin Oxyhemoglobin Sodium Chloride Carbon Dioxide 21 L BUN Creatinine 0.5 L Glucose 322 H POC Glucose 146 H 394 H Hemoglobin A1c Calcium Ferritin Lactate Dehydrogenase C-Reactive Protein Total Protein 6.0 L Albumin 2.9 L Ur Specific [place] Urine WBC (Auto)
[2021-04-25] MEDS: INSULIN LISPRO 100 UNIT/ML SUB-Q SCH ×4 (11:16→22:00)
[2021-04-25] MEDS: LISINOPRIL 5 MG TAB PO SCH (11:17)
[2021-04-25] MEDS: INSULIN REGULAR, HUMAN 100 UNITS/1 ML SUB-Q SCH ×4 (11:17→22:00)
[2021-04-25] MEDS: FAMOTIDINE 20 MG TAB PO SCH ×2 (11:17→22:01)
[2021-04-25] MEDS: ENOXAPARIN 100 MG/1 ML INJ SUB-Q SCH ×2 (11:17→22:03)
[2021-04-25] MEDS: INSULIN GLARGINE 100 UNITS/ML SUB-Q SCH (22:01)
[2021-04-26 05:49] LABS: Basophils % (Auto) 0.3 % (0.0-1.8); Eosinophils # (Auto) 0.1 K/mm3 (0.0-0.4); Eosinophils % (Auto) 1.1 % (0.0-4.3); Hematocrit 35.3 % (30.3-42.9); Hemoglobin 11.4 gm/dl (10.1-14.3); Lymphocytes # (Auto) 0.9 K/mm3 (1.2-5.4); Lymphocytes % (Auto) 16.3 % (13.4-35.0); Mean Corpuscular HGB Conc 32 % (30-34); Mean Corpuscular Volume 88 fl (79-97); Monocytes # (Auto) 0.5 K/mm3 (0.0-0.8); Monocytes % (Auto) 10.1 % (0.0-7.3); Platelet Count 282 K/mm3 (140-440); Red Blood Count 4.02 M/mm3 (3.65-5.03); Red Cell Distribution Width 13.5 % (13.2-15.2)
[2021-04-26 06:05] LABS: Blood Urea Nitrogen 22 mg/dL (7-17); Hemolysis Index 2
[2021-04-26 06:15] LABS: BUN/Creatinine Ratio 37
[2021-04-26] MEDS: INSULIN LISPRO 100 UNIT/ML SUB-Q SCH ×4 (08:37→22:29)
[2021-04-26] MEDS: IPRATROPIUM/ALBUTEROL SULFATE 3 ML AMPUL.NEB IH SCH ×3 (08:39→20:20)
[2021-04-26] MEDS: INSULIN REGULAR, HUMAN 100 UNITS/1 ML SUB-Q SCH ×4 (09:28→22:29)
[2021-04-26] MEDS: LISINOPRIL 5 MG TAB PO SCH (09:30)
[2021-04-26] MEDS: FAMOTIDINE 20 MG TAB PO SCH ×2 (09:30→22:28)
[2021-04-26] MEDS: ENOXAPARIN 100 MG/1 ML INJ SUB-Q SCH (09:31)
--- NOTE | 2021-04-26 09:41 | Progress Note ---
Assessment and Plan Assessment and plan: COVID-19 x2 negative; 04/22/2021 and 04/24/2021 #Acute respiratory failure with hypoxia Multifactorial between pulmonary embolism and suspected COVID-19 pneumonia -COVID PCR re ordered -CTA chest demonstrates pulmonary embolism, patchy multifocal infiltrates noted. Currently on supplemental oxygen nasal cannula 4 L/min PCCM consulted ID consulted #Pulmonary embolism -No prior history of VTE. Possibly due to underlying COVID disease process -Anticoagulation with therapeutic Lovenox Transition to Eliquis, Continue oxygen #Bilateral Pneumonia - CTA findings as above - suspect viral etiology with high suspicion for covid - hold off on abx for now due to low procal - supplemental O2 as above - may restart decadron and consider experimental therapies if repeat covid is negative as well. ID pulmonary following #Severe sepsis - bcx/ucx/scx - empiric abx for cap coverage d/c due to normal procal. - decadron d/c, will resume if repeat covid + - ID consulted on admission #Person under investigation for COVID 19 PNA -elevated inflammatory markers -CTA chest highly suspicious for findings consistent with COVID-19 pneumonia COVID-19 RT-PCR negative on 04/22, suspect this was a false negative. repeat covid 19 rt pcr ordered #Diabetic ketoacidosis -Likely precipitated by Decadron/underlying infection - gap: 17 -Currently on insulin gtt. - Fluids with d5-1/2 NS - serial bmp q4hr. - CCM consult #Type 2 diabetes with hyperglycemia -home regimen: 20 units insulin N qAM, INsulin R 10 units with meals +SSI. patient makes adjustments based on CGM readings - A1c: 9.7 - management as above. May need adjustment of PM insulin due to elevated BG in evenings. - can recommend optimization of home regimen on discharge. #Syncope -Could be explained by pulmonary embolism, initial cardiac troponin 0.01 General debility; PT and OT Follow-up PT and OT evaluation recommendations Possible discharge home with home health tomorrow if stable History Interval history: Seen and examined the patient at the bedside Patient's chart and medications reviewed No new events reported by nursing staff On 2 L nasal cannula oxygen Hospitalist Physical - Constitutional Vitals: Temp Pulse Resp BP Pulse Ox 98.6 F 97 H 18 171/75 94 04/26/21 07:48 04/26/21 08:00 04/26/21 08:00 04/26/21 07:48 04/26/21 08:43 General appearance: Present: no acute distress, well-nourished - EENT Eyes: Present: PERRL, EOM intact - Neck Neck: Present: supple, normal ROM - Respiratory Respiratory effort: normal Respiratory: bilateral: diminished, negative: rales, rhonchi, wheezing - Cardiovascular Rhythm: regular Heart Sounds: Present: S1 & S2 - Extremities Extremities: no ischemia, No edema - Abdominal General gastrointestinal: soft, non-tender, non-distended, normal bowel sounds - Integumentary Integumentary: Present: clear, warm - Psychiatric Psychiatric: appropriate mood/affect, cooperative - Neurologic Neurologic: moves all extremities HEART Score - HEART Score Troponin: Troponin T < 0.010 ng/mL (0.00-0.029) 04/21/21 21:39 Results - Labs CBC & Chem 7: 04/26/21 03:59 04/26/21 03:59 Labs: Laboratory Last Values WBC 5.3 K/mm3 (4.5-11.0) 04/26/21 03:59 RBC 4.02 M/mm3 (3.65-5.03) 04/26/21 03:59 Hgb 11.4 gm/dl (10.1-14.3) 04/26/21 03:59 Hct 35.3 % (30.3-42.9) 04/26/21 03:59 MCV 88 fl (79-97) 04/26/21 03:59 MCH 28 pg (28-32) 04/26/21 03:59 MCHC 32 % (30-34) 04/26/21 03:59 RDW 13.5 % (13.2-15.2) 04/26/21 03:59 Plt Count 282 K/mm3 (140-440) 04/26/21 03:59 Lymph % (Auto) 16.3 % (13.4-35.0) 04/26/21 03:59 [place] % (Auto) 10.1 % (0.0-7.3) H 04/26/21 03:59 Eos % (Auto) 1.1 % (0.0-4.3) 04/26/21 03:59 Baso % (Auto) 0.3 % (0.0-1.8) 04/26/21 03:59 Lymph # (Auto) 0.9 K/mm3 (1.2-5.4) L 04/26/21 03:59 [place] # (Auto) 0.5 K/mm3 (0.0-0.8) 04/26/21 03:59 Eos # (Auto) 0.1 K/mm3 (0.0-0.4) 04/26/21 03:59 Baso # (Auto) 0.0 K/mm3 (0.0-0.1) 04/26/21 03:59 Add Manual Diff Complete 04/23/21 05:18 Total Counted 100 04/23/21 05:18 Seg Neutrophils % 72.2 % (40.0-70.0) H 04/26/21 03:59 Seg Neuts % (Manual) 99.0 % (40.0-70.0) H 04/23/21 05:18 Band Neutrophils % 0 % 04/23/21 05:18 Lymphocytes % (Manual) 0 % (13.4-35.0) L 04/23/21 05:18 Reactive Lymphs % (Man) 0 % 04/23/21 05:18 Monocytes % (Manual) 1.0 % (0.0-7.3) 04/23/21 05:18 Eosinophils % (Manual) 0 % (0.0-4.3) 04/23/21 05:18 Basophils % (Manual) 0 % (0.0-1.8) 04/23/21 05:18 Metamyelocytes % 0 % 04/23/21 05:18 Myelocytes % 0 % 04/23/21 05:18 Promyelocytes % 0 % 04/23/21 05:18 Blast Cells % 0 % 04/23/21 05:18 Nucleated RBC % Not Reportable 04/23/21 05:18 Seg Neutrophils # 3.9 K/mm3 (1.8-7.7) 04/26/21 03:59 Seg Neutrophils # Man 10.5 K/mm3 (1.8-7.7) H 04/23/21 05:18 Band Neutrophils # 0.0 K/mm3 04/23/21 05:18 Lymphocytes # (Manual) 0.0 K/mm3 (1.2-5.4) L 04/23/21 05:18 Abs React Lymphs (Man) 0.0 K/mm3 04/23/21 05:18 Monocytes # (Manual) 0.1 K/mm3 (0.0-0.8) 04/23/21 05:18 Eosinophils # (Manual) 0.0 K/mm3 (0.0-0.4) 04/23/21 05:18 Basophils # (Manual) 0.0 K/mm3 (0.0-0.1) 04/23/21 05:18 Metamyelocytes # 0.0 K/mm3 04/23/21 05:18 Myelocytes # 0.0 K/mm3 04/23/21 05:18 Promyelocytes # 0.0 K/mm3 04/23/21 05:18 Blast Cells # 0.0 K/mm3 04/23/21 05:18 WBC Morphology Not Reportable 04/23/21 05:18 Hypersegmented Neuts Not Reportable 04/23/21 05:18 Hyposegmented Neuts Not Reportable 04/23/21 05:18 Hypogranular Neuts Not Reportable 04/23/21 05:18 Smudge Cells Not Reportable 04/23/21 05:18 Toxic Granulation Not Reportable 04/23/21 05:18 Toxic Vacuolation Not Reportable 04/23/21 05:18 Dohle Bodies Not Reportable 04/23/21 05:18 Pelger-Huet Anomaly Not Reportable 04/23/21 05:18 Florentino Rods Not Reportable 04/23/21 05:18 Platelet Estimate Consistent w auto 04/23/21 05:18 Clumped Platelets Not Reportable 04/23/21 05:18 Plt Clumps, EDTA Not Reportable 04/23/21 05:18 Large Platelets Not Reportable 04/23/21 05:18 Giant Platelets Not Reportable 04/23/21 05:18 Platelet Satelliting Not Reportable 04/23/21 05:18 Plt Morphology Comment Not Reportable 04/23/21 05:18 RBC Morphology Normal 04/23/21 05:18 Dimorphic RBCs Not Reportable 04/23/21 05:18 Polychromasia Not Reportable 04/23/21 05:18 Hypochromasia Not Reportable 04/23/21 05:18 Poikilocytosis Not Reportable 04/23/21 05:18 Anisocytosis Not Reportable 04/23/21 05:18 Microcytosis Not Reportable 04/23/21 05:18 Macrocytosis Not Reportable 04/23/21 05:18 Spherocytes Not Reportable 04/23/21 05:18 Pappenheimer Bodies Not Reportable 04/23/21 05:18 Sickle Cells Not Reportable 04/23/21 05:18 Target Cells Not Reportable 04/23/21 05:18 Tear Drop Cells Not Reportable 04/23/21 05:18 Ovalocytes Not Reportable 04/23/21 05:18 Helmet Cells Not Reportable 04/23/21 05:18 [place] Bodies Not Reportable 04/23/21 05:18 [place] Rings Not Reportable 04/23/21 05:18 [place] Cells Not Reportable 04/23/21 05:18 Bite Cells Not Reportable 04/23/21 05:18 Crenated Cell Not Reportable 04/23/21 05:18 Elliptocytes Not Reportable 04/23/21 05:18 Acanthocytes (Spur) Not Reportable 04/23/21 05:18 Rouleaux Not Reportable 04/23/21 05:18 Hemoglobin C Crystals Not Reportable 04/23/21 05:18 Schistocytes Not Reportable 04/23/21 05:18 Malaria parasites Not Reportable 04/23/21 05:18 Alex Bodies Not Reportable 04/23/21 05:18 Hem Pathologist Commnt No 04/23/21 05:18 PT 15.5 Sec. (12.2-14.9) H 04/21/21 21:39 INR 1.11 (0.87-1.13) 04/21/21 21:39 D-Dimer > 21063 ng/mlDDU (0-234) H 04/21/21 21:39 ABG pH 7.358 pH Units (7.350-7.450) 04/21/21 23:23 ABG pCO2 25.4 mm Hg 04/21/21 23:23 ABG pO2 79.4 mm Hg (80.0-90.0) L 04/21/21 23:23 ABG HCO3 14.0 mmol/L (20.0-26.0) L 04/21/21 23:23 ABG O2 Saturation 95.6 % (95.0-99.0) 04/21/21 23:23 ABG O2 Content 14.9 (0.0-44) 04/21/21 23:23 ABG Base Excess -10.0 mmol/L (-2.0-3.0) L 04/21/21 23:23 ABG Hemoglobin 11.2 gm/dl (12.0-16.0) L 04/21/21 23:23 ABG Carboxyhemoglobin 0.8 % (0.0-5.0) 04/21/21 23:23 ABG Methemoglobin 0.4 % (0.0-1.5) 04/21/21 23:23 Oxyhemoglobin 94.4 % (95.0-99.0) L 04/21/21 23:23 FiO2 36 % 04/21/21 23:23 Sodium 146 mmol/L (137-145) H 04/26/21 03:59 Potassium 3.6 mmol/L (3.6-5.0) 04/26/21 03:59 Chloride 105.7 mmol/L (98-107) 04/26/21 03:59 Carbon Dioxide 27 mmol/L (22-30) 04/26/21 03:59 Anion Gap 17 mmol/L 04/26/21 03:59 BUN 22 mg/dL (7-17) H 04/26/21 03:59 Creatinine 0.6 mg/dL (0.6-1.2) 04/26/21 03:59 Estimated GFR > 60 ml/min 04/26/21 03:59 BUN/Creatinine Ratio 37 % 04/26/21 03:59 Glucose 83 mg/dL (65-100) 04/26/21 03:59 POC Glucose 138 mg/dL (70-105) H 04/26/21 07:45 Hemoglobin A1c 9.7 % (4-6) H 04/22/21 13:05 Lactic Acid 1.80 mmol/L (0.7-2.0) 04/21/21 21:39 Calcium 9.0 mg/dL (8.4-10.2) 04/26/21 03:59 Phosphorus 4.20 mg/dL (2.5-4.5) 04/22/21 13:05 Magnesium 1.90 mg/dL (1.7-2.3) 04/22/21 13:05 Ferritin 399.4 ng/mL (10.0-200.0) H 04/21/21 21:39 Total Bilirubin 0.70 mg/dL (0.1-1.2) 04/25/21 04:45 AST 21 units/L (5-40) 04/25/21 04:45 ALT 17 units/L (7-56) 04/25/21 04:45 Alkaline Phosphatase 89 units/L (35-129) 04/25/21 04:45 Lactate Dehydrogenase 498 units/L (91-180) H 04/21/21 21:39 Lactate Dehydrogenase 509 units/L (91-180) H 04/21/21 21:39 Troponin T < 0.010 ng/mL (0.00-0.029) 04/21/21 21:39 C-Reactive Protein 18.70 mg/dL (0.00-1.30) H 04/21/21 21:39 C-Reactive Protein 19.00 mg/dL (0.00-1.30) H 04/21/21 21:39 Total Protein 6.0 g/dL (6.3-8.2) L 04/25/21 04:45 Albumin 2.9 g/dL (3.9-5) L 04/25/21 04:45 Albumin/Globulin Ratio 0.9 % 04/25/21 04:45 Procalcitonin 0.08 ng/mL (<0.15) 04/21/21 21:39 Urine Color Yellow (Yellow) 04/22/21 01:15 Urine Turbidity Clear (Clear) 04/22/21 01:15 Urine pH 5.0 (5.0-7.0) 04/22/21 01:15 Ur Specific [place] 1.054 (1.003-1.030) H 04/22/21 01:15 Urine Protein 30 mg/dl mg/dL (Negative) 04/22/21 01:15 Urine Glucose (UA) >=500 mg/dL (Negative) 04/22/21 01:15 Urine Ketones 80 mg/dL (Negative) 04/22/21 01:15 Urine Blood Neg (Negative) 04/22/21 01:15 Urine Nitrite Neg (Negative) 04/22/21 01:15 Ur Reducing Substances Not Reportable 04/22/21 01:15 Urine Bilirubin Neg (Negative) 04/22/21 01:15 Urine Ictotest Not Reportable 04/22/21 01:15 Urine Urobilinogen < 2.0 mg/dL (<2.0) 04/22/21 01:15 Ur Leukocyte Esterase Sm (Negative) 04/22/21 01:15 Urine WBC (Auto) 20.0 /HPF (0.0-6.0) H 04/22/21 01:15 Urine RBC (Auto) 4.0 /HPF (0.0-6.0) 04/22/21 01:15 U Epithel Cells (Auto) 2.0 /HPF (0-13.0) 04/22/21 01:15 Urine Bacteria (Auto) 3+ /HPF (Negative) 04/22/21 01:15 Urine Yeast (Budding) Few /HPF 04/22/21 01:15 Coronavirus (PCR) Negative (Negative) 04/24/21 09:25 Microbiology: Microbiology 04/21/21 21:39 Peripheral/Venous Blood Culture - Preliminary NO GROWTH AFTER 4 DAYS 04/21/21 21:54 Peripheral/Venous Blood Culture - Preliminary NO GROWTH AFTER 4 DAYS Love/IV: Voiding Method External Female Catheter Active Medications - Current Medications Current Medications: Generic Name Dose Route Start Last Admin Trade Name Freq PRN Reason Stop Dose Admin Acetaminophen 650 mg 04/22/21 01:39 Acetaminophen 325 Mg Tab PO Q4H PRN Pain MILD(1-3)/Fever >100.5/YUSUF Albuterol 2.5 mg 04/22/21 01:39 Albuterol 2.5 Mg/3 Ml Nebu IH Q4HRT PRN Shortness Of Breath Albuterol/Ipratropium 1 ampul 04/24/21 08:00 04/26/21 08:39 Ipratropium/Albuterol Sulfate 3 Ml Ampul.Neb IH 1 ampul TIDRT TRAY Administration Dextrose 0 ml 04/22/21 01:39 Dextrose 50% In Water (25gm) 50 Ml Syringe IV Q30MIN PRN Hypoglycemia Protocol Enoxaparin Sodium 90 mg 04/22/21 20:00 04/26/21 09:31 Enoxaparin 100 Mg/1 Ml Inj SUB-Q 90 mg Q12H TRAY Administration Protocol Famotidine 20 mg 04/22/21 10:00 04/26/21 09:30 Famotidine 20 Mg Tab PO 20 mg BID TRAY Administration Hydralazine HCl 10 mg 04/22/21 01:42 Hydralazine 20 Mg/1 Ml Inj IV Q6H PRN Blood Pressure Hydromorphone HCl 0.5 mg 04/22/21 01:39 Hydromorphone 1 Mg/1 Ml Inj IV Q3H PRN Pain , Severe (7-10) Potassium Chloride/Dextrose/Sod Cl 20 meq in 1,000 mls @ 125 mls/hr 04/23/21 19:00 04/24/21 14:30 D5w/0.45% Nacl/Kcl 20 Meq IV 125 mls/hr DIRECT TRAY Infusion Insulin Glargine 10 units 04/24/21 22:00 04/25/21 22:01 Insulin Glargine 100 Units/Ml SUB-Q 10 units QHS [facility] Administration Insulin Human Lispro 0 unit 04/22/21 07:30 04/26/21 08:37 Insulin Lispro 100 Unit/Ml SUB-Q Not Given [facility] Protocol Insulin Human Regular 5 units 04/24/21 16:30 04/26/21 09:28 Insulin Regular, Human 100 Units/1 Ml SUB-Q Not Given [facility] Lisinopril 5 mg 04/22/21 10:00 04/26/21 09:30 Lisinopril 5 Mg Tab PO 5 mg QDAY TRAY Administration Morphine Sulfate 2 mg 04/22/21 01:39 Morphine 2 Mg/1 Ml Inj IV Q4H PRN Pain, Moderate (4-6) Ondansetron HCl 4 mg 04/22/21 01:39 Ondansetron 4 Mg/2 Ml Inj IV Q8H PRN Nausea And Vomiting Sodium Chloride 10 ml 04/22/21 10:00 04/26/21 09:30 Sodium Chloride 0.9% 10 Ml Flush Syringe IV 10 ml BID TRAY Administration Sodium Chloride 10 ml 04/22/21 01:39 Sodium Chloride 0.9% 10 Ml Flush Syringe IV PRN PRN LINE FLUSH Nutrition/Malnutrition Assess - Dietary Evaluation Nutrition/Malnutrition Findings: Nutrition Notes Start: 04/22/21 08:44 Freq: Status: Active Protocol: Document 04/22/21 08:44 JOSE (Rec: 04/22/21 08:48 JOSE [email or web address]) Nutrition Notes Need for Assessment generated from: MD Order,Education Initial or Follow up Brief Note Current Diet Cardiac/Consistent Carbohydrates Diet (since B ). Height 5 ft 6 in Weight 90.718 kg [place] Body Weight (kg) 59.09 BMI 32.3 Weight change and time frame None reported at admission. Weight Status Obese Subjective/Other Information RD consult for Nutrition Education. Pt still on ED, not a candidate for Nutrition Education at the time, will assess feasibility on F/U. Percent of energy/protein needs met: Prescribed Cardiac/Consistent Carbohydrates Diet provides for energy/protein needs (1, 977 Kcal/86 g) during LOS. Nutrition Intervention Follow-Up By: 04/29/21 Additional Comments Nutrition education will be provided on F/U if feasible. Continue monitoring food tolerance, %PO intake of meals , and BM.
--- NOTE | 2021-04-26 12:48 | Progress Note ---
Assessment and Plan 70 y/o female with acute respiratory failure secondary to pulmonary embolism and DKA resolved. 04/26/21: WIll order doppler studies. Suggest switching to oral therapy for PE. Will need heme follow up. Will also need walk test to assess oxygen needs prior to discharge. 04/25/21: Per patient had been in a car for more than 4 hours. Denies pain or swelling in legs. Need to check doppler studies. If DVT present then this is likely the cause of PE and patient can have definitive time line for anticoagulation. If not, then see recs below from 04/24. Wean FiO2 as tolerated. 04/24/21: If not repeat covid testing needs hypercoaguable work up. Suggest sending the following now: Anti thrombin 3, Prothombin gene mutation, factor V leiden and homocysteine levels. Cannot send Protein C and S during acute VTE. Also need to make sure she has had the proper COMMUNICATIONS INSTRUCTOR and age appropriate related health screening for malignancy (pap, colonoscopy, mammogram, etc). Wean FiO2 as tolerated for sats >88%. Will need ambulatory test prior to discharge. Will continue to follow. Gap is 20 measured and 16 when calculated. Anticoagulation for PE. If COVID negative needs hypercoag work up. LE dopplers Should be able to downgrade to floor, which one pending COVID testing. Subjective Date of service: 04/26/21 Interval history: No acute events. Still on 2 liters. Objective Vital Signs - 12hr 04/26/21 04/26/21 04/26/21 04:46 07:48 08:00 Temperature 98.6 F Pulse Rate 86 Pulse Rate [ 97 H Anterior] Pulse Rate [ 88 From Monitor] Respiratory 18 18 Rate Respiratory 18 Rate [Anterior] Blood Pressure 149/61 171/75 O2 Sat by Pulse 93 98 Oximetry 04/26/21 04/26/21 08:43 11:09 Temperature 98.0 F Pulse Rate 89 Pulse Rate [ Anterior] Pulse Rate [ From Monitor] Respiratory 18 Rate Respiratory Rate [Anterior] Blood Pressure 141/63 O2 Sat by Pulse 94 98 Oximetry CBC and BMP: 04/26/21 03:59 04/26/21 03:59 ABG, PT/INR, D-dimer: ABG ABG pH 7.358 pH Units (7.350-7.450) 04/21/21 23:23 ABG pCO2 25.4 mm Hg 04/21/21 23:23 ABG pO2 79.4 mm Hg (80.0-90.0) L 04/21/21 23:23 ABG O2 Saturation 95.6 % (95.0-99.0) 04/21/21 23:23 PT/INR, D-dimer PT 15.5 Sec. (12.2-14.9) H 04/21/21 21:39 INR 1.11 (0.87-1.13) 04/21/21 21:39 D-Dimer > 38003 ng/mlDDU (0-234) H 04/21/21 21:39 Abnormal lab findings: Abnormal Labs 04/21/21 04/21/21 04/21/21 21:39 21:39 21:39 [facility] [place] % (Auto) Lymph # (Auto) Seg Neutrophils % Seg Neuts % (Manual) Lymphocytes % (Manual) Seg Neutrophils # Man Lymphocytes # (Manual) PT 15.5 H D-Dimer > 32804 H ABG pO2 ABG HCO3 ABG Base Excess ABG Hemoglobin Oxyhemoglobin Sodium Chloride Carbon Dioxide BUN Creatinine Glucose 439 H POC Glucose Hemoglobin A1c Calcium Ferritin 399.4 H Lactate Dehydrogenase 509 H C-Reactive Protein 19.00 H Total Protein Albumin Ur Specific [place] Urine WBC (Auto) 04/21/21 04/21/21 04/21/21 21:39 21:39 21:39 [facility] [place] % (Auto) Lymph # (Auto) Seg Neutrophils % Seg Neuts % (Manual) 89.0 H Lymphocytes % (Manual) 8.0 L Seg Neutrophils # Man 9.1 H Lymphocytes # (Manual) 0.8 L PT D-Dimer ABG pO2 ABG HCO3 ABG Base Excess ABG Hemoglobin Oxyhemoglobin Sodium 134 L Chloride 93.8 L Carbon Dioxide 16 L BUN 20 H Creatinine Glucose 430 H 428 H POC Glucose Hemoglobin A1c Calcium Ferritin Lactate Dehydrogenase 498 H C-Reactive Protein 18.70 H Total Protein Albumin 3.5 L Ur Specific [place] Urine WBC (Auto) 04/21/21 04/22/21 04/22/21 23:23 01:15 09:16 [facility] [place] % (Auto) Lymph # (Auto) Seg Neutrophils % Seg Neuts % (Manual) Lymphocytes % (Manual) Seg Neutrophils # Man Lymphocytes # (Manual) PT D-Dimer ABG pO2 79.4 L ABG HCO3 14.0 L ABG Base Excess -10.0 L ABG Hemoglobin 11.2 L Oxyhemoglobin 94.4 L Sodium Chloride Carbon Dioxide BUN Creatinine Glucose POC Glucose 532 H Hemoglobin A1c Calcium Ferritin Lactate Dehydrogenase C-Reactive Protein Total Protein Albumin Ur Specific [place] 1.054 H Urine WBC (Auto) 20.0 H 04/22/21 04/22/21 04/22/21 12:07 13:05 13:05 [facility] [place] % (Auto) Lymph # (Auto) Seg Neutrophils % Seg Neuts % (Manual) Lymphocytes % (Manual) Seg Neutrophils # Man Lymphocytes # (Manual) PT D-Dimer ABG pO2 ABG HCO3 ABG Base Excess ABG Hemoglobin Oxyhemoglobin Sodium 132 L Chloride 92.7 L Carbon Dioxide 8 L* D BUN 28 H Creatinine Glucose 624 H* POC Glucose > 600 H Hemoglobin A1c 9.7 H Calcium Ferritin Lactate Dehydrogenase C-Reactive Protein Total Protein Albumin Ur Specific [place] Urine WBC (Auto) 04/22/21 04/22/21 04/22/21 15:01 17:59 20:10 [facility] [place] % (Auto) Lymph # (Auto) Seg Neutrophils % Seg Neuts % (Manual) Lymphocytes % (Manual) Seg Neutrophils # Man Lymphocytes # (Manual) PT D-Dimer ABG pO2 ABG HCO3 ABG Base Excess ABG Hemoglobin Oxyhemoglobin Sodium 131 L 136 L Chloride 95.8 L Carbon Dioxide 9 L* 11 L BUN 27 H 24 H Creatinine Glucose 558 H* 435 H POC Glucose 317 H Hemoglobin A1c Calcium Ferritin Lactate Dehydrogenase C-Reactive Protein Total Protein Albumin 3.2 L Ur Specific [place] Urine WBC (Auto) 04/22/21 04/23/21 04/23/21 23:16 02:32 05:18 [facility]CH 27 L [place] % (Auto) Lymph # (Auto) Seg Neutrophils % Seg Neuts % (Manual) 99.0 H Lymphocytes % (Manual) 0 L Seg Neutrophils # Man 10.5 H Lymphocytes # (Manual) 0.0 L PT D-Dimer ABG pO2 ABG HCO3 ABG Base Excess ABG Hemoglobin Oxyhemoglobin Sodium Chloride Carbon Dioxide 18 L D BUN 24 H Creatinine Glucose 252 H POC Glucose 131 H Hemoglobin A1c Calcium Ferritin Lactate Dehydrogenase C-Reactive Protein Total Protein Albumin Ur Specific [place] Urine WBC (Auto) 04/23/21 04/23/21 04/23/21 05:18 06:18 07:38 [facility] [place] % (Auto) Lymph # (Auto) Seg Neutrophils % Seg Neuts % (Manual) Lymphocytes % (Manual) Seg Neutrophils # Man Lymphocytes # (Manual) PT D-Dimer ABG pO2 ABG HCO3 ABG Base Excess ABG Hemoglobin Oxyhemoglobin Sodium Chloride Carbon Dioxide 17 L BUN 23 H Creatinine Glucose 240 H POC Glucose 285 H 325 H Hemoglobin A1c Calcium Ferritin Lactate Dehydrogenase C-Reactive Protein Total Protein Albumin 3.2 L Ur Specific [place] Urine WBC (Auto) 04/23/21 04/23/21 04/23/21 09:51 11:26 13:23 [facility] [place] % (Auto) Lymph # (Auto) Seg Neutrophils % Seg Neuts % (Manual) Lymphocytes % (Manual) Seg Neutrophils # Man Lymphocytes # (Manual) PT D-Dimer ABG pO2 ABG HCO3 ABG Base Excess ABG Hemoglobin Oxyhemoglobin Sodium Chloride Carbon Dioxide BUN Creatinine Glucose POC Glucose 348 H 324 H 257 H Hemoglobin A1c Calcium Ferritin Lactate Dehydrogenase C-Reactive Protein Total Protein Albumin Ur Specific [place] Urine WBC (Auto) 04/23/21 04/23/21 04/23/21 14:31 15:27 16:18 [facility] [place] % (Auto) Lymph # (Auto) Seg Neutrophils % Seg Neuts % (Manual) Lymphocytes % (Manual) Seg Neutrophils # Man Lymphocytes # (Manual) PT D-Dimer ABG pO2 ABG HCO3 ABG Base Excess ABG Hemoglobin Oxyhemoglobin Sodium Chloride 107.3 H Carbon Dioxide 20 L BUN 25 H Creatinine Glucose 214 H POC Glucose 220 H 203 H Hemoglobin A1c Calcium Ferritin Lactate Dehydrogenase C-Reactive Protein Total Protein Albumin Ur Specific [place] Urine WBC (Auto) 04/23/21 04/23/21 04/23/21 18:22 18:33 20:10 [facility] [place] % (Auto) Lymph # (Auto) Seg Neutrophils % Seg Neuts % (Manual) Lymphocytes % (Manual) Seg Neutrophils # Man Lymphocytes # (Manual) PT D-Dimer ABG pO2 ABG HCO3 ABG Base Excess ABG Hemoglobin Oxyhemoglobin Sodium Chloride 109.8 H Carbon Dioxide 20 L BUN 25 H Creatinine Glucose 215 H POC Glucose 178 H 211 H Hemoglobin A1c Calcium Ferritin Lactate Dehydrogenase C-Reactive Protein Total Protein Albumin Ur Specific [place] Urine WBC (Auto) 04/23/21 04/23/21 04/23/21 21:19 22:27 23:32 [facility] [place] % (Auto) Lymph # (Auto) Seg Neutrophils % Seg Neuts % (Manual) Lymphocytes % (Manual) Seg Neutrophils # Man Lymphocytes # (Manual) PT D-Dimer ABG pO2 ABG HCO3 ABG Base Excess ABG Hemoglobin Oxyhemoglobin Sodium Chloride Carbon Dioxide BUN Creatinine Glucose POC Glucose 215 H 186 H 152 H Hemoglobin A1c Calcium Ferritin Lactate Dehydrogenase C-Reactive Protein Total Protein Albumin Ur Specific [place] Urine WBC (Auto) 04/23/21 04/24/21 04/24/21 23:53 02:37 03:55 [facility] [place] % (Auto) Lymph # (Auto) Seg Neutrophils % Seg Neuts % (Manual) Lymphocytes % (Manual) Seg Neutrophils # Man Lymphocytes # (Manual) PT D-Dimer ABG pO2 ABG HCO3 ABG Base Excess ABG Hemoglobin Oxyhemoglobin Sodium Chloride 111.0 H Carbon Dioxide 20 L BUN 24 H Creatinine 0.5 L Glucose 156 H POC Glucose 111 H 111 H Hemoglobin A1c Calcium 8.3 L Ferritin Lactate Dehydrogenase C-Reactive Protein Total Protein Albumin Ur Specific [place] Urine WBC (Auto) 04/24/21 04/24/21 04/24/21 04:08 06:28 09:16 [facility] [place] % (Auto) Lymph # (Auto) Seg Neutrophils % Seg Neuts % (Manual) Lymphocytes % (Manual) Seg Neutrophils # Man Lymphocytes # (Manual) PT D-Dimer ABG pO2 ABG HCO3 ABG Base Excess ABG Hemoglobin Oxyhemoglobin Sodium Chloride 108.9 H 111.1 H Carbon Dioxide 21 L BUN 22 H 19 H Creatinine 0.5 L Glucose 114 H 153 H POC Glucose 129 H Hemoglobin A1c Calcium Ferritin Lactate Dehydrogenase C-Reactive Protein Total Protein 5.9 L Albumin 3.1 L Ur Specific [place] Urine WBC (Auto) 04/24/21 04/24/21 04/24/21 09:36 10:30 11:53 [facility] [place] % (Auto) Lymph # (Auto) Seg Neutrophils % Seg Neuts % (Manual) Lymphocytes % (Manual) Seg Neutrophils # Man Lymphocytes # (Manual) PT D-Dimer ABG pO2 ABG HCO3 ABG Base Excess ABG Hemoglobin Oxyhemoglobin Sodium Chloride 111.0 H Carbon Dioxide 21 L BUN Creatinine 0.5 L Glucose 190 H POC Glucose 134 H 122 H Hemoglobin A1c Calcium 8.3 L Ferritin Lactate Dehydrogenase C-Reactive Protein Total Protein Albumin Ur Specific [place] Urine WBC (Auto) 04/24/21 04/24/21 04/24/21 12:43 14:34 18:30 [facility] [place] % (Auto) Lymph # (Auto) Seg Neutrophils % Seg Neuts % (Manual) Lymphocytes % (Manual) Seg Neutrophils # Man Lymphocytes # (Manual) PT D-Dimer ABG pO2 ABG HCO3 ABG Base Excess ABG Hemoglobin Oxyhemoglobin Sodium Chloride 107.7 H Carbon Dioxide BUN Creatinine 0.5 L Glucose 201 H POC Glucose 141 H 352 H Hemoglobin A1c Calcium Ferritin Lactate Dehydrogenase C-Reactive Protein Total Protein Albumin Ur Specific [place] Urine WBC (Auto) 04/24/21 04/25/21 04/25/21 22:34 04:45 10:16 [facility] [place] % (Auto) Lymph # (Auto) Seg Neutrophils % Seg Neuts % (Manual) Lymphocytes % (Manual) Seg Neutrophils # Man Lymphocytes # (Manual) PT D-Dimer ABG pO2 ABG HCO3 ABG Base Excess ABG Hemoglobin Oxyhemoglobin Sodium Chloride Carbon Dioxide 21 L BUN Creatinine 0.5 L Glucose 322 H POC Glucose 146 H 394 H Hemoglobin A1c Calcium Ferritin Lactate Dehydrogenase C-Reactive Protein Total Protein 6.0 L Albumin 2.9 L Ur Specific [place] Urine WBC (Auto) 04/25/21 04/25/21 04/26/21 17:19 21:20 03:59 [facility] [place] % (Auto) 10.1 H Lymph # (Auto) 0.9 L Seg Neutrophils % 72.2 H Seg Neuts % (Manual) Lymphocytes % (Manual) Seg Neutrophils # Man Lymphocytes # (Manual) PT D-Dimer ABG pO2 ABG HCO3 ABG Base Excess ABG Hemoglobin Oxyhemoglobin Sodium Chloride Carbon Dioxide BUN Creatinine Glucose POC Glucose 306 H 288 H Hemoglobin A1c Calcium Ferritin Lactate Dehydrogenase C-Reactive Protein Total Protein Albumin Ur Specific [place] Urine WBC (Auto) 04/26/21 04/26/21 04/26/21 03:59 07:45 11:05 [facility] [place] % (Auto) Lymph # (Auto) Seg Neutrophils % Seg Neuts % (Manual) Lymphocytes % (Manual) Seg Neutrophils # Man Lymphocytes # (Manual) PT D-Dimer ABG pO2 ABG HCO3 ABG Base Excess ABG Hemoglobin Oxyhemoglobin Sodium 146 H Chloride Carbon Dioxide BUN 22 H Creatinine Glucose POC Glucose 138 H 291 H Hemoglobin A1c Calcium Ferritin Lactate Dehydrogenase C-Reactive Protein Total Protein Albumin Ur Specific [place] Urine WBC (Auto)
--- NOTE | 2021-04-26 15:03 | Progress Note ---
Assessment and Plan Cultures: SARS CoV2 PCR: negative x 2 04/21/2021 blood culture: no growth A/P: 70-year-old female with hypertension, diabetes, hyperlipidemia, unvaccinated against COVID-19 was admitted with weakness, syncope, shortness of breath: #Bilateral pneumonia: COVID-19 negative x 2. Elevated inflammatory markers. Procalcitonin 0.08. CT showed PE. #Acute pulmonary embolism: On anticoagulation. #Acute hypoxic respiratory failure: On nasal cannula. Likely secondary to PE #Diabetes, uncontrolled, DKA #Obesity Recs: - repeat COVID-19 PCR also negative -Anticoagulation for PE Will sign off. Baldomero Hong MD, FACP, [facility] ([facility] O: [phone] F: [phone] Subjective Date of service: 04/26/21 Interval history: No fever. Denies any complaints. Getting leg ultrasound. On oxygen by nasal cannula. Objective - Exam Narrative Exam: Physical Exam: Constitutional: Alert, cooperative. No acute distress Head, Ears, Nose: Normocephalic, atraumatic. External ears, nose normal Eyes: Conjunctivae/corneas clear. No icterus. No ptosis. Neck: Supple, no meningeal signs Oral: mask + Cardiovascular: S1, S2 + Respiratory: Good air entry, clear to auscultation bilaterally GI: Soft, non-tender; bowel sounds normal. No peritoneal signs Musculoskeletal: No pedal edema, no cyanosis. Skin: No rash or abscess Hem/Lymphatic: No palpable cervical or supraclavicular nodes. No lymphangitis Psych: Mood ok. Affect normal Neurological: Awake, alert, oriented. No gross abnormality - Constitutional Vitals: Vital Signs Temp Pulse Resp BP Pulse Ox 98.0 F 89 18 141/63 98 04/26/21 11:09 04/26/21 11:09 04/26/21 11:09 04/26/21 11:09 04/26/21 11:09 Temperature -Last 24 Hours Temperature 98.0 F Temperature 98.6 F - Labs CBC & Chem 7: 04/26/21 03:59 04/26/21 03:59 Labs: Abnormal lab results 04/25/21 04/25/21 04/26/21 Range/Units 17:19 21:20 03:59 [place] % (Auto) 10.1 H (0.0-7.3) % Lymph # (Auto) 0.9 L (1.2-5.4) K/mm3 Seg Neutrophils % 72.2 H (40.0-70.0) % Sodium (137-145) mmol/L BUN (7-17) mg/dL POC Glucose 306 H 288 H (70-105) mg/dL 04/26/21 04/26/21 04/26/21 Range/Units 03:59 07:45 11:05 [place] % (Auto) (0.0-7.3) % Lymph # (Auto) (1.2-5.4) K/mm3 Seg Neutrophils % (40.0-70.0) % Sodium 146 H (137-145) mmol/L BUN 22 H (7-17) mg/dL POC Glucose 138 H 291 H (70-105) mg/dL
--- NOTE | 2021-04-26 15:37 | Vascular Lab Report ---
DUPLEX DOPPLER LOWER EXTREMITY VEINS, BILATERAL INDICATION / CLINICAL INFORMATION: Swelling and pain. TECHNIQUE: Duplex doppler imaging was performed through the veins of both lower extremities using heaven ous compression and other maneuvers. COMPARISON: None available. FINDINGS: RIGHT COMMON FEMORAL VEIN: Negative. RIGHT FEMORAL VEIN: Negative. RIGHT POPLITEAL VEIN: Negative. RIGHT CALF VEINS: Negative. LEFT COMMON FEMORAL VEIN: Negative. LEFT FEMORAL VEIN: Negative. LEFT POPLITEAL VEIN: Negative. LEFT CALF VEINS: Negative. ADDITIONAL FINDINGS: None. IMPRESSION: 1. No sonographic evidence for DVT in either lower extremity. Scribed by: Orly Oliva RDMS, RVT Scribed: 04/26/2021 2:29 PM I have reviewed the images, agree with this report, and edited this report as needed. Signer Name: Tal Hopkins MD Signed: 04/26/2021 3:33 PM Workstation Name: [id number]
[2021-04-26] MEDS: D5W/0.45% NACL/KCL 20 MEQ 20 MEQ/1,000 ML BAG IV SCH ×2 (18:47→22:27)
[2021-04-26 19:02] LABS: Hematocrit 36.3 % (30.3-42.9); Hemoglobin 11.5 gm/dl (10.1-14.3); Mean Corpuscular HGB Conc 32 % (30-34); Mean Corpuscular Volume 89 fl (79-97); Platelet Count 265 K/mm3 (140-440); Red Blood Count 4.08 M/mm3 (3.65-5.03); Red Cell Distribution Width 13.9 % (13.2-15.2)
[2021-04-26 19:14] LABS: INR 0.9 (0.87-1.13)
[2021-04-26 19:15] LABS: Partial Thromboplastin Time 38.5 Sec. (24.2-36.6)
[2021-04-26] MEDS: APIXABAN 5 MG TAB PO SCH (22:28)
[2021-04-26] MEDS: INSULIN GLARGINE 100 UNITS/ML SUB-Q SCH (22:29)
[2021-04-27] MEDS: IPRATROPIUM/ALBUTEROL SULFATE 3 ML AMPUL.NEB IH SCH ×3 (07:57→20:52)
[2021-04-27] MEDS: FAMOTIDINE 20 MG TAB PO SCH ×2 (10:29→22:10)
[2021-04-27] MEDS: LISINOPRIL 5 MG TAB PO SCH (10:29)
[2021-04-27] MEDS: APIXABAN 5 MG TAB PO SCH ×2 (10:30→22:10)
[2021-04-27] MEDS: INSULIN LISPRO 100 UNIT/ML SUB-Q SCH ×4 (10:30→22:51)
[2021-04-27] MEDS: D5W/0.45% NACL/KCL 20 MEQ 20 MEQ/1,000 ML BAG IV SCH (10:31)
[2021-04-27] MEDS: INSULIN REGULAR, HUMAN 100 UNITS/1 ML SUB-Q SCH ×4 (10:31→22:09)
--- NOTE | 2021-04-27 15:58 | Discharge Summary ---
Providers - Providers Date of Admission: 04/21/21 23:53 Date of discharge: 04/27/21 Attending physician: THERON KEITH 04/22/21 01:39 Consult to Dietitian/Nutrition [CONS] Routine Physician Instructions: Reason For Exam: Reason for Consult: Diet education Consult to Physician [CONS] Routine Comment: Consulting Provider: CLAY PUENTES Physician Instructions: Reason For Exam: covid Consult to Physician [CONS] Routine Comment: Consulting Provider: PUJA BARBOSA Physician Instructions: Reason For Exam: covid 04/22/21 17:43 Consult to Physician [CONS] Routine Comment: Consulting Provider: LALO HOU Physician Instructions: Reason For Exam: ICU management 04/23/21 12:50 Physical Therapy Evaluation and Treat [CONS] Routine Comment: Reason For Exam: Generalized Weakness Mode of Transport?: Walker Weight bearing status?: Partial wt bearing Assistive devices?: No 04/25/21 07:49 Consult to Case Management [CONS] Routine Services Needed at Discharge: Home O2 Notified:: correctional case records supervisor 04/25/21 07:50 Physical Therapy Evaluation and Treat [CONS] Routine Comment: Reason For Exam: debility Primary care physician: ORACLE APPLICATION ARCHITECT Hospitalization Condition: Fair Hospital course: COVID-19 x2 negative; 04/22/2021 and 04/24/2021 #Acute respiratory failure with hypoxia Multifactorial between pulmonary embolism and suspected COVID-19 pneumonia -COVID PCR re ordered -CTA chest demonstrates pulmonary embolism, patchy multifocal infiltrates noted. Currently on supplemental oxygen nasal cannula 4 L/min PCCM consulted ID consulted #Pulmonary embolism -No prior history of VTE. Possibly due to underlying COVID disease process -Anticoagulation with therapeutic Lovenox Transition to Eliquis, Continue oxygen #Bilateral Pneumonia - CTA findings as above - suspect viral etiology with high suspicion for covid - hold off on abx for now due to low procal - supplemental O2 as above - may restart decadron and consider experimental therapies if repeat covid is negative as well. ID pulmonary following #Severe sepsis - bcx/ucx/scx - empiric abx for cap coverage d/c due to normal procal. - decadron d/c, will resume if repeat covid + - ID consulted on admission #Person under investigation for COVID 19 PNA -elevated inflammatory markers -CTA chest highly suspicious for findings consistent with COVID-19 pneumonia COVID-19 RT-PCR negative on 04/22, suspect this was a false negative. repeat covid 19 rt pcr ordered #Diabetic ketoacidosis -Likely precipitated by Decadron/underlying infection - gap: 17 -Currently on insulin gtt. - Fluids with d5-1/2 NS - serial bmp q4hr. - [facility] consult #Type 2 diabetes with hyperglycemia -home regimen: 20 units insulin N qAM, INsulin R 10 units with meals +SSI. patient makes adjustments based on CGM readings - A1c: 9.7 - management as above. May need adjustment of PM insulin due to elevated BG in evenings. - can recommend optimization of home regimen on discharge. #Syncope -Could be explained by pulmonary embolism, initial cardiac troponin 0.01 Dictation box Disposition: HOME / SELF CARE / HOMELESS Final Discharge Diagnosis (Prints w/discharge instructions): Acute hypoxic respiratory failure/resolved. Pulmonary embolism. Bilateral pneumonia. Severe sepsis. COVID-19 negative x2. Diabetic ketoacidosis resolved. Type 2 diabetes mellitus. Syncope Core Measure Documentation - Palliative Care Palliative Care/ Comfort Measures: Not Applicable - Core Measures Any of the following diagnoses?: none Exam - Constitutional Vitals: Temp Pulse Resp BP Pulse Ox 97.9 F 89 16 155/77 95 04/27/21 08:26 04/27/21 08:26 04/27/21 08:26 04/27/21 08:26 04/27/21 08:26 General appearance: Present: no acute distress, well-nourished - EENT Eyes: Present: PERRL, EOM intact - Neck Neck: Present: supple, normal ROM - Respiratory Respiratory effort: normal Respiratory: bilateral: diminished, negative: rales, rhonchi, wheezing - Cardiovascular Rhythm: regular Heart Sounds: Present: S1 & S2 - Extremities Extremities: no ischemia, No edema - Abdominal General gastrointestinal: Present: soft, non-tender, non-distended, normal bowel sounds - Integumentary Integumentary: Present: clear, warm - Musculoskeletal Musculoskeletal: strength equal bilaterally - Psychiatric Psychiatric: appropriate mood/affect, cooperative - Neurologic Neurologic: CNII-XII intact, moves all extremities Plan Activity: advance as tolerated Diet: diabetic Additional Instructions: If you have worsening symptoms contact MD or go to emergency room as needed. Advised to follow primary care physician in 3 to 5 days. Follow-up with job press operator, private electric range assembler per schedule\. If you have worsening symptoms contact MD or go to the nearest emergency room as needed. Your COVID test is negative Follow up with: LALO HOU MD [Staff Physician] - 14 Days PRIMARY CARE, [Primary Care Provider] - 3-5 Days TREVOR LEE MD [Staff Physician] - 10 Days Prescriptions: Apixaban [Eliquis] 2 tab PO Q12H #24 Apixaban [Eliquis] 5 mg PO Q12HR #60 tablet Insulin Regular, Human [HumuLIN R] 5 units SUB-Q ACHS #1 vial Insulin Glargine [Lantus VIAL] 15 units SUB-Q QHS #1 vial Famotidine [Pepcid] 20 mg PO BID #30 tablet Albuterol Mdi (or & Nicu Only) [ProAir HFA Inhaler] 2 puff IH QID PRN #8.5 gram PRN Reason: Shortness Of Breath
--- NOTE | 2021-04-27 17:28 | Progress Note ---
Assessment and Plan 70 y/o female with acute respiratory failure secondary to pulmonary embolism and DKA resolved. 04/27/21: No objection to discharge today pullinus gonzales. Follow up with either pulmonary or heme. Doppler studies were negative for DVT so will need hypercoaguable work up as an outpatient as well as appropriate age related malignancy screening. 04/26/21: WIll order doppler studies. Suggest switching to oral therapy for PE. Will need heme follow up. Will also need walk test to assess oxygen needs prior to discharge. 04/25/21: Per patient had been in a car for more than 4 hours. Denies pain or swelling in legs. Need to check doppler studies. If DVT present then this is likely the cause of PE and patient can have definitive time line for anticoagulation. If not, then see recs below from 04/24. Wean FiO2 as tolerated. 04/24/21: If not repeat covid testing needs hypercoaguable work up. Suggest sending the following now: Anti thrombin 3, Prothombin gene mutation, factor V leiden and homocysteine levels. Cannot send Protein C and S during acute VTE. Also need to make sure she has had the proper [employer] and age appropriate related health screening for malignancy (pap, colonoscopy, mammogram, etc). Wean FiO2 as tolerated for sats >88%. Will need ambulatory test prior to discharge. Will continue to follow. Gap is 20 measured and 16 when calculated. Anticoagulation for PE. If COVID negative needs hypercoag work up. LE dopplers Should be able to downgrade to floor, which one pending COVID testing. Subjective Date of service: 04/27/21 Interval history: No acute events. weaned to room air Objective Vital Signs - 12hr 04/27/21 04/27/21 04/27/21 07:57 08:10 08:26 Temperature 97.9 F Pulse Rate 89 Pulse Rate [ 84 Anterior] Respiratory 16 Rate Respiratory 20 Rate [Anterior] Blood Pressure 155/77 O2 Sat by Pulse 94 95 Oximetry 04/27/21 15:29 Temperature 97.9 F Pulse Rate 91 H Pulse Rate [ Anterior] Respiratory 16 Rate Respiratory Rate [Anterior] Blood Pressure 156/72 O2 Sat by Pulse 96 Oximetry CBC and BMP: 04/26/21 18:35 04/26/21 18:35 ABG, PT/INR, D-dimer: ABG ABG pH 7.358 pH Units (7.350-7.450) 04/21/21 23:23 ABG pCO2 25.4 mm Hg 04/21/21 23:23 ABG pO2 79.4 mm Hg (80.0-90.0) L 04/21/21 23:23 ABG O2 Saturation 95.6 % (95.0-99.0) 04/21/21 23:23 PT/INR, D-dimer PT 13.2 Sec. (12.2-14.9) 04/26/21 18:35 INR 0.90 (0.87-1.13) 04/26/21 18:35 D-Dimer > 75016 ng/mlDDU (0-234) H 04/21/21 21:39 Abnormal lab findings: Abnormal Labs 04/21/21 04/21/21 04/21/21 21:39 21:39 21:39 MCH Love % (Auto) Lymph # (Auto) Seg Neutrophils % Seg Neuts % (Manual) Lymphocytes % (Manual) Seg Neutrophils # Man Lymphocytes # (Manual) PT 15.5 H APTT D-Dimer > 91658 H ABG pO2 ABG HCO3 ABG Base Excess ABG Hemoglobin Oxyhemoglobin Sodium Chloride Carbon Dioxide BUN Creatinine Glucose 439 H POC Glucose Hemoglobin A1c Calcium Ferritin 399.4 H Lactate Dehydrogenase 509 H C-Reactive Protein 19.00 H Total Protein Albumin Ur Specific [place] Urine WBC (Auto) 04/21/21 04/21/21 04/21/21 21:39 21:39 21:39 MCH Love % (Auto) Lymph # (Auto) Seg Neutrophils % Seg Neuts % (Manual) 89.0 H Lymphocytes % (Manual) 8.0 L Seg Neutrophils # Man 9.1 H Lymphocytes # (Manual) 0.8 L PT APTT D-Dimer ABG pO2 ABG HCO3 ABG Base Excess ABG Hemoglobin Oxyhemoglobin Sodium 134 L Chloride 93.8 L Carbon Dioxide 16 L BUN 20 H Creatinine Glucose 430 H 428 H POC Glucose Hemoglobin A1c Calcium Ferritin Lactate Dehydrogenase 498 H C-Reactive Protein 18.70 H Total Protein Albumin 3.5 L Ur Specific [place] Urine WBC (Auto) 04/21/21 04/22/21 04/22/21 23:23 01:15 09:16 MCH Love % (Auto) Lymph # (Auto) Seg Neutrophils % Seg Neuts % (Manual) Lymphocytes % (Manual) Seg Neutrophils # Man Lymphocytes # (Manual) PT APTT D-Dimer ABG pO2 79.4 L ABG HCO3 14.0 L ABG Base Excess -10.0 L ABG Hemoglobin 11.2 L Oxyhemoglobin 94.4 L Sodium Chloride Carbon Dioxide BUN Creatinine Glucose POC Glucose 532 H Hemoglobin A1c Calcium Ferritin Lactate Dehydrogenase C-Reactive Protein Total Protein Albumin Ur Specific [place] 1.054 H Urine WBC (Auto) 20.0 H 04/22/21 04/22/21 04/22/21 12:07 13:05 13:05 MCH Love % (Auto) Lymph # (Auto) Seg Neutrophils % Seg Neuts % (Manual) Lymphocytes % (Manual) Seg Neutrophils # Man Lymphocytes # (Manual) PT APTT D-Dimer ABG pO2 ABG HCO3 ABG Base Excess ABG Hemoglobin Oxyhemoglobin Sodium 132 L Chloride 92.7 L Carbon Dioxide 8 L* D BUN 28 H Creatinine Glucose 624 H* POC Glucose > 600 H Hemoglobin A1c 9.7 H Calcium Ferritin Lactate Dehydrogenase C-Reactive Protein Total Protein Albumin Ur Specific [place] Urine WBC (Auto) 04/22/21 04/22/21 04/22/21 15:01 17:41 17:59 MCH Love % (Auto) Lymph # (Auto) Seg Neutrophils % Seg Neuts % (Manual) Lymphocytes % (Manual) Seg Neutrophils # Man Lymphocytes # (Manual) PT APTT D-Dimer ABG pO2 ABG HCO3 ABG Base Excess ABG Hemoglobin Oxyhemoglobin Sodium 131 L 136 L Chloride 95.8 L Carbon Dioxide 9 L* 11 L BUN 27 H 24 H Creatinine Glucose 558 H* 435 H POC Glucose 413 H Hemoglobin A1c Calcium Ferritin Lactate Dehydrogenase C-Reactive Protein Total Protein Albumin 3.2 L Ur Specific [place] Urine WBC (Auto) 04/22/21 04/22/21 04/23/21 20:10 23:16 02:32 MCH Love % (Auto) Lymph # (Auto) Seg Neutrophils % Seg Neuts % (Manual) Lymphocytes % (Manual) Seg Neutrophils # Man Lymphocytes # (Manual) PT APTT D-Dimer ABG pO2 ABG HCO3 ABG Base Excess ABG Hemoglobin Oxyhemoglobin Sodium Chloride Carbon Dioxide 18 L D BUN 24 H Creatinine Glucose 252 H POC Glucose 317 H 131 H Hemoglobin A1c Calcium Ferritin Lactate Dehydrogenase C-Reactive Protein Total Protein Albumin Ur Specific [place] Urine WBC (Auto) 04/23/21 04/23/21 04/23/21 05:18 05:18 06:18 MCH 27 L Love % (Auto) Lymph # (Auto) Seg Neutrophils % Seg Neuts % (Manual) 99.0 H Lymphocytes % (Manual) 0 L Seg Neutrophils # Man 10.5 H Lymphocytes # (Manual) 0.0 L PT APTT D-Dimer ABG pO2 ABG HCO3 ABG Base Excess ABG Hemoglobin Oxyhemoglobin Sodium Chloride Carbon Dioxide 17 L BUN 23 H Creatinine Glucose 240 H POC Glucose 285 H Hemoglobin A1c Calcium Ferritin Lactate Dehydrogenase C-Reactive Protein Total Protein Albumin 3.2 L Ur Specific [place] Urine WBC (Auto) 04/23/21 04/23/21 04/23/21 07:38 09:51 11:26 MCH Love % (Auto) Lymph # (Auto) Seg Neutrophils % Seg Neuts % (Manual) Lymphocytes % (Manual) Seg Neutrophils # Man Lymphocytes # (Manual) PT APTT D-Dimer ABG pO2 ABG HCO3 ABG Base Excess ABG Hemoglobin Oxyhemoglobin Sodium Chloride Carbon Dioxide BUN Creatinine Glucose POC Glucose 325 H 348 H 324 H Hemoglobin A1c Calcium Ferritin Lactate Dehydrogenase C-Reactive Protein Total Protein Albumin Ur Specific [place] Urine WBC (Auto) 04/23/21 04/23/21 04/23/21 13:23 14:31 15:27 MCH Love % (Auto) Lymph # (Auto) Seg Neutrophils % Seg Neuts % (Manual) Lymphocytes % (Manual) Seg Neutrophils # Man Lymphocytes # (Manual) PT APTT D-Dimer ABG pO2 ABG HCO3 ABG Base Excess ABG Hemoglobin Oxyhemoglobin Sodium Chloride 107.3 H Carbon Dioxide 20 L BUN 25 H Creatinine Glucose 214 H POC Glucose 257 H 220 H Hemoglobin A1c Calcium Ferritin Lactate Dehydrogenase C-Reactive Protein Total Protein Albumin Ur Specific [place] Urine WBC (Auto) 04/23/21 04/23/21 04/23/21 16:18 18:22 18:33 MCH Love % (Auto) Lymph # (Auto) Seg Neutrophils % Seg Neuts % (Manual) Lymphocytes % (Manual) Seg Neutrophils # Man Lymphocytes # (Manual) PT APTT D-Dimer ABG pO2 ABG HCO3 ABG Base Excess ABG Hemoglobin Oxyhemoglobin Sodium Chloride 109.8 H Carbon Dioxide 20 L BUN 25 H Creatinine Glucose 215 H POC Glucose 203 H 178 H Hemoglobin A1c Calcium Ferritin Lactate Dehydrogenase C-Reactive Protein Total Protein Albumin Ur Specific [place] Urine WBC (Auto) 04/23/21 04/23/2104/23/22 20:10 21:19 22:27 MCH Love % (Auto) Lymph # (Auto) Seg Neutrophils % Seg Neuts % (Manual) Lymphocytes % (Manual) Seg Neutrophils # Man Lymphocytes # (Manual) PT APTT D-Dimer ABG pO2 ABG HCO3 ABG Base Excess ABG Hemoglobin Oxyhemoglobin Sodium Chloride Carbon Dioxide BUN Creatinine Glucose POC Glucose 211 H 215 H 186 H Hemoglobin A1c Calcium Ferritin Lactate Dehydrogenase C-Reactive Protein Total Protein Albumin Ur Specific [place] Urine WBC (Auto) 04/23/21 04/23/21 04/24/21 23:32 23:53 02:37 MCH Love % (Auto) Lymph # (Auto) Seg Neutrophils % Seg Neuts % (Manual) Lymphocytes % (Manual) Seg Neutrophils # Man Lymphocytes # (Manual) PT APTT D-Dimer ABG pO2 ABG HCO3 ABG Base Excess ABG Hemoglobin Oxyhemoglobin Sodium Chloride 111.0 H Carbon Dioxide 20 L BUN 24 H Creatinine 0.5 L Glucose 156 H POC Glucose 152 H 111 H Hemoglobin A1c Calcium 8.3 L Ferritin Lactate Dehydrogenase C-Reactive Protein Total Protein Albumin Ur Specific [place] Urine WBC (Auto) 04/24/21 04/24/21 04/24/21 03:55 04:08 06:28 MCH Love % (Auto) Lymph # (Auto) Seg Neutrophils % Seg Neuts % (Manual) Lymphocytes % (Manual) Seg Neutrophils # Man Lymphocytes # (Manual) PT APTT D-Dimer ABG pO2 ABG HCO3 ABG Base Excess ABG Hemoglobin Oxyhemoglobin Sodium Chloride 108.9 H Carbon Dioxide 21 L BUN 22 H Creatinine Glucose 114 H POC Glucose 111 H 129 H Hemoglobin A1c Calcium Ferritin Lactate Dehydrogenase C-Reactive Protein Total Protein 5.9 L Albumin 3.1 L Ur Specific [place] Urine WBC (Auto) 04/24/21 04/24/21 04/24/21 09:16 09:36 10:30 MCH Love % (Auto) Lymph # (Auto) Seg Neutrophils % Seg Neuts % (Manual) Lymphocytes % (Manual) Seg Neutrophils # Man Lymphocytes # (Manual) PT APTT D-Dimer ABG pO2 ABG HCO3 ABG Base Excess ABG Hemoglobin Oxyhemoglobin Sodium Chloride 111.1 H Carbon Dioxide BUN 19 H Creatinine 0.5 L Glucose 153 H POC Glucose 134 H 122 H Hemoglobin A1c Calcium Ferritin Lactate Dehydrogenase C-Reactive Protein Total Protein Albumin Ur Specific [place] Urine WBC (Auto) 04/24/21 04/24/21 04/24/21 11:53 12:43 14:34 MCH Love % (Auto) Lymph # (Auto) Seg Neutrophils % Seg Neuts % (Manual) Lymphocytes % (Manual) Seg Neutrophils # Man Lymphocytes # (Manual) PT APTT D-Dimer ABG pO2 ABG HCO3 ABG Base Excess ABG Hemoglobin Oxyhemoglobin Sodium Chloride 111.0 H 107.7 H Carbon Dioxide 21 L BUN Creatinine 0.5 L 0.5 L Glucose 190 H 201 H POC Glucose 141 H Hemoglobin A1c Calcium 8.3 L Ferritin Lactate Dehydrogenase C-Reactive Protein Total Protein Albumin Ur Specific [place] Urine WBC (Auto) 04/24/21 04/24/21 04/25/21 18:30 22:34 04:45 MCH Love % (Auto) Lymph # (Auto) Seg Neutrophils % Seg Neuts % (Manual) Lymphocytes % (Manual) Seg Neutrophils # Man Lymphocytes # (Manual) PT APTT D-Dimer ABG pO2 ABG HCO3 ABG Base Excess ABG Hemoglobin Oxyhemoglobin Sodium Chloride Carbon Dioxide 21 L BUN Creatinine 0.5 L Glucose 322 H POC Glucose 352 H 146 H Hemoglobin A1c Calcium Ferritin Lactate Dehydrogenase C-Reactive Protein Total Protein 6.0 L Albumin 2.9 L Ur Specific [place] Urine WBC (Auto) 04/25/21 04/25/21 04/25/21 10:16 17:19 21:20 MCH Love % (Auto) Lymph # (Auto) Seg Neutrophils % Seg Neuts % (Manual) Lymphocytes % (Manual) Seg Neutrophils # Man Lymphocytes # (Manual) PT APTT D-Dimer ABG pO2 ABG HCO3 ABG Base Excess ABG Hemoglobin Oxyhemoglobin Sodium Chloride Carbon Dioxide BUN Creatinine Glucose POC Glucose 394 H 306 H 288 H Hemoglobin A1c Calcium Ferritin Lactate Dehydrogenase C-Reactive Protein Total Protein Albumin Ur Specific [place] Urine WBC (Auto) 04/26/21 04/26/21 04/26/21 03:59 03:59 07:45 MCH Love % (Auto) 10.1 H Lymph # (Auto) 0.9 L Seg Neutrophils % 72.2 H Seg Neuts % (Manual) Lymphocytes % (Manual) Seg Neutrophils # Man Lymphocytes # (Manual) PT APTT D-Dimer ABG pO2 ABG HCO3 ABG Base Excess ABG Hemoglobin Oxyhemoglobin Sodium 146 H Chloride Carbon Dioxide BUN 22 H Creatinine Glucose POC Glucose 138 H Hemoglobin A1c Calcium Ferritin Lactate Dehydrogenase C-Reactive Protein Total Protein Albumin Ur Specific [place] Urine WBC (Auto) 04/26/21 04/26/21 04/26/21 11:05 16:59 18:35 MCH Love % (Auto) Lymph # (Auto) Seg Neutrophils % Seg Neuts % (Manual) Lymphocytes % (Manual) Seg Neutrophils # Man Lymphocytes # (Manual) PT APTT 38.5 H D-Dimer ABG pO2 ABG HCO3 ABG Base Excess ABG Hemoglobin Oxyhemoglobin Sodium Chloride Carbon Dioxide BUN Creatinine Glucose POC Glucose 291 H 377 H Hemoglobin A1c Calcium Ferritin Lactate Dehydrogenase C-Reactive Protein Total Protein Albumin Ur Specific [place] Urine WBC (Auto) 04/26/21 04/27/21 04/27/21 20:58 08:25 11:15 MCH Love % (Auto) Lymph # (Auto) Seg Neutrophils % Seg Neuts % (Manual) Lymphocytes % (Manual) Seg Neutrophils # Man Lymphocytes # (Manual) PT APTT D-Dimer ABG pO2 ABG HCO3 ABG Base Excess ABG Hemoglobin Oxyhemoglobin Sodium Chloride Carbon Dioxide BUN Creatinine Glucose POC Glucose 332 H 156 H 216 H Hemoglobin A1c Calcium Ferritin Lactate Dehydrogenase C-Reactive Protein Total Protein Albumin Ur Specific [place] Urine WBC (Auto) 04/27/21 15:28 MCH Love % (Auto) Lymph # (Auto) Seg Neutrophils % Seg Neuts % (Manual) Lymphocytes % (Manual) Seg Neutrophils # Man Lymphocytes # (Manual) PT APTT D-Dimer ABG pO2 ABG HCO3 ABG Base Excess ABG Hemoglobin Oxyhemoglobin Sodium Chloride Carbon Dioxide BUN Creatinine Glucose POC Glucose 232 H Hemoglobin A1c Calcium Ferritin Lactate Dehydrogenase C-Reactive Protein Total Protein Albumin Ur Specific [place] Urine WBC (Auto)
[2021-04-27] MEDS: INSULIN GLARGINE 100 UNITS/ML SUB-Q SCH (22:10)
[2021-04-28 05:40] LABS: Hematocrit 34.4 % (30.3-42.9); Mean Corpuscular HGB Conc 32 % (30-34); Mean Corpuscular Volume 88 fl (79-97); Platelet Count 251 K/mm3 (140-440); Red Blood Count 3.92 M/mm3 (3.65-5.03); Red Cell Distribution Width 13.9 % (13.2-15.2)
[2021-04-28] MEDS: IPRATROPIUM/ALBUTEROL SULFATE 3 ML AMPUL.NEB IH SCH (07:54)
[2021-04-28 09:29] VITALS: BP 151/69
[2021-04-28] MEDS: LISINOPRIL 5 MG TAB PO SCH (09:50)
[2021-04-28] MEDS: FAMOTIDINE 20 MG TAB PO SCH (09:50)
[2021-04-28] MEDS: APIXABAN 5 MG TAB PO SCH (09:50)
[2021-05-03] MEDS ORDERED: APIXABAN 5 MG TAB PO SCH (22:00)
== END 2021-04-28 10:15 | disposition home or self-care (01) | DRG 871 ==
LOC: ED 19:59 → IMCU 23:53 → 3A 04-22 02:04 → CC1 04-22 17:45 → 3A 04-24 13:05 → 4A 04-25 06:24
PROVIDERS: ADMIT Hospitalist; ATTEND Internal Medicine
PROC: 4A033R1 Measurement of Arterial Saturation, Peripheral, Percutaneous Approach (ICD-10-PCS; principal; 2021-04-21)
DX: A41.9 Sepsis, unspecified organism (principal); J18.9 Pneumonia, unspecified organism; E11.10 Type 2 diabetes mellitus with ketoacidosis without coma; J96.01 Acute respiratory failure with hypoxia; I26.99 Other pulmonary embolism without acute cor pulmonale; R65.20 Severe sepsis without septic shock; Z20.822 Contact with and (suspected) exposure to COVID-19; E11.65 Type 2 diabetes mellitus with hyperglycemia; I10 Essential (primary) hypertension; E78.5 Hyperlipidemia, unspecified; E66.9 Obesity, unspecified; Z68.32 Body mass index [BMI] 32.0-32.9, adult
CPT/HCPCS: 36415; 70450; 71045; 71275; 80048; 80053; 81001; 82140; 82565; 82728; 82803; 82947; 82962; 83036; 83615; 83735; 84100; 84145; 84484; 85007; 85025; 85027; 85379; 85610; 85730; 86140; 87040; 87086; 93005; 93306; 93970; 94640; 94644; 94760; G0378; J3480; J3490; J7070; Q0162; Q9967; J0456; J0696; J1100; J1650; J1815; J7030; J7040; U0003